=== PATIENT | male | born 1940 | race Caucasian/White ===

== ENCOUNTER 2019-07-25 04:36 | Inpatient (IN) | payer MEDICARE, OTHER ==
[~2019-07-25] VITALS: Ht 180.3 cm; Wt 91.1 kg
[2019-07-25 05:18] LABS: Basophils # (auto) 0 uL; Basophils % (auto) 0.3 % (0.0-2.0); Eosinophils # (auto) 0 uL; Eosinophils % (auto) 0.1 % (0.0-7.0); Hematocrit 43.4 % (41.0-53.0); Hemoglobin 14.8 g/dL (13.5-17.5); Lymphocytes # (auto) 0.5 uL; Mean Corpuscular Hemoglobin 31.9 pg (28.0-32.0); Mean Corpuscular Hgb Conc. 34.1 g/dL (32.0-36.0); Mean Corpuscular Volume 93.5 fL (80.0-100.0); Monocytes # (auto) 0.9 uL; Monocytes % (auto) 12.3 % (0.0-12.0); Neutrophils % (auto) 80.3 % (37.0-80.0); Platelet Count (auto) 136 10^3/uL (140-450); Red Blood Cells 4.64 10^6/uL (4.5-5.90); Red Cell Distribution Width 14.3 % (11.8-14.3); White Blood Cell 7.5 10^3/uL (4.4-10.8)
[2019-07-25 05:34] LABS: Albumin 3.6 g/dL (3.4-5.0); Calcium 8.8 mg/dL (8.5-10.1); Potassium 3.7 mmol/L (3.5-5.1)
[2019-07-25 05:39] LABS: BUN/Creatinine Ratio 8.6; Bilirubin, Total 0.8 mg/dL (0.2-1.0); Total Protein 7.2 g/dL (6.4-8.2)
[2019-07-25 05:45] LABS: INR 1.17 (0.9-1.15)
[2019-07-25] MEDS ORDERED: ENOXAPARIN SOD 100 MG/1 ML SYRINGE SC ONE (07:30)
[2019-07-25] MEDS ORDERED: FUROSEMIDE 40 MG/4 ML VIAL IV ONE (07:30)
[2019-07-25] MEDS ORDERED: CLOPIDOGREL BISULFATE 75 MG TAB PO ONE (07:30)
[2019-07-25] MEDS ORDERED: LACTULOSE 20Gm/30ML SOLN PO PRN (09:15)
[2019-07-25] MEDS ORDERED: TEMAZEPAM 15 MG CAP PO PRN (09:15)
[2019-07-25] MEDS ORDERED: MORPHINE SULF INJ 2 MG/ML SYRINGE 1ML IV PRN (09:15)
[2019-07-25] MEDS ORDERED: NITROGLYCERIN 0.4 MG SL TAB SL PRN (09:15)
[2019-07-25] MEDS ORDERED: ACETAMINOPHEN 500 MG TAB PO PRN (09:15)
[2019-07-25] MEDS ORDERED: PROMETHAZINE HCL 25 MG/ML 1ML IV PRN (09:15)
[2019-07-25] MEDS ORDERED: traMADol HCL 50 MG TAB PO PRN (09:15)
[2019-07-25] MEDS ORDERED: DEXTROSE (50%) 50ML SYRG IV PRN (09:15)
[2019-07-25] MEDS: ASPirin 81 mg TAB PO SCH (10:00)
[2019-07-25] MEDS ORDERED: CLOPIDOGREL BISULFATE 75 MG TAB PO SCH (10:00)
[2019-07-25] MEDS: CARVEDILOL 3.125 MG TAB PO SCH ×2 (10:00→11:38)
[2019-07-25] MEDS ORDERED: ASPirin 81 mg TAB PO SCH (10:00)
[2019-07-25] MEDS: NITROGLYCERIN 0.2MG/HR TOPICAL PATCH TD SCH (10:00)
[2019-07-25] MEDS: ENOXAPARIN SOD 80 MG/0.8ML SYRINGE SC SCH ×2 (10:00→22:00)
[2019-07-25] MEDS: ENALAPRIL MALEATE 2.5 MG TAB PO SCH (10:00)
[2019-07-25] MEDS: FUROSEMIDE 40 MG/4 ML VIAL IV SCH (10:00)
[2019-07-25] MEDS: POTASSIUM CHL 20 Meq TABLET PO SCH (10:00)
[2019-07-25] MEDS ORDERED: ALBUTEROL SULF 2.5 MG/0.5ML(0.5%) NEB SOLN NEB PRN (10:15)
[2019-07-25 10:55] VITALS: BP 104/41
[2019-07-25] MEDS: InsuLIN REG 1unit/0.01ml Soln (100units/ml) SC SCH ×2 (11:30→17:00)
[2019-07-25] MEDS: ACCU-CHEK COMFORT CURVE STRIP VI SCH ×3 (11:40→22:26)
[2019-07-25] MEDS ORDERED: ADENOSINE 76 MG in GIVE UN-DILUTED 0 ML IV STA (12:15)
[2019-07-25] MEDS: IPRATROPIUM BROM 0.5 MG/2.5ML INH SOL NEB SCH ×2 (12:46→18:00)
[2019-07-25] MEDS: ALBUTEROL SULF 2.5 MG/0.5ML(0.5%) NEB SOLN NEB SCH ×2 (12:46→18:00)
[2019-07-25] MEDS: SODIUM CHLOR 0.9% PF (SALINE LOCK) 10ML VIAL/SYR IV SCH ×2 (14:00→22:00)
[2019-07-25] MEDS: CLINDAMYCIN 600MG IV 50 ML IV SCH ×2 (14:00→23:40)
[2019-07-25 21:16] LABS: Urine Bacteria NONE SEEN /hpf (None Seen); Urine Blood Negative /uL (Negative); Urine Specific Gravity 1.016 (1.001-1.035); Urine WBC <1 /hpf (0 - 3)
[2019-07-25] MEDS: ATORVASTATIN 20 MG TAB PO SCH (23:40)
[2019-07-25] MEDS: TICAGRELOR 90 MG TAB PO SCH (23:41)
[2019-07-26] MEDS ORDERED: DEXTROSE (50%) 50ML SYRG IV PRN (02:30)
[2019-07-26 04:29] LABS: Basophils # (auto) 0 uL; Basophils % (auto) 0.5 % (0.0-2.0); Eosinophils # (auto) 0 uL; Eosinophils % (auto) 0.4 % (0.0-7.0); Hematocrit 44.1 % (41.0-53.0); Hemoglobin 14.8 g/dL (13.5-17.5); Lymphocytes # (auto) 1.1 uL; Mean Corpuscular Hemoglobin 31.5 pg (28.0-32.0); Mean Corpuscular Hgb Conc. 33.6 g/dL (32.0-36.0); Mean Corpuscular Volume 93.7 fL (80.0-100.0); Monocytes # (auto) 1.2 uL; Monocytes % (auto) 17.3 % (0.0-12.0); Neutrophils # (auto) 4.4 uL; Neutrophils % (auto) 65.8 % (37.0-80.0); Nucleated Red Blood Cells % 0.2 %; Platelet Count (auto) 134 10^3/uL (140-450); Red Blood Cells 4.71 10^6/uL (4.5-5.90); Red Cell Distribution Width 14.7 % (11.8-14.3); White Blood Cell 6.7 10^3/uL (4.4-10.8)
[2019-07-26 04:47] LABS: Albumin 3.5 g/dL (3.4-5.0); Calcium 8.8 mg/dL (8.5-10.1); Potassium 4.2 mmol/L (3.5-5.1)
[2019-07-26 04:51] LABS: BUN/Creatinine Ratio 20.6; Bilirubin, Total 0.6 mg/dL (0.2-1.0); Total Protein 7.1 g/dL (6.4-8.2)
[2019-07-26] MEDS: InsuLIN REG 1unit/0.01ml Soln (100units/ml) SC SCH ×3 (07:00→17:59)
[2019-07-26] MEDS: ACCU-CHEK COMFORT CURVE STRIP VI SCH ×3 (07:00→17:59)
[2019-07-26] MEDS: SODIUM CHLOR 0.9% PF (SALINE LOCK) 10ML VIAL/SYR IV SCH ×3 (07:28→22:00)
[2019-07-26] MEDS: CLINDAMYCIN 600MG IV 50 ML IV SCH ×3 (07:28→22:10)
[2019-07-26] MEDS: ALBUTEROL SULF 2.5 MG/0.5ML(0.5%) NEB SOLN NEB SCH ×4 (10:04→18:32)
[2019-07-26] MEDS: IPRATROPIUM BROM 0.5 MG/2.5ML INH SOL NEB SCH ×4 (10:04→18:32)
[2019-07-26] MEDS: FUROSEMIDE 40 MG/4 ML VIAL IV SCH (13:24)
[2019-07-26] MEDS: LEVOFLOXACIN 500MG 100 ML IV SCH (13:24)
[2019-07-26] MEDS: ENALAPRIL MALEATE 2.5 MG TAB PO SCH (13:25)
[2019-07-26] MEDS: ASPirin 81 mg TAB PO SCH (13:25)
[2019-07-26] MEDS: POTASSIUM CHL 20 Meq TABLET PO SCH (13:25)
[2019-07-26] MEDS: ENOXAPARIN SOD 80 MG/0.8ML SYRINGE SC SCH ×2 (13:25→21:58)
[2019-07-26] MEDS: CARVEDILOL 3.125 MG TAB PO SCH ×2 (13:25→22:09)
[2019-07-26] MEDS: TICAGRELOR 90 MG TAB PO SCH ×2 (13:25→22:43)
[2019-07-26] MEDS: NITROGLYCERIN 0.2MG/HR TOPICAL PATCH TD SCH (13:25)
--- NOTE | 2019-07-26 17:20 | NUR ---
ATTEMPTED TO CALL ALICIA SIM IN ER, PLACED ON HOLD FOR LONG PERIOD OF TIME NO ANSWER
--- NOTE | 2019-07-26 17:23 | NUR ---
PT ARRIVED ON UNIT Telemetry admit from MEREDITH KIDD admitted to Telemetry unit after SBAR received. Patient oriented to JACKSON RAMÍREZ, primary RN, unit, room, bed, and unit policies regarding patient care and visiting hours. Patient now on continuous telemetry monitoring, tele box # 70 and telemetry reading on arrival to unit is . Patient placed on bedside oxygen, weighed by bedscale and encouraged to call if they need something. All questions and concerns addressed, patient verbalized understanding. Note:
[2019-07-26 18:10] VITALS: BP 125/68
--- NOTE | 2019-07-26 20:00 | NUR ---
Opening Shift Note Assumed care of patient, awake and alert. No S/S of distress/SOB or pain. Patient's significant other at bedside. Patient instructed on POC and to call for assist PRN, will continue to monitor for changes Q1hr and PRN. Patient up using bedside commode. He denies any dizziness or lightheadedness. Bed in low position and call light in reach.
[2019-07-26 21:44] VITALS: BP 125/68
[2019-07-26] MEDS: ATORVASTATIN 20 MG TAB PO SCH (21:57)
[2019-07-27] MEDS: ACCU-CHEK COMFORT CURVE STRIP VI SCH ×4 (00:11→17:46)
[2019-07-27] MEDS: ALBUTEROL SULF 2.5 MG/0.5ML(0.5%) NEB SOLN NEB SCH ×4 (00:14→19:53)
[2019-07-27] MEDS: IPRATROPIUM BROM 0.5 MG/2.5ML INH SOL NEB SCH ×4 (00:14→19:53)
[2019-07-27 05:10] VITALS: BP 141/80
[2019-07-27] MEDS: CLINDAMYCIN 600MG IV 50 ML IV SCH ×3 (05:59→21:57)
[2019-07-27] MEDS: SODIUM CHLOR 0.9% PF (SALINE LOCK) 10ML VIAL/SYR IV SCH ×3 (06:10→22:12)
[2019-07-27] MEDS: InsuLIN REG 1unit/0.01ml Soln (100units/ml) SC SCH ×4 (06:11→17:47)
[2019-07-27 08:16] LABS: Potassium 3.8 mmol/L (3.5-5.1)
[2019-07-27 08:34] LABS: BUN/Creatinine Ratio 19.3; Magnesium 2.4 mg/dL (1.6-2.6)
[2019-07-27 09:00] VITALS: BP 137/76
[2019-07-27] MEDS: FUROSEMIDE 40 MG/4 ML VIAL IV SCH (10:10)
[2019-07-27] MEDS: LEVOFLOXACIN 500MG 100 ML IV SCH (10:10)
[2019-07-27] MEDS: TICAGRELOR 90 MG TAB PO SCH ×2 (10:11→21:54)
[2019-07-27] MEDS: ASPirin 81 mg TAB PO SCH (10:11)
[2019-07-27] MEDS: CARVEDILOL 3.125 MG TAB PO SCH ×2 (10:11→21:56)
[2019-07-27] MEDS: ENOXAPARIN SOD 80 MG/0.8ML SYRINGE SC SCH ×2 (10:11→22:12)
[2019-07-27] MEDS: ENALAPRIL MALEATE 2.5 MG TAB PO SCH (10:11)
[2019-07-27] MEDS: POTASSIUM CHL 20 Meq TABLET PO SCH (10:11)
[2019-07-27] MEDS: NITROGLYCERIN 0.2MG/HR TOPICAL PATCH TD SCH (10:12)
[2019-07-27 12:30] VITALS: BP 129/66
[2019-07-27] MEDS ORDERED: TAMS0.4C36 PO (12:59)
[2019-07-27] MEDS ORDERED: FINA5TAB4 PO (12:59)
[2019-07-27] MEDS ORDERED: TICA90TA PO (12:59)
[2019-07-27] MEDS ORDERED: LATA0.0015 EACHEYE (12:59)
[2019-07-27] MEDS ORDERED: ATOR20TA50 PO (12:59)
[2019-07-27] MEDS ORDERED: ALLO300T2 PO (12:59)
[2019-07-27] MEDS ORDERED: ASPI-404 PO (12:59)
[2019-07-27] MEDS ORDERED: METO-158 PO (12:59)
[2019-07-27] MEDS ORDERED: LOSA100T33 PO (12:59)
[2019-07-27 17:00] VITALS: BP 139/79
--- NOTE | 2019-07-27 20:00 | NUR ---
Opening Shift Note Assumed care of patient, awake and alert. No S/S of distress/SOB or pain. Instructed on POC and to call for assist PRN, will continue to monitor for changes Q1hr and PRN.
[2019-07-27] MEDS: ATORVASTATIN 20 MG TAB PO SCH (21:55)
[2019-07-27 22:28] VITALS: BP 118/48
[2019-07-28] MEDS: IPRATROPIUM BROM 0.5 MG/2.5ML INH SOL NEB SCH ×4 (01:25→19:18)
[2019-07-28] MEDS: ALBUTEROL SULF 2.5 MG/0.5ML(0.5%) NEB SOLN NEB SCH ×4 (01:25→19:18)
--- NOTE | 2019-07-28 01:25 | NUR ---
RT NOTE: PT CHECKED BY RT @ THIS TIME. PT SLEEPING. PT PREVIOUSLY REQUESTED NOT TO BE WOKEN UP FOR 0000 SCHEDULED MED NEB TX. NO SOB OR DISTRESS NOTED. WILL CONT SCHEDULED TX @ 0600.
[2019-07-28 05:58] VITALS: BP 146/76
[2019-07-28] MEDS: ACCU-CHEK COMFORT CURVE STRIP VI SCH ×4 (06:10→17:37)
[2019-07-28] MEDS: InsuLIN REG 1unit/0.01ml Soln (100units/ml) SC SCH ×4 (06:10→17:37)
[2019-07-28] MEDS: SODIUM CHLOR 0.9% PF (SALINE LOCK) 10ML VIAL/SYR IV SCH ×3 (06:10→22:18)
[2019-07-28] MEDS: CLINDAMYCIN 600MG IV 50 ML IV SCH ×3 (06:11→22:15)
[2019-07-28 07:06] LABS: BUN/Creatinine Ratio 24.1; Calcium 8.3 mg/dL (8.5-10.1); Potassium 3.8 mmol/L (3.5-5.1)
[2019-07-28 08:35] VITALS: BP 120/66
[2019-07-28 08:49] VITALS: BP 120/66
--- NOTE | 2019-07-28 09:37 | NUR ---
PT IS AMBULATING IN [facility] WITH . D/C FROM [facility]
[2019-07-28] MEDS: ASPirin 81 mg TAB PO SCH (10:42)
[2019-07-28] MEDS: FUROSEMIDE 40 MG/4 ML VIAL IV SCH (10:42)
[2019-07-28] MEDS: LEVOFLOXACIN 500MG 100 ML IV SCH (10:42)
[2019-07-28] MEDS: TICAGRELOR 90 MG TAB PO SCH ×2 (10:42→22:15)
[2019-07-28] MEDS: ENALAPRIL MALEATE 2.5 MG TAB PO SCH (10:43)
[2019-07-28] MEDS: ENOXAPARIN SOD 80 MG/0.8ML SYRINGE SC SCH ×2 (10:43→22:17)
[2019-07-28] MEDS: CARVEDILOL 3.125 MG TAB PO SCH ×2 (10:43→22:17)
[2019-07-28] MEDS: POTASSIUM CHL 10 Meq TABLET PO SCH (10:43)
[2019-07-28 12:37] VITALS: BP 114/67
[2019-07-28 17:34] VITALS: BP 126/78
--- NOTE | 2019-07-28 17:56 | NUR ---
Respiratory note: AT BEDSIDE FOR MED HAMLET YANEZ.
[2019-07-28] MEDS: ATORVASTATIN 20 MG TAB PO SCH (22:16)
[2019-07-28 23:54] VITALS: BP 142/73
[2019-07-29] VITALS (9 sets, daily range): BP systolic 128–168; BP diastolic 67–97
[2019-07-29] MEDS: ALBUTEROL SULF 2.5 MG/0.5ML(0.5%) NEB SOLN NEB SCH ×4 (00:04→18:18)
[2019-07-29] MEDS: IPRATROPIUM BROM 0.5 MG/2.5ML INH SOL NEB SCH ×4 (00:04→18:18)
[2019-07-29] MEDS: InsuLIN REG 1unit/0.01ml Soln (100units/ml) SC SCH ×4 (06:00→17:37)
[2019-07-29] MEDS: ACCU-CHEK COMFORT CURVE STRIP VI SCH ×4 (06:00→17:37)
[2019-07-29 06:06] LABS: Basophils # (auto) 0 uL; Basophils % (auto) 0.4 % (0.0-2.0); Eosinophils # (auto) 0.1 uL; Eosinophils % (auto) 3.2 % (0.0-7.0); Hematocrit 40.8 % (41.0-53.0); Hemoglobin 13.9 g/dL (13.5-17.5); Lymphocytes % (auto) 21.9 % (10.0-50.0); Mean Corpuscular Hemoglobin 31.7 pg (28.0-32.0); Mean Corpuscular Volume 93.2 fL (80.0-100.0); Monocytes # (auto) 0.5 uL; Neutrophils # (auto) 2.7 uL; Neutrophils % (auto) 62.5 % (37.0-80.0); Nucleated Red Blood Cells % 0.1 %; Platelet Count (auto) 131 10^3/uL (140-450); Red Blood Cells 4.38 10^6/uL (4.5-5.90); Red Cell Distribution Width 14.5 % (11.8-14.3); White Blood Cell 4.4 10^3/uL (4.4-10.8)
[2019-07-29] MEDS: CLINDAMYCIN 600MG IV 50 ML IV SCH ×3 (06:19→22:19)
[2019-07-29] MEDS: SODIUM CHLOR 0.9% PF (SALINE LOCK) 10ML VIAL/SYR IV SCH ×3 (06:19→22:21)
[2019-07-29 06:28] LABS: Calcium 8.6 mg/dL (8.5-10.1); Potassium 3.8 mmol/L (3.5-5.1)
[2019-07-29 06:31] LABS: INR 1.11 (0.9-1.15); Partial Thromboplastin Time 29.3 sec (23.64-32.05)
--- NOTE | 2019-07-29 07:30 | NUR ---
Opening Shift Note Assumed care of patient, awake and alert. No S/S of distress/SOB. Pt denies having any pain at this time. Bed in lowest and locked position with side rails up x2 and call light within reach. Instructed on POC and to call for assist PRN, will continue to monitor for changes Q1hr and PRN.
--- NOTE | 2019-07-29 08:25 | NUR ---
IV removal RIGHT FA IV DC'd with clean sterile technique, catheter fully intact. Pressure dressing applied to site. Patient tolerated well.
--- NOTE | 2019-07-29 08:30 | NUR ---
IV insertion IV access obtained, via clean sterile technique by inserting 20 gauge catheter at RIGHT FA after 1 attempt(s). IV secured properly. No trauma to site. Patient tolerated well.
--- NOTE | 2019-07-29 09:10 | NUR ---
PATIENT TAKEN TO GOVERNMENT OPERATIONS CONSULTANT.
[2019-07-29] MEDS: ENOXAPARIN SOD 80 MG/0.8ML SYRINGE SC SCH (10:00)
[2019-07-29] MEDS ORDERED: fentaNYL CITRATE 100 MCG/2 ML VL ONE (10:35)
[2019-07-29] MEDS ORDERED: ANGIOMAX 250 MG VIAL IV ONE ×2 (10:35→12:13)
[2019-07-29] MEDS ORDERED: SODIUM CHL 0.9% 50 ML ONE ×2 (10:36→12:13)
[2019-07-29] MEDS ORDERED: LIDOCAINE 2%HCL (LOCAL ANESTH.) INJ 20ML MDV ONE (10:36)
[2019-07-29] MEDS ORDERED: MIDAZOLAM HCL 1MG/1ML-2 ML VIAL ONE ×2 (10:36→11:32)
--- NOTE | 2019-07-29 11:18 | NUR ---
Respiratory note: SCHEDULED MED NEB TX NOT GIVEN. PT AT A PROCEDURE
[2019-07-29] MEDS ORDERED: IODIXANOL 320MG/ML 100ML BTL IV ONE (11:30)
--- NOTE | 2019-07-29 12:55 | NUR ---
NUTRITION ASSESSMENT NOTES Please refer to link notes of nutrition screen form filed under the intervention section of the plan of care for further details. Est. Needs: 2000 kcal to 2400 kcal (25-30 kcal/kgBW), 64 gms to 81 gms pro (0.8-1.0 gms/kgBW). Will continue to monitor pertinent labs and reassess nutrient need prn Thank you. Addendum: 07/29/19 at [address] Amended: Links added.
--- NOTE | 2019-07-29 13:15 | NUR ---
Per RN pt is on hold until tomorrow. Addendum: 07/29/19 at 1557 by Dmitry Suh PTA Amended: Links added.
[2019-07-29] MEDS ORDERED: PANTOPRAZOLE 40 MG/10 ML VIAL INJ IV ONE (14:00)
--- NOTE | 2019-07-29 14:20 | NUR ---
RECEIVED REPORT FROM SUPERVISOR CUSTOMER SERVICES RN, KRISTEN. AWAITING CALL BACK.
--- NOTE | 2019-07-29 14:45 | NUR ---
PATIENT ARRIVED TO FLOOR FROM DENITRATOR. PATIENT LAYING FLAT IN BED, TOLERATING WELL. NO S/S OF SOB OR DISTRESS. BED IN LOWEST AND LOCKED POSITION WITH SIDE RAILS UP X2 AND CALL LIGHT WITHIN REACH. WILL CONTINUE TO MONITOR.
[2019-07-29] MEDS: FUROSEMIDE 40 MG/4 ML VIAL IV SCH (15:05)
[2019-07-29] MEDS: ASPirin 81 mg TAB PO SCH (15:05)
[2019-07-29] MEDS: CARVEDILOL 3.125 MG TAB PO SCH (15:06)
[2019-07-29] MEDS: TICAGRELOR 90 MG TAB PO SCH ×2 (15:06→22:19)
[2019-07-29] MEDS: ENALAPRIL MALEATE 2.5 MG TAB PO SCH (15:06)
[2019-07-29] MEDS: POTASSIUM CHL 10 Meq TABLET PO SCH (15:07)
--- NOTE | 2019-07-29 16:03 | NUR ---
Assessment SW attempted to do SW assessment twice today, once during the morning and once in the afternoon. Pt's bed was missing during both visits. Pt will assess for pt's needs closer to d/c. Addendum: 07/29/19 at 1605 by CLIFFORD LORD SS Amended: Links added.
[2019-07-29] MEDS ORDERED: cloNIDine HCL 0.1 MG TAB PO PRN (17:15)
--- NOTE | 2019-07-29 17:16 | NUR ---
SPOKE TO MAO WOODWARD REGARDING PATIENTS BLOOD PRESSURE AND BLOOD ON PATIENTS SHEET. TRACE AWARE, NO NEW ORDERS RECEIVED AT THIS TIME.
--- NOTE | 2019-07-29 21:05 | NUR ---
Opening Shift Note Assumed care of patient, awake and alert. Family on bedside. Dressing in groin clean,dry and intact. No S/S of distress/SOB or pain. Instructed on POC and to call for assist PRN, will continue to monitor for changes Q1hr and PRN.
[2019-07-29] MEDS: ATORVASTATIN 20 MG TAB PO SCH (22:21)
[2019-07-29] MEDS: CARVEDILOL 12.5 MG TAB PO SCH (22:21)
--- NOTE | 2019-07-30 | NUR ---
Respiratory note: PT REFUSED SCHED MED NEB TX. PT IS RESTING IN BED WITH NO S/S OF SOB OR DISTRESS. RN AT BEDSIDE. WILL CONTINUE TO MONITOR.
[2019-07-30 05:00] VITALS: BP 123/71
[2019-07-30] MEDS: ALBUTEROL SULF 2.5 MG/0.5ML(0.5%) NEB SOLN NEB SCH ×4 (05:35→18:00)
[2019-07-30] MEDS: IPRATROPIUM BROM 0.5 MG/2.5ML INH SOL NEB SCH ×4 (05:35→18:00)
[2019-07-30 06:00] LABS: Basophils # (auto) 0 uL; Basophils % (auto) 0.3 % (0.0-2.0); Eosinophils # (auto) 0 uL; Eosinophils % (auto) 0.2 % (0.0-7.0); Hematocrit 40.9 % (41.0-53.0); Lymphocytes # (auto) 0.6 uL; Lymphocytes % (auto) 6.8 % (10.0-50.0); Mean Corpuscular Hemoglobin 32.1 pg (28.0-32.0); Mean Corpuscular Hgb Conc. 34.3 g/dL (32.0-36.0); Mean Corpuscular Volume 93.6 fL (80.0-100.0); Monocytes # (auto) 0.6 uL; Monocytes % (auto) 6.8 % (0.0-12.0); Neutrophils # (auto) 7.4 uL; Neutrophils % (auto) 85.9 % (37.0-80.0); Nucleated Red Blood Cells % 0.1 %; Platelet Count (auto) 141 10^3/uL (140-450); Red Blood Cells 4.37 10^6/uL (4.5-5.90); Red Cell Distribution Width 14.6 % (11.8-14.3); White Blood Cell 8.7 10^3/uL (4.4-10.8)
[2019-07-30] MEDS: InsuLIN REG 1unit/0.01ml Soln (100units/ml) SC SCH ×4 (06:00→18:00)
[2019-07-30] MEDS: ACCU-CHEK COMFORT CURVE STRIP VI SCH ×4 (06:00→18:00)
[2019-07-30 06:33] LABS: Potassium 5.2 mmol/L (3.5-5.1)
[2019-07-30 06:42] LABS: BUN/Creatinine Ratio 21.9; Calcium 8.8 mg/dL (8.5-10.1); Magnesium 2.4 mg/dL (1.6-2.6)
[2019-07-30] MEDS: SODIUM CHLOR 0.9% PF (SALINE LOCK) 10ML VIAL/SYR IV SCH ×2 (06:52→14:17)
[2019-07-30] MEDS: CLINDAMYCIN 600MG IV 50 ML IV SCH ×2 (06:53→14:17)
--- NOTE | 2019-07-30 08:00 | NUR ---
PATIENT STATED THAT HE IS HAVING DIFFICULTIES VOIDING. PATIENT STATED "I USE MEDICATION DUE TO MY PROSTATE PROBLEMS". PAGED DR. METCALF, AWAITING CALL BACK.
--- NOTE | 2019-07-30 08:44 | NUR ---
Faxed Life Vest order/clinical information to JOSE A.
[2019-07-30 09:00] VITALS: BP_SYST 128; BP_SYST 133; BP_DIAS 70; BP_DIAS 75
[2019-07-30] MEDS: POTASSIUM CHL 10 Meq TABLET PO SCH (10:00)
[2019-07-30] MEDS ORDERED: PANTOPRAZOLE 40 MG/10 ML VIAL INJ IV SCH (10:00)
--- NOTE | 2019-07-30 10:00 | NUR ---
PATIENTS RIGHT GROIN INCISION HAS BRUISING AND IS SOFT TO TOUCH. BRUISING WAS TRACED AND PAGED DR. METCALF.
--- NOTE | 2019-07-30 10:00 | NUR ---
PATIENT EDUCATION. RN EDUCATED PATIENT ON THE RISKS OF THE INCISION SITE AND THE RISKS AND BENEFITS OF RESTRAINING FROM ANY STRENUOUS ACTIVITY AND CONTINUING BED REST. THE RN ALSO EDUCATED THE PATIENT ON THE IMPORTANCE OF MONITORING THE INCISION SITE. PATIENT VERBALIZED UNDERSTANDING AND STATED "I JUST CANT LAY IN BED ALL DAY".
--- NOTE | 2019-07-30 10:02 | NUR ---
SPOKE TO DR. METCALF REGARDING PATIENT HOME MEDICATIONS. NEW ORDERS RECEIVED, READ BACK AND VERIFIED. SEE EMR FOR ORDERS.
[2019-07-30] MEDS ORDERED: FINASTERIDE 5 MG TAB PO SCH (10:15)
--- NOTE | 2019-07-30 10:30 | NUR ---
SPOKE TO DR. METCALF. RN NOTIFIED DR. METCALF THAT THE PATIENTS RIGHT GROIN INCISION SITE HAS BRUISING AND IS SOFT TO TOUCH. RN NOTIFIED MD THAT THE PATIENT HAS NOT VOIDED AT THIS TIME. MD AWARE. ORDERS RECEIVED TO VERIFY WITH CARDIOLOGY THAT THE PATIENT CAN BE DISCHARGED.
[2019-07-30] MEDS: ASPirin 81 mg TAB PO SCH (10:51)
[2019-07-30] MEDS: TICAGRELOR 90 MG TAB PO SCH (10:51)
[2019-07-30] MEDS: FUROSEMIDE 40 MG/4 ML VIAL IV SCH (10:52)
[2019-07-30] MEDS: CARVEDILOL 12.5 MG TAB PO SCH (10:53)
[2019-07-30] MEDS: ENALAPRIL MALEATE 2.5 MG TAB PO SCH (10:54)
--- NOTE | 2019-07-30 11:00 | NUR ---
IV insertion AND IV removal IV access obtained, via clean sterile technique by inserting 20 gauge catheter at LEFT FA after 1 attempt(s). IV secured properly. No trauma to site. Patient tolerated well. RIGHT FA IV INFILTRATED AND DC'd with clean sterile technique, catheter fully intact. Pressure dressing applied to site. Heat applied to right FA and Dr. Avila notified of infiltration. Patient tolerated well.
--- NOTE | 2019-07-30 11:15 | NUR ---
PAGED DR. MASSEY REGARDING RIGHT GROIN INCISION. AWAITING CALL BACK.
--- NOTE | 2019-07-30 12:30 | NUR ---
PATIENT VERBALIZED THAT HE VOIDED IN THE TOILET. PATIENT STATED THAT HE IS UNABLE TO USE THE URINAL.
--- NOTE | 2019-07-30 12:47 | NUR ---
RECEIVED CALL BACK FROM DR. MASSEY REGARDING PATIENT INCISION SITE. RN NOTIFIED MD OF BRUISING AROUND THE RIGHT GROIN INCISION. MD AWARE AND NO NEW ORDERS RECEIVED AT THIS TIME. PER DR. MASSEY, THE PATIENT IS CLEAR FOR DISCHARGE.
[2019-07-30 13:00] VITALS: BP 138/75
[2019-07-30] MEDS ORDERED: PANT40TA2 PO (13:04)
[2019-07-30 13:55] LABS: BUN/Creatinine Ratio 21.5; Calcium 9.1 mg/dL (8.5-10.1); Potassium 4.2 mmol/L (3.5-5.1)
[2019-07-30] MEDS ORDERED: ENAL2.5T PO (15:14)
[2019-07-30] MEDS ORDERED: CARV25TA PO (15:14)
[2019-07-30] MEDS ORDERED: FURO1TAB33 PO (15:14)
--- NOTE | 2019-07-30 15:47 | NUR ---
RECEIVED CALL FROM [employer] VEST VENDOR. PER VENDOR, THE LIFE VEST WILL BE DELIVERED BETWEEN [phone] [facility].
--- NOTE | 2019-07-30 16:00 | NUR ---
SPOKE TO HUSSEIN WITH SOCIAL SERVICE. PER HUSSEIN, THE HOME HEALTH WILL BE SET UP AND THE PATIENT IS ABLE TO BE DISCHARGED.
--- NOTE | 2019-07-30 16:26 | NUR ---
re-assessment Per consult [facility] for safety, PT, medication management, vitals. Romy SIM gave patient choice letter and he chose [facility] per Romy SIM. Per [facility] service will start on 07/31/19. Patient has been notified. Addendum: 07/30/19 at 1631 by Gwen Nagy Amended: Links added.
--- NOTE | 2019-07-30 16:28 | NUR ---
Assessment Pt is a 87 yr old alert and oriented male. Prior to admit, pt lives with Laurence Vargas, who is his emergency contact at [phone] and [phone]. No DME used and pt was ambulatory and independent prior to admit. Pt's primary is Dr. Lozoya, has no AD, and receives income, with no HH prior. Pt is getting a life vest ordered currently and then will d/c home upon medical clearance. Pt is agreeable to d/c plan. Pt's tamiko will transport home upon d/c. Addendum: 07/30/19 at 1631 by CLIFFORD LORD Amended: Links added.
[2019-07-30 17:00] VITALS: BP 102/53
[2019-07-30 17:48] VITALS: BP 138/75
[2019-07-30] MEDS ORDERED: TAMSULOSIN HYDROCHLORIDE 0.4 MG CAP PO SCH (18:00)
--- NOTE | 2019-07-30 18:20 | NUR ---
PATIENT VERBALIZED THAT HE VOIDED IN THE TOILET AND THAT HE IS VOIDING "NORMALLY".
--- NOTE | 2019-07-30 19:30 | NUR ---
RECEIVED PATIENT IN BED, AAOX4. IS IIN THE ROOM. INTRODUCED MYSELF TO THE PATIENT, . ORIENTATION GIVEN. AWAITING FOR THE [employer] LIFE VEST. AWARE THAT HE IS BEING DISCHARGE HOME TONIGHT. DENIES ANY PAIN NO SOB NOTED. NO DISTRESS NOTED. RIGHT GROIN HAS A DRESSING WHICH IS CLEAN, DRY AND INTACT. SMALL HEMATOMA NOTED WHICH IS NOT PROGRESSING. MD IS AWARE. KEPT COMFORTABLE. NOTED.
--- NOTE | 2019-07-30 19:45 | NUR ---
[employer] VES STAFF DELIVERED THE EQUIPMENT TO THE PATIENT. THOROUGH EDUCATION PROVIDED TO THE PATIENT AND FAMILY. NOTED.
[2019-07-30 21:00] VITALS: BP 130/70
--- NOTE | 2019-07-30 21:00 | NUR ---
DISCHARGED PATIENT IN A STABLE CONDITION. EDUCATION PROVIDED. REMOVED IV ACCESS AND APPLIED STERILE DRESSING. REMOVED ALL ID BANDS. REMOVED TELE BOX AND SENT TO ICU AFTER CLEANING. BELONGINGS LIST SIGNED AND NOTHING IS MISSING. ADVISED TO CALL 911 OR VISIT ANY ER IF ANY SYMPTOM WORSENS. PATIENT IS WHEELED DOWN TO THE LOBBY VIA WHEEL CHAIR. VITALS ARE STABLE FOLLOWS: BP= 130/70 HR= 65 O2= 97% RA T= 98.0 RR= 18
== END 2019-07-30 20:57 | disposition home health service (06) | DRG 246 ==
LOC: ER 04:36 → EDBD 04:36 → OVERFLOW 04:37 → TELE-WESTW 07-26 17:51
PROVIDERS: ADMIT Internal Medicine; ATTEND Internal Medicine
PROC: 027036Z Dilation of Coronary Artery, One Artery with Three Drug-eluting Intraluminal Devices, Percutaneous Approach (ICD-10-PCS; principal; 2019-07-29)
PROC: 4A023N7 Measurement of Cardiac Sampling and Pressure, Left Heart, Percutaneous Approach (ICD-10-PCS; 2019-07-29)
PROC: B213YZZ Fluoroscopy of Multiple Coronary Artery Bypass Grafts using Other Contrast (ICD-10-PCS; 2019-07-29)
PROC: B218YZZ Fluoroscopy of Left Internal Mammary Bypass Graft using Other Contrast (ICD-10-PCS; 2019-07-29)
PROC: B211YZZ Fluoroscopy of Multiple Coronary Arteries using Other Contrast (ICD-10-PCS; 2019-07-29)
PROC: B215YZZ Fluoroscopy of Left Heart using Other Contrast (ICD-10-PCS; 2019-07-29)
DX: I21.4 Non-ST elevation (NSTEMI) myocardial infarction (principal); I50.43 Acute on chronic combined systolic (congestive) and diastolic (congestive) heart failure; J96.00 Acute respiratory failure, unspecified whether with hypoxia or hypercapnia; J44.1 Chronic obstructive pulmonary disease with (acute) exacerbation; E11.65 Type 2 diabetes mellitus with hyperglycemia; I25.10 Atherosclerotic heart disease of native coronary artery without angina pectoris; N40.0 Benign prostatic hyperplasia without lower urinary tract symptoms; E11.51 Type 2 diabetes mellitus with diabetic peripheral angiopathy without gangrene; E11.21 Type 2 diabetes mellitus with diabetic nephropathy; M19.90 Unspecified osteoarthritis, unspecified site; I12.9 Hypertensive chronic kidney disease with stage 1 through stage 4 chronic kidney disease, or unspecified chronic kidney disease; N18.9 Chronic kidney disease, unspecified; I25.5 Ischemic cardiomyopathy; E11.22 Type 2 diabetes mellitus with diabetic chronic kidney disease; Z95.820 Peripheral vascular angioplasty status with implants and grafts; Z95.1 Presence of aortocoronary bypass graft; Z79.84 Long term (current) use of oral hypoglycemic drugs; Z87.891 Personal history of nicotine dependence; Z79.899 Other long term (current) drug therapy; Z86.73 Personal history of transient ischemic attack (TIA), and cerebral infarction without residual deficits; Z86.718 Personal history of other venous thrombosis and embolism; E78.5 Hyperlipidemia, unspecified
CPT/HCPCS: 36415; 70450; 71045; 72192; 73630; 78452; 80048; 80053; 80061; 81001; 82550; 82962; 83036; 83735; 83880; 84484; 85025; 85379; 85610; 85652; 85730; 86141; 92928; 93005; 93017; 93306; 93459; 93886; 93926; 94640; 97110; 97116; 97530; 99152; 99153; C1874; C1887; C9113; G0378; J0153; J1815; J1956; J2250; J3490; Q9967

== ENCOUNTER → 2019-09-04 | Outpatient (CLI) | payer MEDICARE, OTHER ==
[~2019-09-04] MED LIST: ALLO300T2 PO; ASPI-404 PO; ATOR20TA50 PO; CARV25TA PO; ENAL2.5T PO; FINA5TAB4 PO; FURO1TAB33 PO; LATA0.0019 EACHEYE; PANT40TA2 PO; TAMS0.4C36 PO; TICA90TA PO
== END | disposition home or self-care (01) ==
LOC: Rad HDHVI 10:51
PROVIDERS: ATTEND Internal Medicine
DX: I08.8 Other rheumatic multiple valve diseases (principal); I50.9 Heart failure, unspecified; I42.9 Cardiomyopathy, unspecified; J44.9 Chronic obstructive pulmonary disease, unspecified
CPT/HCPCS: 93306

== ENCOUNTER → 2019-11-25 | Outpatient (CLI) | payer MEDICARE, OTHER | END | disposition home or self-care (01) | LOC: Rad HDHVI 07:56 | PROVIDERS: ATTEND Internal Medicine Cardiovascular Disease | DX: I35.0 Nonrheumatic aortic (valve) stenosis (principal); I25.10 Atherosclerotic heart disease of native coronary artery without angina pectoris; I42.9 Cardiomyopathy, unspecified; Z95.1 Presence of aortocoronary bypass graft; I51.7 Cardiomegaly | CPT/HCPCS: 93306 ==

== ENCOUNTER → 2020-03-02 | Outpatient (CLI) | payer MEDICARE, OTHER ==
[~2020-03-02] MED LIST changes: -ASPI-404 PO; +ASPI-543 PO; -ENAL2.5T PO; +ENAL2.5T7 PO
== END | disposition home or self-care (01) ==
LOC: Rad HDHVI 09:05
PROVIDERS: ATTEND Internal Medicine
DX: I08.2 Rheumatic disorders of both aortic and tricuspid valves (principal); I25.10 Atherosclerotic heart disease of native coronary artery without angina pectoris; I42.9 Cardiomyopathy, unspecified; Z95.5 Presence of coronary angioplasty implant and graft
CPT/HCPCS: 93306

== ENCOUNTER → 2020-07-20 | Outpatient (CLI) | payer MEDICARE, OTHER | END | disposition home or self-care (01) | LOC: Rad HDHVI 09:06 | PROVIDERS: ATTEND Internal Medicine | DX: I07.1 Rheumatic tricuspid insufficiency (principal); I35.8 Other nonrheumatic aortic valve disorders; I10 Essential (primary) hypertension; I25.10 Atherosclerotic heart disease of native coronary artery without angina pectoris | CPT/HCPCS: 93306 ==

== ENCOUNTER → 2020-07-23 | Outpatient (CLI) | payer MEDICARE, OTHER ==
[~2020-07-23] VITALS: Ht 179.1 cm; Wt 98.4 kg
[~2020-07-23] MED LIST changes: +ADENOSINE 83 MG in GIVE UN-DILUTED 0 ML IV ONE; +ADENOSINE 90 MG/30 ML INJ IV ONE
== END | disposition home or self-care (01) ==
LOC: Rad HDHVI 09:12
PROVIDERS: ATTEND Internal Medicine Cardiovascular Disease
DX: I25.10 Atherosclerotic heart disease of native coronary artery without angina pectoris (principal); I10 Essential (primary) hypertension; E78.00 Pure hypercholesterolemia, unspecified; J44.9 Chronic obstructive pulmonary disease, unspecified; Z82.49 Family history of ischemic heart disease and other diseases of the circulatory system; Z95.1 Presence of aortocoronary bypass graft
CPT/HCPCS: 78452; 93005; 96374; 96375; A9500; J0153

== ENCOUNTER → 2020-07-30 | Outpatient (CLI) | payer MEDICARE, OTHER ==
[~2020-07-30] MED LIST changes: -ADENOSINE 83 MG in GIVE UN-DILUTED 0 ML IV ONE; -ADENOSINE 90 MG/30 ML INJ IV ONE
[2020-07-30 11:48] LABS: Urine Blood Negative /uL (Negative); Urine Specific Gravity 1.012 (1.001-1.035)
[2020-07-30 11:53] LABS: Basophils # (auto) 0 10 ^3/uL (0-0.2); Basophils % (auto) 0.6 % (0.0-2.0); Eosinophils # (auto) 0.2 10 ^3/uL (0-0.8); Eosinophils % (auto) 3.2 % (0.0-7.0); Hematocrit 44.7 % (41.0-53.0); Hemoglobin 15.2 g/dL (13.5-17.5); Lymphocytes # (auto) 1.2 10 ^3/uL (0.4-5.4); Lymphocytes % (auto) 15.7 % (10.0-50.0); Mean Corpuscular Hemoglobin 30.8 pg (28.0-32.0); Mean Corpuscular Volume 90.5 fL (80.0-100.0); Monocytes # (auto) 0.7 10 ^3/uL (0-1.3); Monocytes % (auto) 9.4 % (0.0-12.0); Neutrophils # (auto) 5.3 10 ^3/uL (1.6-8.6); Neutrophils % (auto) 71.1 % (37.0-80.0); Nucleated Red Blood Cells % 0.4 %; Platelet Count (auto) 200 10^3/uL (140-450); Red Blood Cells 4.94 10^6/uL (4.5-5.90); Red Cell Distribution Width 13.9 % (11.8-14.3); White Blood Cell 7.5 10^3/uL (4.4-10.8)
[2020-07-30 11:56] LABS: Potassium 3.8 mmol/L (3.5-5.1)
[2020-07-30 12:02] LABS: Free T4 (Free Thyroxine) 1.59 ng/dL (0.89-1.76)
[2020-07-30 12:04] LABS: Albumin 3.5 g/dL (3.4-5.0); BUN/Creatinine Ratio 11.5; Bilirubin, Total 0.8 mg/dL (0.2-1.0); Total Protein 7.6 g/dL (6.4-8.2)
== END | disposition home or self-care (01) ==
LOC: LAB 08:27
PROVIDERS: ATTEND Internal Medicine
DX: C61 Malignant neoplasm of prostate (principal); D51.3 Other dietary vitamin B12 deficiency anemia; I10 Essential (primary) hypertension; E11.9 Type 2 diabetes mellitus without complications; E55.9 Vitamin D deficiency, unspecified; D64.9 Anemia, unspecified; R00.2 Palpitations; R53.1 Weakness; R30.0 Dysuria
CPT/HCPCS: 36415; 80053; 80061; 81003; 82306; 82607; 83036; 84153; 84403; 84439; 84443; 85025

== ENCOUNTER 2022-10-16 02:57 | Inpatient (IN) | payer MEDICARE, OTHER ==
[~2022-10-16] VITALS: Ht 175.3 cm; Wt 97.0 kg
[2022-10-16 03:44] LABS: Basophils # (auto) 0.1 10 ^3/uL (0-0.2); Basophils % (auto) 0.5 % (0.0-2.0); Eosinophils # (auto) 0.1 10 ^3/uL (0-0.8); Eosinophils % (auto) 0.9 % (0.0-7.0); Hematocrit 46.6 % (41.0-53.0); Hemoglobin 15.5 g/dL (13.5-17.5); Lymphocytes # (auto) 0.4 10 ^3/uL (0.4-5.4); Lymphocytes % (auto) 3.6 % (10.0-50.0); Mean Corpuscular Hemoglobin 30.3 pg (28.0-32.0); Mean Corpuscular Hgb Conc. 33.3 g/dL (32.0-36.0); Mean Corpuscular Volume 90.9 fL (80.0-100.0); Monocytes # (auto) 0.4 10 ^3/uL (0-1.3); Monocytes % (auto) 3.4 % (0.0-12.0); Neutrophils # (auto) 9.6 10 ^3/uL (1.6-8.6); Neutrophils % (auto) 91.6 % (37.0-80.0); Nucleated Red Blood Cells % 0.1 %; Red Blood Cells 5.13 10^6/uL (4.5-5.90); Red Cell Distribution Width 16.1 % (11.8-14.3); White Blood Cell 10.5 10^3/uL (4.4-10.8)
[2022-10-16 03:58] LABS: INR 1.07 (0.9-1.15); Partial Thromboplastin Time 22.2 sec (24.6-33.4)
[2022-10-16 04:00] LABS: Albumin 3.8 g/dL (3.4-5.0); Calcium 9.1 mg/dL (8.5-10.1); Magnesium 1.9 mg/dL (1.6-2.6); Potassium 4.1 mmol/L (3.5-5.1)
[2022-10-16 04:04] LABS: BUN/Creatinine Ratio 14.3 (10.0-20.0); Total Protein 7.4 g/dL (6.4-8.2)
[2022-10-16] MEDS ORDERED: cefTRIAXone SOD 1,000 MG VL IV ONE (05:00)
[2022-10-16] MEDS ORDERED: AZITHROMYCIN 250 MG TAB PO ONE (05:00)
[2022-10-16] MEDS ORDERED: PANTOPRAZOLE 40 MG/10 ML VIAL INJ IV ONE (08:45)
[2022-10-16] MEDS ORDERED: MORPHINE SULFATE INJ 2 MG/ml SYRG IV PRN (08:45)
[2022-10-16] MEDS ORDERED: DEXTROSE (50%) 50ML SYRG IV PRN (08:45)
[2022-10-16] MEDS ORDERED: NITROGLYCERIN 0.4 MG SL TAB SL PRN (08:45)
[2022-10-16] MEDS ORDERED: SACU1TAB4 PO (09:09)
[2022-10-16] MEDS ORDERED: ALBUTEROL SULF 2.5 MG/0.5ML(0.5%) NEB SOLN NEB PRN (09:15)
[2022-10-16] MEDS ORDERED: FUROSEMIDE 40 MG/4 ML VIAL IV ONE (09:15)
[2022-10-16] MEDS ORDERED: IPRATROPIUM BROM 0.5 MG/2.5ML INH SOL NEB PRN (09:15)
[2022-10-16 09:26] LABS: Urine Bacteria FEW /hpf (None Seen); Urine Blood 3+ /uL (Negative); Urine Budding Yeast MODERATE /hpf (None Seen); Urine Specific Gravity 1.017 (1.001-1.035); Urine WBC 81 /hpf (0 - 3)
[2022-10-16 09:46] LABS: Cholesterol 130 mg/dL (< 200); Triglycerides 63 mg/dL (< 150)
[2022-10-16 09:51] LABS: HDL Cholesterol 47 mg/dL (40-59); LDL Cholesterol 80 mg/dL (< 100)
[2022-10-16] MEDS ORDERED: TICAGRELOR 90 MG TAB PO SCH (10:00)
[2022-10-16] MEDS ORDERED: PATIENTS OWN MEDICATION (Carvedilol (Coreg) 1 TAB) PO SCH (10:00)
[2022-10-16] MEDS: PANTOPRAZOLE 40 MG/10 ML VIAL INJ IV SCH (10:00)
[2022-10-16] MEDS ORDERED: ENOXAPARIN SOD 40 MG/0.4 ML SYRINGE SC SCH (10:00)
[2022-10-16] MEDS: ALLOPURINOL 300 MG TAB PO SCH (10:31)
[2022-10-16] MEDS: ASPirin-EC 81 mg tab PO SCH (10:31)
[2022-10-16] MEDS: FINASTERIDE 5 MG TAB PO SCH (10:31)
[2022-10-16] MEDS: ATORVASTATIN 20 MG TAB PO SCH (10:31)
[2022-10-16] MEDS: POTASSIUM CHL 10 Meq TABLET PO SCH (10:31)
[2022-10-16] MEDS: CARVEDILOL 12.5 MG TAB PO SCH ×2 (11:50→21:50)
[2022-10-16] MEDS: ACCU-CHEK COMFORT CURVE STRIP VI SCH ×3 (11:51→21:50)
[2022-10-16] MEDS: InsuLIN REG 1unit/0.01ml Soln (100units/ml) SC SCH ×3 (12:35→22:00)
[2022-10-16] MEDS: IPRATROPIUM BROM 0.5 MG/2.5ML INH SOL NEB SCH ×2 (14:03→18:34)
[2022-10-16] MEDS: ALBUTEROL SULF 2.5 MG/0.5ML(0.5%) NEB SOLN NEB SCH ×2 (14:04→18:34)
[2022-10-16 17:16] VITALS: BP 115/85
[2022-10-16] MEDS: TAMSULOSIN HYDROCHLORIDE 0.4 MG CAP PO SCH (18:32)
[2022-10-16] MEDS: LATANOPROST 0.005 % OPTH(EYE) SOL 2.5ML EACHEYE SCH (18:37)
[2022-10-16 22:00] VITALS: BP 136/68
[2022-10-17] MEDS: IPRATROPIUM BROM 0.5 MG/2.5ML INH SOL NEB SCH ×5 (00:15→23:51)
[2022-10-17] MEDS: ALBUTEROL SULF 2.5 MG/0.5ML(0.5%) NEB SOLN NEB SCH ×5 (00:15→23:51)
[2022-10-17 05:00] VITALS: BP 127/63
[2022-10-17 06:13] LABS: Basophils # (auto) 0 10 ^3/uL (0-0.2); Basophils % (auto) 0.5 % (0.0-2.0); Eosinophils # (auto) 0 10 ^3/uL (0-0.8); Eosinophils % (auto) 0.1 % (0.0-7.0); Hematocrit 42.2 % (41.0-53.0); Lymphocytes # (auto) 0.6 10 ^3/uL (0.4-5.4); Lymphocytes % (auto) 6.6 % (10.0-50.0); Mean Corpuscular Hemoglobin 29.9 pg (28.0-32.0); Mean Corpuscular Hgb Conc. 33.2 g/dL (32.0-36.0); Mean Corpuscular Volume 90.1 fL (80.0-100.0); Monocytes # (auto) 0.8 10 ^3/uL (0-1.3); Neutrophils % (auto) 84.8 % (37.0-80.0); Nucleated Red Blood Cells % 0.2 %; Red Blood Cells 4.68 10^6/uL (4.5-5.90); Red Cell Distribution Width 16.3 % (11.8-14.3); White Blood Cell 9.4 10^3/uL (4.4-10.8)
[2022-10-17] MEDS: InsuLIN REG 1unit/0.01ml Soln (100units/ml) SC SCH ×4 (06:32→21:28)
[2022-10-17] MEDS: ACCU-CHEK COMFORT CURVE STRIP VI SCH ×4 (06:32→21:04)
[2022-10-17 06:34] LABS: Potassium 4.1 mmol/L (3.5-5.1)
[2022-10-17 06:57] LABS: Albumin 3.2 g/dL (3.4-5.0); BUN/Creatinine Ratio 19.3 (10.0-20.0); Bilirubin, Total 0.9 mg/dL (0.2-1.0); Calcium 8.9 mg/dL (8.5-10.1); Total Protein 6.6 g/dL (6.4-8.2)
[2022-10-17 08:30] VITALS: BP 132/75
[2022-10-17] MEDS: cefTRIAXone 1GM/50ML D5W 50 ML IV SCH (09:33)
[2022-10-17] MEDS: FINASTERIDE 5 MG TAB PO SCH (09:34)
[2022-10-17] MEDS: POTASSIUM CHL 10 Meq TABLET PO SCH (09:34)
[2022-10-17] MEDS: ATORVASTATIN 20 MG TAB PO SCH (09:34)
[2022-10-17] MEDS: ASPirin-EC 81 mg tab PO SCH (09:34)
[2022-10-17] MEDS: ALLOPURINOL 300 MG TAB PO SCH (09:34)
[2022-10-17] MEDS: TICAGRELOR 90 MG TAB PO SCH ×2 (09:34→21:27)
[2022-10-17] MEDS: PANTOPRAZOLE 40 MG/10 ML VIAL INJ IV SCH (09:35)
[2022-10-17] MEDS: CARVEDILOL 12.5 MG TAB PO SCH ×2 (09:35→21:04)
[2022-10-17] MEDS ORDERED: FUROSEMIDE 20 MG/2 ML VIAL IV SCH (10:00)
[2022-10-17] MEDS ORDERED: AZITHROMYCIN 500MG/ 250ML 250 ML IV SCH (10:00)
[2022-10-17] MEDS ORDERED: FUROSEMIDE 20 MG/2 ML VIAL IV ONE (12:00)
[2022-10-17 12:30] VITALS: BP 151/80
[2022-10-17 16:30] VITALS: BP 163/70
[2022-10-17] MEDS: LATANOPROST 0.005 % OPTH(EYE) SOL 2.5ML EACHEYE SCH (17:24)
[2022-10-17] MEDS: TAMSULOSIN HYDROCHLORIDE 0.4 MG CAP PO SCH (17:24)
[2022-10-17 22:00] VITALS: BP 132/57
[2022-10-18] MEDS: IPRATROPIUM BROM 0.5 MG/2.5ML INH SOL NEB SCH ×4 (00:34→18:46)
[2022-10-18] MEDS: ALBUTEROL SULF 2.5 MG/0.5ML(0.5%) NEB SOLN NEB SCH ×4 (00:34→18:46)
[2022-10-18 05:00] VITALS: BP 138/77
[2022-10-18 06:42] LABS: Potassium 4.2 mmol/L (3.5-5.1)
[2022-10-18 06:53] LABS: BUN/Creatinine Ratio 22.2 (10.0-20.0); Calcium 8.9 mg/dL (8.5-10.1)
[2022-10-18] MEDS: ACCU-CHEK COMFORT CURVE STRIP VI SCH ×4 (06:57→21:26)
[2022-10-18] MEDS: InsuLIN REG 1unit/0.01ml Soln (100units/ml) SC SCH ×4 (06:59→21:26)
[2022-10-18] MEDS: cefTRIAXone 1GM/50ML D5W 50 ML IV SCH (09:00)
[2022-10-18 09:10] VITALS: BP 138/69
[2022-10-18] MEDS: PANTOPRAZOLE 40 MG/10 ML VIAL INJ IV SCH (10:15)
[2022-10-18] MEDS: FINASTERIDE 5 MG TAB PO SCH (10:17)
[2022-10-18] MEDS: CARVEDILOL 12.5 MG TAB PO SCH ×2 (10:19→21:25)
[2022-10-18] MEDS: FUROSEMIDE 20 MG/2 ML VIAL IV SCH (10:20)
[2022-10-18] MEDS: ASPirin-EC 81 mg tab PO SCH (10:20)
[2022-10-18] MEDS: ATORVASTATIN 20 MG TAB PO SCH (10:20)
[2022-10-18] MEDS: TICAGRELOR 90 MG TAB PO SCH ×2 (10:20→21:25)
[2022-10-18] MEDS: POTASSIUM CHL 10 Meq TABLET PO SCH (10:20)
[2022-10-18] MEDS: ALLOPURINOL 300 MG TAB PO SCH (10:20)
[2022-10-18 12:48] VITALS: BP 116/76
[2022-10-18] MEDS: TAMSULOSIN HYDROCHLORIDE 0.4 MG CAP PO SCH (18:00)
[2022-10-18] MEDS: LATANOPROST 0.005 % OPTH(EYE) SOL 2.5ML EACHEYE SCH (18:00)
[2022-10-18 22:00] VITALS: BP 133/65
[2022-10-19] MEDS: ALBUTEROL SULF 2.5 MG/0.5ML(0.5%) NEB SOLN NEB SCH ×3 (00:01→12:12)
[2022-10-19] MEDS: IPRATROPIUM BROM 0.5 MG/2.5ML INH SOL NEB SCH ×3 (00:01→12:12)
[2022-10-19 05:00] VITALS: BP 131/65
[2022-10-19] MEDS: InsuLIN REG 1unit/0.01ml Soln (100units/ml) SC SCH ×2 (06:08→11:30)
[2022-10-19] MEDS: ACCU-CHEK COMFORT CURVE STRIP VI SCH ×2 (06:08→12:58)
[2022-10-19 09:21] VITALS: BP 127/66
[2022-10-19] MEDS: cefTRIAXone 1GM/50ML D5W 50 ML IV SCH (09:26)
[2022-10-19] MEDS: ALLOPURINOL 300 MG TAB PO SCH (09:27)
[2022-10-19] MEDS: FINASTERIDE 5 MG TAB PO SCH (09:27)
[2022-10-19] MEDS: POTASSIUM CHL 10 Meq TABLET PO SCH (09:27)
[2022-10-19] MEDS: ASPirin-EC 81 mg tab PO SCH (09:27)
[2022-10-19] MEDS: ATORVASTATIN 20 MG TAB PO SCH (09:27)
[2022-10-19] MEDS: FUROSEMIDE 20 MG/2 ML VIAL IV SCH (09:28)
[2022-10-19] MEDS: CARVEDILOL 12.5 MG TAB PO SCH (09:28)
[2022-10-19] MEDS: TICAGRELOR 90 MG TAB PO SCH (09:28)
[2022-10-19] MEDS ORDERED: PANTOPRAZOLE 40 MG TAB PO SCH (10:00)
[2022-10-19] MEDS ORDERED: FURO1TAB31 PO (11:38)
[2022-10-19] MEDS ORDERED: LEVO500T31 PO ×3 (11:38→11:42)
[2022-10-19 11:56] VITALS: BP 127/66
[2022-10-19 12:28] VITALS: BP 119/62
== END 2022-10-19 13:00 | disposition home or self-care (01) | DRG 871 ==
LOC: EDBD 02:57 → ER 02:57 → TELE 09:09 → TELE-WESTW 17:45
PROVIDERS: ADMIT Registered Nurse; ATTEND Internal Medicine
DX: A41.9 Sepsis, unspecified organism (principal); I50.43 Acute on chronic combined systolic (congestive) and diastolic (congestive) heart failure; J96.20 Acute and chronic respiratory failure, unspecified whether with hypoxia or hypercapnia; J44.0 Chronic obstructive pulmonary disease with (acute) lower respiratory infection; N39.0 Urinary tract infection, site not specified; I13.0 Hypertensive heart and chronic kidney disease with heart failure and stage 1 through stage 4 chronic kidney disease, or unspecified chronic kidney disease; N17.9 Acute kidney failure, unspecified; Z20.822 Contact with and (suspected) exposure to COVID-19; E78.5 Hyperlipidemia, unspecified; N18.31 Chronic kidney disease, stage 3a; E11.22 Type 2 diabetes mellitus with diabetic chronic kidney disease; E66.9 Obesity, unspecified; N40.0 Benign prostatic hyperplasia without lower urinary tract symptoms; M10.9 Gout, unspecified; Z83.3 Family history of diabetes mellitus; Z79.899 Other long term (current) drug therapy; Z95.1 Presence of aortocoronary bypass graft; I25.2 Old myocardial infarction; Z68.31 Body mass index [BMI] 31.0-31.9, adult
CPT/HCPCS: 36415; 36600; 71045; 80048; 80053; 80061; 81001; 82805; 82962; 83036; 83605; 83735; 83880; 84443; 84484; 85025; 85379; 85610; 85730; 87040; 87076; 87086; 87426; 93005; 93306; 93925; 93970; 94640; 96365; 96372; 96375; 97110; 97116; 97163; 97530; C9113; G0378; J0696; J1815

== ENCOUNTER 2022-11-28 12:06 | Inpatient (IN) | payer MEDICARE, BC ==
[~2022-11-28] VITALS: Ht 175.3 cm; Wt 94.8 kg
[~2022-11-28 12:06] MED LIST changes: +ENAL1TAB42 PO; -ENAL2.5T7 PO; +FURO1TAB31 PO; -LATA0.0019 EACHEYE; +LATA0.008 EACHEYE; +LEVO500T31 PO; +SACU1TAB4 PO
[2022-11-28 12:49] LABS: Basophils # (auto) 0.1 10 ^3/uL (0-0.2); Basophils % (auto) 0.5 % (0.0-2.0); Eosinophils # (auto) 0 10 ^3/uL (0-0.8); Eosinophils % (auto) 0.1 % (0.0-7.0); Hematocrit 45.3 % (41.0-53.0); Hemoglobin 15.1 g/dL (13.5-17.5); Lymphocytes # (auto) 1.1 10 ^3/uL (0.4-5.4); Mean Corpuscular Hemoglobin 29.6 pg (28.0-32.0); Mean Corpuscular Hgb Conc. 33.2 g/dL (32.0-36.0); Neutrophils # (auto) 15.1 10 ^3/uL (1.6-8.6); Neutrophils % (auto) 82.4 % (37.0-80.0); Red Blood Cells 5.09 10^6/uL (4.5-5.90); Red Cell Distribution Width 16.3 % (11.8-14.3); White Blood Cell 18.3 10^3/uL (4.4-10.8)
[2022-11-28 13:05] LABS: INR 1.14 (0.9-1.15); Partial Thromboplastin Time 26.2 sec (24.6-33.4)
[2022-11-28 13:11] LABS: Albumin 3.6 g/dL (3.4-5.0); BUN/Creatinine Ratio 11.7 (10.0-20.0); Calcium 9.1 mg/dL (8.5-10.1); Potassium 4.1 mmol/L (3.5-5.1)
[2022-11-28 13:35] LABS: Bilirubin, Total 1.5 mg/dL (0.2-1.0); Total Protein 6.9 g/dL (6.4-8.2)
[2022-11-28] MEDS ORDERED: FUROSEMIDE 40 MG/4 ML VIAL IV ONE (14:30)
[2022-11-28] MEDS ORDERED: ACETAMINOPHEN 325 MG TAB PO PRN (15:00)
[2022-11-28] MEDS ORDERED: DEXTROSE (50%) 50ML SYRG IV PRN (15:15)
[2022-11-28 16:47] LABS: Urine Bacteria FEW /hpf (None Seen); Urine Blood TRACE /uL (Negative); Urine Specific Gravity 1.014 (1.001-1.035); Urine WBC 576 /hpf (0 - 3); Urine WBC Clumps PRESENT /hpf (None Seen)
[2022-11-28 17:12] LABS: Alcohol, Urine < 3.0 mg/dL (0-10); Amphetamine Screen, Urine NEGATIVE (NEGATIVE)
[2022-11-28 17:15] LABS: Barbiturate Scree,Urine NEGATIVE (NEGATIVE); Benzodiazephine Screen, Urine NEGATIVE (NEGATIVE); Cannabinoid Screen, Urine NEGATIVE (NEGATIVE); Cocaine Screen, Urine NEGATIVE (NEGATIVE); Opiate Scree,Urine NEGATIVE (NEGATIVE); Phencyclidine Screen, Urine NEGATIVE (NEGATIVE)
[2022-11-28] MEDS: TAMSULOSIN HYDROCHLORIDE 0.4 MG CAP PO SCH (18:11)
[2022-11-28] MEDS: ACCU-CHEK COMFORT CURVE STRIP VI SCH ×2 (18:11→22:30)
[2022-11-28] MEDS: InsuLIN REG 1unit/0.01ml Soln (100units/ml) SC SCH ×2 (18:12→22:34)
[2022-11-28] MEDS: cefTRIAXone 1GM/50ML D5W 50 ML IV SCH (18:31)
[2022-11-28] MEDS ORDERED: SACUBITRIL VALSARTAN PO SCH (22:00)
[2022-11-28] MEDS: CARVEDILOL 3.125 MG TAB PO SCH (22:36)
[2022-11-28] MEDS: TICAGRELOR 90 MG TAB PO SCH (22:36)
[2022-11-29 05:41] LABS: Basophils # (auto) 0.1 10 ^3/uL (0-0.2); Basophils % (auto) 0.5 % (0.0-2.0); Eosinophils # (auto) 0 10 ^3/uL (0-0.8); Hematocrit 46.3 % (41.0-53.0); Hemoglobin 15.4 g/dL (13.5-17.5); Lymphocytes # (auto) 0.9 10 ^3/uL (0.4-5.4); Lymphocytes % (auto) 4.4 % (10.0-50.0); Mean Corpuscular Hemoglobin 29.8 pg (28.0-32.0); Mean Corpuscular Hgb Conc. 33.3 g/dL (32.0-36.0); Mean Corpuscular Volume 89.5 fL (80.0-100.0); Monocytes % (auto) 9.7 % (0.0-12.0); Neutrophils # (auto) 17.4 10 ^3/uL (1.6-8.6); Neutrophils % (auto) 85.4 % (37.0-80.0); Red Blood Cells 5.18 10^6/uL (4.5-5.90); Red Cell Distribution Width 15.8 % (11.8-14.3); White Blood Cell 20.4 10^3/uL (4.4-10.8)
[2022-11-29 05:57] LABS: Calcium 8.7 mg/dL (8.5-10.1); Potassium 3.7 mmol/L (3.5-5.1)
[2022-11-29 06:03] LABS: Albumin 3.1 g/dL (3.4-5.0); BUN/Creatinine Ratio 14.4 (10.0-20.0); Bilirubin, Total 1.9 mg/dL (0.2-1.0); Total Protein 7.2 g/dL (6.4-8.2)
[2022-11-29] MEDS: ACCU-CHEK COMFORT CURVE STRIP VI SCH ×4 (06:48→22:00)
[2022-11-29] MEDS: InsuLIN REG 1unit/0.01ml Soln (100units/ml) SC SCH ×4 (06:53→22:31)
[2022-11-29] MEDS: cefTRIAXone 1GM/50ML D5W 50 ML IV SCH (09:15)
[2022-11-29] MEDS ORDERED: PANTOPRAZOLE 40 MG TAB PO SCH (10:00)
[2022-11-29] MEDS ORDERED: ENOXAPARIN SOD 40 MG/0.4 ML SYRINGE SC SCH (10:00)
[2022-11-29] MEDS: FINASTERIDE 5 MG TAB PO SCH (11:52)
[2022-11-29] MEDS: CARVEDILOL 3.125 MG TAB PO SCH ×2 (11:52→22:29)
[2022-11-29] MEDS: ASPirin-EC 81 mg tab PO SCH (11:53)
[2022-11-29] MEDS: ALLOPURINOL 300 MG TAB PO SCH (11:53)
[2022-11-29] MEDS: TICAGRELOR 90 MG TAB PO SCH ×2 (11:53→22:28)
[2022-11-29] MEDS: ATORVASTATIN 20 MG TAB PO SCH (11:53)
[2022-11-29] MEDS: ENALAPRIL MALEATE 2.5 MG TAB PO SCH (11:53)
[2022-11-29 12:42] VITALS: BP 122/74
[2022-11-29 16:54] VITALS: BP 126/62
[2022-11-29] MEDS ORDERED: CEFEPIME 2 GM in SODIUM CHL 0.9% 50 ML IV SCH (17:00)
[2022-11-29] MEDS: TAMSULOSIN HYDROCHLORIDE 0.4 MG CAP PO SCH (17:05)
[2022-11-29] MEDS: CEFEPIME 2GM/50ML NS 50 ML IV SCH (17:08)
[2022-11-29 22:00] VITALS: BP 122/61
[2022-11-29] MEDS: SACUBITRIL VALSARTAN PO SCH (22:29)
[2022-11-29] MEDS: LATANOPROST 0.005 % OPTH(EYE) SOL 2.5ML EACHEYE SCH (22:30)
[2022-11-30] MEDS: CEFEPIME 2GM/50ML NS 50 ML IV SCH ×2 (04:51→17:16)
[2022-11-30 05:00] VITALS: BP 124/55
[2022-11-30] MEDS: ACCU-CHEK COMFORT CURVE STRIP VI SCH ×4 (06:13→21:53)
[2022-11-30] MEDS: InsuLIN REG 1unit/0.01ml Soln (100units/ml) SC SCH ×4 (06:46→21:56)
[2022-11-30 07:13] LABS: Basophils # (auto) 0 10 ^3/uL (0-0.2); Basophils % (auto) 0.1 % (0.0-2.0); Eosinophils # (auto) 0 10 ^3/uL (0-0.8); Eosinophils % (auto) 0.2 % (0.0-7.0); Hematocrit 41.5 % (41.0-53.0); Hemoglobin 13.7 g/dL (13.5-17.5); Lymphocytes # (auto) 1.4 10 ^3/uL (0.4-5.4); Lymphocytes % (auto) 7.2 % (10.0-50.0); Mean Corpuscular Hemoglobin 30.3 pg (28.0-32.0); Mean Corpuscular Hgb Conc. 33.1 g/dL (32.0-36.0); Mean Corpuscular Volume 91.5 fL (80.0-100.0); Monocytes % (auto) 10.7 % (0.0-12.0); Neutrophils # (auto) 15.4 10 ^3/uL (1.6-8.6); Neutrophils % (auto) 81.8 % (37.0-80.0); Nucleated Red Blood Cells % 0.1 %; Red Blood Cells 4.54 10^6/uL (4.5-5.90); White Blood Cell 18.8 10^3/uL (4.4-10.8)
[2022-11-30 07:23] LABS: BUN/Creatinine Ratio 26.2 (10.0-20.0); Calcium 8.4 mg/dL (8.5-10.1); Magnesium 2.5 mg/dL (1.6-2.6)
[2022-11-30] MEDS ORDERED: FINA5TAB4 PO (08:24)
[2022-11-30] MEDS ORDERED: GLIP10TA21 PO (08:24)
[2022-11-30] MEDS ORDERED: CARV6.2551 PO (08:24)
[2022-11-30] MEDS ORDERED: TICA90TA PO (08:27)
[2022-11-30] MEDS ORDERED: AMLO1TAB22 PO (08:27)
[2022-11-30] MEDS ORDERED: FLUT1AER3 IN (08:27)
[2022-11-30] MEDS ORDERED: LEVO100T8 PO (08:27)
[2022-11-30 09:00] VITALS: BP 124/58
[2022-11-30] MEDS: ALLOPURINOL 300 MG TAB PO SCH (09:26)
[2022-11-30] MEDS: TICAGRELOR 90 MG TAB PO SCH ×2 (09:26→22:00)
[2022-11-30] MEDS: ASPirin-EC 81 mg tab PO SCH (09:26)
[2022-11-30] MEDS: ATORVASTATIN 20 MG TAB PO SCH (09:27)
[2022-11-30] MEDS: CARVEDILOL 3.125 MG TAB PO SCH ×2 (09:27→21:58)
[2022-11-30] MEDS: ENALAPRIL MALEATE 2.5 MG TAB PO SCH (09:28)
[2022-11-30] MEDS: SACUBITRIL VALSARTAN PO SCH (09:29)
[2022-11-30] MEDS: FINASTERIDE 5 MG TAB PO SCH (09:30)
[2022-11-30 13:00] VITALS: BP 116/53
[2022-11-30 17:00] VITALS: BP 97/48
[2022-11-30] MEDS: TAMSULOSIN HYDROCHLORIDE 0.4 MG CAP PO SCH (17:15)
[2022-11-30] MEDS ORDERED: D5W/SOD CHLO 0.9% 1,000 ML IV ONE (18:15)
[2022-11-30] MEDS: LATANOPROST 0.005 % OPTH(EYE) SOL 2.5ML EACHEYE SCH (21:58)
[2022-11-30 22:00] VITALS: BP 112/48
[2022-12-01 05:00] VITALS: BP 108/47
[2022-12-01 06:00] LABS: Basophils # (auto) 0 10 ^3/uL (0-0.2); Basophils % (auto) 0.2 % (0.0-2.0); Eosinophils # (auto) 0.3 10 ^3/uL (0-0.8); Eosinophils % (auto) 2.1 % (0.0-7.0); Hematocrit 38.1 % (41.0-53.0); Hemoglobin 12.8 g/dL (13.5-17.5); Lymphocytes # (auto) 0.9 10 ^3/uL (0.4-5.4); Lymphocytes % (auto) 5.9 % (10.0-50.0); Mean Corpuscular Hemoglobin 29.8 pg (28.0-32.0); Mean Corpuscular Hgb Conc. 33.5 g/dL (32.0-36.0); Mean Corpuscular Volume 89.1 fL (80.0-100.0); Monocytes # (auto) 1.3 10 ^3/uL (0-1.3); Neutrophils % (auto) 82.8 % (37.0-80.0); Red Blood Cells 4.28 10^6/uL (4.5-5.90); Red Cell Distribution Width 15.7 % (11.8-14.3); White Blood Cell 14.5 10^3/uL (4.4-10.8)
[2022-12-01 06:16] LABS: BUN/Creatinine Ratio 33.7 (10.0-20.0); Calcium 8.4 mg/dL (8.5-10.1); Potassium 3.4 mmol/L (3.5-5.1)
[2022-12-01] MEDS: ACCU-CHEK COMFORT CURVE STRIP VI SCH ×4 (06:45→22:00)
[2022-12-01] MEDS: InsuLIN REG 1unit/0.01ml Soln (100units/ml) SC SCH ×4 (07:12→22:35)
[2022-12-01] MEDS ORDERED: FUROSEMIDE 20 MG/2 ML VIAL IV ONE (09:15)
[2022-12-01] MEDS ORDERED: POTASSIUM CHL 20 Meq TABLET PO ONE (09:15)
[2022-12-01] MEDS: TICAGRELOR 90 MG TAB PO SCH ×2 (09:31→22:34)
[2022-12-01] MEDS: ASPirin-EC 81 mg tab PO SCH (09:31)
[2022-12-01] MEDS: FINASTERIDE 5 MG TAB PO SCH (09:31)
[2022-12-01] MEDS: CARVEDILOL 3.125 MG TAB PO SCH ×2 (09:32→22:34)
[2022-12-01] MEDS: ALLOPURINOL 300 MG TAB PO SCH (09:32)
[2022-12-01] MEDS: ATORVASTATIN 20 MG TAB PO SCH (09:32)
[2022-12-01 10:28] VITALS: BP 108/56
[2022-12-01 11:09] LABS: Urine Bacteria FEW /hpf (None Seen); Urine Blood TRACE /uL (Negative); Urine WBC 606 /hpf (0 - 3)
[2022-12-01] MEDS: ERTAPENEM SOD 1 GM INJ VIAL IM SCH (11:14)
[2022-12-01] MEDS: ERTAPENEM SOD INJ 1 GM in SODIUM CHL 0.9% 50 ML IV SCH (11:15)
[2022-12-01 11:58] LABS: Protein, Urine 47.6 mg/dL (0.0-11.9)
[2022-12-01 13:00] VITALS: BP 111/53
[2022-12-01 17:11] VITALS: BP 117/63
[2022-12-01] MEDS: TAMSULOSIN HYDROCHLORIDE 0.4 MG CAP PO SCH (17:29)
[2022-12-01] MEDS: FUROSEMIDE 20 MG/2 ML VIAL IV SCH (17:29)
[2022-12-01 22:00] VITALS: BP 116/54
[2022-12-01] MEDS: LATANOPROST 0.005 % OPTH(EYE) SOL 2.5ML EACHEYE SCH (22:34)
[2022-12-02 05:00] VITALS: BP 130/64
[2022-12-02] MEDS: FUROSEMIDE 20 MG/2 ML VIAL IV SCH ×2 (05:59→17:28)
[2022-12-02] MEDS: ACCU-CHEK COMFORT CURVE STRIP VI SCH ×4 (05:59→21:46)
[2022-12-02 06:25] LABS: Basophils # (auto) 0 10 ^3/uL (0-0.2); Basophils % (auto) 0.2 % (0.0-2.0); Eosinophils # (auto) 0.3 10 ^3/uL (0-0.8); Eosinophils % (auto) 2.2 % (0.0-7.0); Hematocrit 38.7 % (41.0-53.0); Hemoglobin 12.8 g/dL (13.5-17.5); Lymphocytes # (auto) 0.8 10 ^3/uL (0.4-5.4); Lymphocytes % (auto) 5.9 % (10.0-50.0); Mean Corpuscular Hemoglobin 29.8 pg (28.0-32.0); Mean Corpuscular Volume 90.3 fL (80.0-100.0); Monocytes # (auto) 1.5 10 ^3/uL (0-1.3); Neutrophils % (auto) 80.7 % (37.0-80.0); Red Blood Cells 4.28 10^6/uL (4.5-5.90); Red Cell Distribution Width 15.6 % (11.8-14.3); White Blood Cell 13.6 10^3/uL (4.4-10.8)
[2022-12-02 06:34] LABS: BUN/Creatinine Ratio 34.3 (10.0-20.0); Calcium 7.6 mg/dL (8.5-10.1); Phosphorus 2.4 mg/dL (2.5-4.90)
[2022-12-02] MEDS: InsuLIN REG 1unit/0.01ml Soln (100units/ml) SC SCH ×4 (06:44→21:47)
[2022-12-02] MEDS: ERTAPENEM SOD 1 GM INJ VIAL IM SCH (09:02)
[2022-12-02] MEDS: TICAGRELOR 90 MG TAB PO SCH ×2 (09:05→21:46)
[2022-12-02] MEDS: ALLOPURINOL 300 MG TAB PO SCH (09:05)
[2022-12-02] MEDS: ASPirin-EC 81 mg tab PO SCH (09:05)
[2022-12-02] MEDS: ATORVASTATIN 20 MG TAB PO SCH (09:05)
[2022-12-02] MEDS: FINASTERIDE 5 MG TAB PO SCH (09:05)
[2022-12-02] MEDS: CARVEDILOL 3.125 MG TAB PO SCH ×2 (09:06→21:46)
[2022-12-02] MEDS: ERTAPENEM SOD INJ 1 GM in SODIUM CHL 0.9% 50 ML IV SCH (09:06)
[2022-12-02 09:10] VITALS: BP 119/55
[2022-12-02] MEDS ORDERED: POTASSIUM PHOSPHATE 22 MEQ in SODIUM CHL 0.9% 100 ML IV ONE (10:30)
[2022-12-02 13:00] VITALS: BP 131/53
[2022-12-02 17:00] VITALS: BP 153/67
[2022-12-02] MEDS: TAMSULOSIN HYDROCHLORIDE 0.4 MG CAP PO SCH (17:28)
[2022-12-02] MEDS: LATANOPROST 0.005 % OPTH(EYE) SOL 2.5ML EACHEYE SCH (21:46)
[2022-12-02 22:00] VITALS: BP 143/67
[2022-12-03 05:00] VITALS: BP 132/54
[2022-12-03] MEDS: FUROSEMIDE 20 MG/2 ML VIAL IV SCH (06:13)
[2022-12-03] MEDS: InsuLIN REG 1unit/0.01ml Soln (100units/ml) SC SCH ×2 (06:21→12:18)
[2022-12-03] MEDS: ACCU-CHEK COMFORT CURVE STRIP VI SCH ×2 (06:22→12:10)
[2022-12-03 08:00] VITALS: BP 127/60
[2022-12-03 09:00] VITALS: BP 127/60
[2022-12-03] MEDS: ATORVASTATIN 20 MG TAB PO SCH (09:32)
[2022-12-03] MEDS: ERTAPENEM SOD INJ 1 GM in SODIUM CHL 0.9% 50 ML IV SCH (09:33)
[2022-12-03] MEDS: ASPirin-EC 81 mg tab PO SCH (09:33)
[2022-12-03] MEDS: ALLOPURINOL 300 MG TAB PO SCH (09:33)
[2022-12-03] MEDS: FINASTERIDE 5 MG TAB PO SCH (09:33)
[2022-12-03] MEDS: TICAGRELOR 90 MG TAB PO SCH (09:33)
[2022-12-03] MEDS: CARVEDILOL 3.125 MG TAB PO SCH (09:35)
[2022-12-03 12:34] VITALS: BP 125/55
[2022-12-03 16:16] VITALS: BP 125/55
== END 2022-12-03 17:10 | disposition home health service (06) | DRG 871 ==
LOC: ER 12:06 → EDBD 12:06 → OVERFLOW 14:55 → WEST WING 11-29 10:16
PROVIDERS: ADMIT Nurse Practitioner Family; ATTEND Internal Medicine
PROC: 05HF33Z Insertion of Infusion Device into Left Cephalic Vein, Percutaneous Approach (ICD-10-PCS; principal; 2022-12-01)
PROC: B54NZZA Ultrasonography of Left Upper Extremity Veins, Guidance (ICD-10-PCS; 2022-12-01)
DX: A41.51 Sepsis due to Escherichia coli [E. coli] (principal); G93.41 Metabolic encephalopathy; N17.0 Acute kidney failure with tubular necrosis; E44.0 Moderate protein-calorie malnutrition; N39.0 Urinary tract infection, site not specified; J96.10 Chronic respiratory failure, unspecified whether with hypoxia or hypercapnia; I13.0 Hypertensive heart and chronic kidney disease with heart failure and stage 1 through stage 4 chronic kidney disease, or unspecified chronic kidney disease; Z16.12 Extended spectrum beta lactamase (ESBL) resistance; I50.22 Chronic systolic (congestive) heart failure; E11.65 Type 2 diabetes mellitus with hyperglycemia; E11.22 Type 2 diabetes mellitus with diabetic chronic kidney disease; B96.20 Unspecified Escherichia coli [E. coli] as the cause of diseases classified elsewhere; I25.10 Atherosclerotic heart disease of native coronary artery without angina pectoris; J44.9 Chronic obstructive pulmonary disease, unspecified; N18.32 Chronic kidney disease, stage 3b; Z95.1 Presence of aortocoronary bypass graft; Z98.61 Coronary angioplasty status; I25.2 Old myocardial infarction; Z68.30 Body mass index [BMI] 30.0-30.9, adult
CPT/HCPCS: 36415; 70450; 71045; 80048; 80053; 80307; 81001; 82140; 82570; 82607; 82962; 83036; 83605; 83735; 83880; 83935; 84100; 84156; 84300; 84443; 84484; 85025; 85610; 85730; 87086; 87088; 87186; 93005; 97110; 97116; 97163; 99291; G0378; J0692; J0696; J1335; J1815; J7042

== ENCOUNTER 2023-10-23 01:21 | Inpatient (IN) | payer MEDICARE, BC ==
[~2023-10-23] VITALS: Ht 177.8 cm; Wt 107.5 kg
[2023-10-23] VITALS (12 sets, daily range): BP systolic 107–143; BP diastolic 51–85; PULSE 71–89; RESP 17–24; TEMP 97.4–97.8; O2SAT 92–98
[~2023-10-23 01:21] MED LIST changes: +AMLO1TAB22 PO; -CARV25TA PO; +CARV6.2551 PO; +FLUT1AER3 IN; -FURO1TAB33 PO; +GLIP10TA21 PO; +LEVO100T8 PO; -LEVO500T31 PO
[2023-10-23 02:20] LABS: Basophils # (auto) 0 10 ^3/uL (0-0.2); Basophils % (auto) 0.3 % (0.0-2.0); Eosinophils # (auto) 0.2 10 ^3/uL (0-0.8); Eosinophils % (auto) 1.5 % (0.0-7.0); Hematocrit 44.7 % (41.0-53.0); Hemoglobin 14.7 g/dL (13.5-17.5); Lymphocytes # (auto) 0.6 10 ^3/uL (0.4-5.4); Lymphocytes % (auto) 5.7 % (10.0-50.0); Mean Corpuscular Hemoglobin 30.4 pg (28.0-32.0); Mean Corpuscular Hgb Conc. 32.8 g/dL (32.0-36.0); Mean Corpuscular Volume 92.9 fL (80.0-100.0); Monocytes # (auto) 0.6 10 ^3/uL (0-1.3); Monocytes % (auto) 5.8 % (0.0-12.0); Neutrophils # (auto) 8.8 10 ^3/uL (1.6-8.6); Neutrophils % (auto) 86.7 % (37.0-80.0); Red Blood Cells 4.81 10^6/uL (4.5-5.90); Red Cell Distribution Width 17.3 % (11.8-14.3); White Blood Cell 10.1 10^3/uL (4.4-10.8)
[2023-10-23 02:27] LABS: Chloride 104 mmol/L (98-107); Potassium 4.5 mmol/L (3.5-5.1); Sodium 139 mmol/L (136-145)
[2023-10-23 02:28] LABS: Anion Gap 10 (5-15); Calcium 9.8 mg/dL (8.5-10.1); Carbon Dioxide 25 mmol/L (20-30)
[2023-10-23 02:33] LABS: BUN/Creatinine Ratio 16.1 (10.0-20.0); Blood Urea Nitrogen 28 mg/dL (9-23); Glucose 136 mg/dL (74-106)
[2023-10-23] MEDS ORDERED: DEXTROSE (50%) 50ML SYRG IV PRN (05:15)
[2023-10-23] MEDS ORDERED: ONDANSETRON HCL 4 MG/2 ML VIAL IV PRN (05:15)
[2023-10-23] MEDS ORDERED: ACETAMINOPHEN 325 MG TAB PO PRN (05:15)
[2023-10-23] MEDS: LEVOTHYROXINE SODIUM 100 MCG TAB PO SCH (07:07)
[2023-10-23] MEDS: InsuLIN REG 1unit/0.01ml Soln (100units/ml) SC SCH (08:00)
[2023-10-23] MEDS: ACCU-CHEK COMFORT CURVE STRIP VI SCH (08:11)
[2023-10-23] MEDS: IPRATROPIUM BROM 0.5 MG/2.5ML INH SOL NEB ONE (10:00)
[2023-10-23] MEDS: BUDESONIDE (INHALATION) 0.5 MG/2 ML NEB NEB ONE (10:00)
[2023-10-23] MEDS ORDERED: FUROSEMIDE 40 MG TAB PO SCH (10:00)
[2023-10-23] MEDS: TICAGRELOR 90 MG TAB PO SCH (10:18)
[2023-10-23] MEDS: amLODIPine BESYLATE 5 MG TAB PO SCH (10:18)
[2023-10-23] MEDS: CARVEDILOL 3.125 MG TAB PO SCH (10:18)
[2023-10-23] MEDS: methylPREDNISolone SOD SUCC 40 MG/ML VL IV SCH (10:28)
[2023-10-23] MEDS: ASPirin 81 mg TAB PO SCH (10:28)
[2023-10-23] MEDS: cefTRIAXone 1GM/50ML D5W 50 ML IV ONE (10:29)
[2023-10-23] MEDS: FUROSEMIDE 20 MG/2 ML VIAL IV ONE (10:29)
[2023-10-23 10:30] LABS: Base Excess -2.1 mmol/L (-2.0-2.0)
[2023-10-23 10:42] LABS: Urine Bacteria FEW /hpf (None Seen); Urine Blood Negative /uL (Negative); Urine Budding Yeast FEW /hpf (None Seen); Urine Color Yellow (Yellow); Urine Protein, UAD 1+ (Negative); Urine Specific Gravity 1.023 (1.001-1.035); Urine Urobilinogen Normal (Negative); Urine WBC 103 /hpf (0 - 3); Urine pH 5.5 (5.0-9.0)
[2023-10-23 10:45] LABS: Urine Clarity CLOUDY (Clear)
[2023-10-23 10:47] LABS: Amphetamine Screen, Urine Neg (NEGATIVE); Barbiturate Scree,Urine Neg (NEGATIVE); Benzodiazephine Screen, Urine Neg (NEGATIVE); Cocaine Screen, Urine Neg (NEGATIVE); Opiate Scree,Urine Neg (NEGATIVE); Phencyclidine Screen, Urine Neg (NEGATIVE)
[2023-10-23 10:48] LABS: Cannabinoid Screen, Urine Neg (NEGATIVE)
[2023-10-23 10:52] LABS: Phosphorus 4.3 mg/dL (2.4-5.1)
[2023-10-23 11:02] LABS: INR 1.05 (0.9-1.15); Prothrombin Time 11.1 sec (9.3-11.8)
[2023-10-23] MEDS: LEVALBUTEROL HCL 1.25 MG/3 ML NEB ONE (11:15)
[2023-10-23] MEDS: BUDESONIDE (INHALATION) 0.5 MG/2 ML NEB ONE (11:15)
[2023-10-23] MEDS: IPRATROPIUM BROM 0.5 MG/2.5ML INH SOL ONE (11:16)
[2023-10-23] MEDS: AZITHROMYCIN 500MG/ 250ML 250 ML IV SCH (11:24)
[2023-10-23] MEDS: LACTULOSE 20Gm/30ML SOLN PO ONE (11:31)
[2023-10-23] MEDS: IPRATROPIUM BROM 0.5 MG/2.5ML INH SOL NEB SCH (11:54)
[2023-10-23] MEDS: LEVALBUTEROL HCL 1.25 MG/3 ML NEB NEB SCH (11:54)
[2023-10-23] MEDS: BUDESONIDE (INHALATION) 0.5 MG/2 ML NEB NEB SCH (11:54)
[2023-10-23 12:53] LABS: Magnesium 2.3 mg/dL (1.6-2.6)
[2023-10-23] MEDS: PANTOPRAZOLE 40 MG/10 ML VIAL INJ IV ONE (16:20)
[2023-10-23] MEDS: ENOXAPARIN SOD 40 MG/0.4 ML SYRINGE SC ONE (16:20)
[2023-10-23] MEDS: ERGOCALCIFEROL 50,000 UNIT(1.25MG) CAP PO SCH (16:20)
[2023-10-23 16:50] LABS: COVID19 ANTIGEN SOFIA FIA NEGATIVE (NEGATIVE)
[2023-10-23 16:51] LABS: Rapid Influenza A Negative (Negative); Rapid Influenza B Negative (Negative)
[2023-10-23] MEDS: FUROSEMIDE 20 MG/2 ML VIAL IV SCH (20:36)
[2023-10-23] MEDS: ATORVASTATIN 20 MG TAB PO SCH (21:07)
[2023-10-23] MEDS: LACTULOSE 20Gm/30ML SOLN PO SCH (21:08)
[2023-10-24] VITALS (15 sets, daily range): BP systolic 129–158; BP diastolic 63–87; PULSE 65–91; RESP 17–22; TEMP 97.5–98.7; O2SAT 93–100
[2023-10-24 06:53] LABS: Alanine Aminotransferase 34 U/L (7-40); Albumin 4.4 g/dL (3.2-4.8); Alkaline Phosphatase 100 U/L (46-116); Anion Gap 7 (5-15); Aspartate Aminotransferase 32 U/L (13-40); BUN/Creatinine Ratio 20.2 (10.0-20.0); Bilirubin, Total 0.6 mg/dL (0.2-1.0); Blood Urea Nitrogen 26 mg/dL (9-23); Calcium 10.3 mg/dL (8.5-10.1); Carbon Dioxide 27 mmol/L (20-30); Chloride 104 mmol/L (98-107); Glucose 169 mg/dL (74-106); Potassium 4.8 mmol/L (3.5-5.1); Sodium 138 mmol/L (136-145); Total Protein 7.2 g/dL (5.7-8.2)
[2023-10-24 06:59] LABS: Hematocrit 44.6 % (41.0-53.0); Hemoglobin 14.3 g/dL (13.5-17.5); Mean Corpuscular Hemoglobin 29.8 pg (28.0-32.0); Mean Corpuscular Hgb Conc. 32.1 g/dL (32.0-36.0); Mean Corpuscular Volume 92.8 fL (80.0-100.0); Red Cell Distribution Width 17.4 % (11.8-14.3); White Blood Cell 7.9 10^3/uL (4.4-10.8)
[2023-10-24 07:12] LABS: Basophils % (manual) 0 (0.0-2.0); Blast Cells 0; Eosinophils % (manual) 0 (0-7); Metamyelocytes % 0; Myelocytes % 0; Promyelocytes % 0; Reactive Lymphocytes 0
[2023-10-24] MEDS: cefTRIAXone 1GM/50ML D5W 50 ML IV SCH (09:10)
[2023-10-24] MEDS ORDERED: VANCOMYCIN PER PHARMACY 0 MG IV SCH (09:30)
[2023-10-24 09:38] LABS: Band Neutrophils % (manual) 6; Lymphocytes % (manual) 4 (10.0-50.0); Monocytes % (manual) 2 (0-12); Platelet Estimate Adequate
[2023-10-24] MEDS: PANTOPRAZOLE 40 MG/10 ML VIAL INJ IV SCH (11:06)
[2023-10-24] MEDS: ENOXAPARIN SOD 40 MG/0.4 ML SYRINGE SC SCH (11:07)
[2023-10-24] MEDS: VANCOMYCIN 1GM/200ML 200 ML IV ONE (13:58)
[2023-10-24] MEDS ORDERED: FLUT1AER17 INH (15:15)
[2023-10-24] MEDS ORDERED: PIO30T PO (15:18)
[2023-10-24] MEDS: FLUCONAZOLE 200MG/100ML 100 ML IV ONE (17:07)
[2023-10-24] MEDS: CYANOCOBALAMIN (B-12) 1000 MCG/1 ML VIAL IM ONE (17:09)
[2023-10-25] VITALS (10 sets, daily range): BP systolic 134–160; BP diastolic 69–80; PULSE 67–84; RESP 18–21; TEMP 36.3; O2SAT 91–100
[2023-10-25 05:32] LABS: Chloride 104 mmol/L (98-107); Potassium 4.6 mmol/L (3.5-5.1); Sodium 138 mmol/L (136-145)
[2023-10-25 05:33] LABS: Anion Gap 4 (5-15); Calcium 10.4 mg/dL (8.5-10.1); Carbon Dioxide 30 mmol/L (20-30)
[2023-10-25 05:38] LABS: Blood Urea Nitrogen 25 mg/dL (9-23); Glucose 143 mg/dL (74-106)
[2023-10-25 05:39] LABS: Basophils # (auto) 0.1 10 ^3/uL (0-0.2); Basophils % (auto) 0.6 % (0.0-2.0); Eosinophils # (auto) 0 10 ^3/uL (0-0.8); Eosinophils % (auto) 0.1 % (0.0-7.0); Hematocrit 43.7 % (41.0-53.0); Hemoglobin 14.3 g/dL (13.5-17.5); Lymphocytes # (auto) 0.6 10 ^3/uL (0.4-5.4); Lymphocytes % (auto) 6.6 % (10.0-50.0); Mean Corpuscular Hemoglobin 30.3 pg (28.0-32.0); Mean Corpuscular Hgb Conc. 32.6 g/dL (32.0-36.0); Mean Corpuscular Volume 92.9 fL (80.0-100.0); Monocytes # (auto) 0.8 10 ^3/uL (0-1.3); Neutrophils # (auto) 8.4 10 ^3/uL (1.6-8.6); Neutrophils % (auto) 84.7 % (37.0-80.0); Nucleated Red Blood Cells % 0.1 %; White Blood Cell 9.9 10^3/uL (4.4-10.8)
[2023-10-25] MEDS ORDERED: FLUCONAZOLE 200MG/100ML 100 ML IV SCH (10:00)
[2023-10-25] MEDS: CYANOCOBALAMIN 500 MCG TAB PO SCH (12:32)
[2023-10-25] MEDS: FLUCONAZOLE 100 MG TAB PO SCH (12:32)
[2023-10-26 09:06] LABS: Hepatitis B Surface Antigen Negative (Negative)
[2023-10-26 09:28] LABS: Hepatitis C Antibody Negative (Negative)
== END 2023-10-25 14:54 | disposition home or self-care (01) | DRG 637 ==
LOC: EDBD 01:21 → ER 01:21 → OVERFLOW 05:21 → CENTRAL 16:20
PROVIDERS: ADMIT Internal Medicine; ATTEND Internal Medicine
DX: E11.649 Type 2 diabetes mellitus with hypoglycemia without coma (principal); G93.41 Metabolic encephalopathy; I50.23 Acute on chronic systolic (congestive) heart failure; J96.20 Acute and chronic respiratory failure, unspecified whether with hypoxia or hypercapnia; B37.49 Other urogenital candidiasis; I13.0 Hypertensive heart and chronic kidney disease with heart failure and stage 1 through stage 4 chronic kidney disease, or unspecified chronic kidney disease; J44.1 Chronic obstructive pulmonary disease with (acute) exacerbation; Z20.822 Contact with and (suspected) exposure to COVID-19; N17.0 Acute kidney failure with tubular necrosis; E11.22 Type 2 diabetes mellitus with diabetic chronic kidney disease; E03.9 Hypothyroidism, unspecified; E53.8 Deficiency of other specified B group vitamins; E55.9 Vitamin D deficiency, unspecified; K21.9 Gastro-esophageal reflux disease without esophagitis; N40.0 Benign prostatic hyperplasia without lower urinary tract symptoms; N18.9 Chronic kidney disease, unspecified; I25.10 Atherosclerotic heart disease of native coronary artery without angina pectoris; I25.2 Old myocardial infarction; Z95.1 Presence of aortocoronary bypass graft
CPT/HCPCS: 36415; 36600; 70450; 71045; 71250; 80048; 80053; 80061; 80307; 81001; 82140; 82306; 82607; 82805; 82962; 83036; 83605; 83690; 83735; 83880; 84100; 84443; 84484; 85007; 85025; 85027; 85379; 85610; 85730; 86803; 87040; 87077; 87086; 87088; 87186; 87340; 87426; 87804; 93005; 93306; 94640; C9113; G0378; J1450; J1815

== ENCOUNTER 2023-12-04 09:56 | Inpatient (IN) | payer MEDICARE, BC ==
[~2023-12-04] VITALS: Ht 180.3 cm; Wt 95.3 kg
[~2023-12-04 09:56] MED LIST changes: +FLUT1AER17 INH; -FLUT1AER3 IN; -GLIP10TA21 PO; +PIO30T PO
[2023-12-04 10:00] VITALS: PULSE 67; RESP 24; O2SAT 96
[2023-12-04] MEDS: IPRATROPIUM BROM 0.5 MG/2.5ML INH SOL NEB ONE (10:15)
[2023-12-04] MEDS: ALBUTEROL SULF 2.5 MG/0.5ML(0.5%) NEB SOLN NEB ONE (10:15)
[2023-12-04 10:56] LABS: Basophils # (auto) 0 10 ^3/uL (0-0.2); Basophils % (auto) 0.2 % (0.0-2.0); Eosinophils # (auto) 0.1 10 ^3/uL (0-0.8); Eosinophils % (auto) 0.7 % (0.0-7.0); Hemoglobin 14.5 g/dL (13.5-17.5); Lymphocytes # (auto) 0.6 10 ^3/uL (0.4-5.4); Lymphocytes % (auto) 7.1 % (10.0-50.0); Mean Corpuscular Hemoglobin 31.3 pg (28.0-32.0); Mean Corpuscular Hgb Conc. 33.1 g/dL (32.0-36.0); Mean Corpuscular Volume 94.6 fL (80.0-100.0); Monocytes # (auto) 0.7 10 ^3/uL (0-1.3); Monocytes % (auto) 7.6 % (0.0-12.0); Neutrophils # (auto) 7.3 10 ^3/uL (1.6-8.6); Neutrophils % (auto) 84.4 % (37.0-80.0); Red Blood Cells 4.65 10^6/uL (4.5-5.90); Red Cell Distribution Width 17.5 % (11.8-14.3); White Blood Cell 8.6 10^3/uL (4.4-10.8)
[2023-12-04 11:30] LABS: Chloride 101 mmol/L (98-107); Potassium 3.4 mmol/L (3.5-5.1); Sodium 138 mmol/L (136-145)
[2023-12-04] MEDS: methylPREDNISolone SOD SUCC 125 MG/2 ML VL IV ONE (11:30)
[2023-12-04 11:31] LABS: Anion Gap 2 (5-15); Calcium 9.5 mg/dL (8.5-10.1); Carbon Dioxide 35 mmol/L (20-30)
[2023-12-04] MEDS: FUROSEMIDE 40 MG/4 ML VIAL IV ONE (11:31)
[2023-12-04 11:36] LABS: BUN/Creatinine Ratio 17.5 (10.0-20.0); Blood Urea Nitrogen 21 mg/dL (9-23); Glucose 191 mg/dL (74-106)
[2023-12-04] MEDS ORDERED: DEXTROSE (50%) 50ML SYRG IV PRN (14:15)
[2023-12-04] MEDS ORDERED: ONDANSETRON HCL 4 MG/2 ML VIAL IV PRN (14:15)
[2023-12-04] MEDS ORDERED: MORPHINE SULFATE INJ 2 MG/ml SYRG IV PRN ×2 (14:15)
[2023-12-04] MEDS ORDERED: HYDROcodone-ACET 5/325MG TAB PO PRN (14:15)
[2023-12-04] MEDS ORDERED: NITROGLYCERIN 0.4 MG SL TAB SL PRN (14:15)
[2023-12-04] MEDS: POTASSIUM EFFERVESENT TAB 25 MEQ PO ONE ×2 (14:15→16:09)
[2023-12-04] MEDS ORDERED: DOCUSATE SOD 100 MG CAP PO PRN (14:15)
[2023-12-04 15:35] VITALS: BP 117/59; PULSE 69; RESP 26; TEMP 96; O2SAT 96
[2023-12-04] MEDS: ACCU-CHEK COMFORT CURVE STRIP VI SCH (18:20)
[2023-12-04] MEDS: FUROSEMIDE 40 MG/4 ML VIAL IV SCH (18:21)
[2023-12-04] MEDS: InsuLIN REG 1unit/0.01ml Soln (100units/ml) SC SCH (18:25)
[2023-12-04 19:09] VITALS: O2SAT 93
[2023-12-04 20:15] VITALS: PULSE 74; RESP 20; O2SAT 90
[2023-12-04 21:19] LABS: Urine Bacteria FEW /hpf (None Seen); Urine Blood TRACE /uL (Negative); Urine Budding Yeast MODERATE /hpf (None Seen); Urine Clarity Turbid (Clear); Urine Color Light-Yellow (Yellow); Urine Hyaline Cast FEW /lpf (0 - 2); Urine Protein, UAD TRACE (Negative); Urine Specific Gravity 1.011 (1.001-1.035); Urine Urobilinogen Normal (Negative); Urine WBC 88 /hpf (0 - 3); Urine pH 5.5 (5.0-9.0)
[2023-12-04] MEDS: ATORVASTATIN 20 MG TAB PO SCH (23:38)
[2023-12-04] MEDS: SACUBITRIL-VALSARTAN 24mg/26mg TAB PO SCH (23:38)
[2023-12-04] MEDS: CARVEDILOL 3.125 MG TAB PO SCH (23:38)
[2023-12-04] MEDS: TICAGRELOR 90 MG TAB PO SCH (23:38)
[2023-12-05] VITALS (12 sets, daily range): BP systolic 133–149; BP diastolic 65–79; PULSE 68–75; RESP 17–22; TEMP 97.4–98.4; O2SAT 90–96
[2023-12-05 05:31] LABS: Basophils # (auto) 0 10 ^3/uL (0-0.2); Basophils % (auto) 0.2 % (0.0-2.0); Eosinophils # (auto) 0 10 ^3/uL (0-0.8); Hematocrit 45.8 % (41.0-53.0); Hemoglobin 15.1 g/dL (13.5-17.5); Lymphocytes # (auto) 0.3 10 ^3/uL (0.4-5.4); Lymphocytes % (auto) 3.7 % (10.0-50.0); Mean Corpuscular Hemoglobin 31.1 pg (28.0-32.0); Mean Corpuscular Hgb Conc. 32.9 g/dL (32.0-36.0); Mean Corpuscular Volume 94.6 fL (80.0-100.0); Monocytes # (auto) 0.2 10 ^3/uL (0-1.3); Neutrophils # (auto) 7.5 10 ^3/uL (1.6-8.6); Neutrophils % (auto) 93.1 % (37.0-80.0); Nucleated Red Blood Cells % 0.1 %; Red Blood Cells 4.85 10^6/uL (4.5-5.90); Red Cell Distribution Width 17.5 % (11.8-14.3)
[2023-12-05 05:42] LABS: Alanine Aminotransferase 40 U/L (7-40); Albumin 4.2 g/dL (3.2-4.8); Alkaline Phosphatase 101 U/L (46-116); Anion Gap 4 (5-15); Aspartate Aminotransferase 15 U/L (13-40); BUN/Creatinine Ratio 20.2 (10.0-20.0); Bilirubin, Total 0.8 mg/dL (0.2-1.0); Blood Urea Nitrogen 25 mg/dL (9-23); Carbon Dioxide 34 mmol/L (20-30); Chloride 101 mmol/L (98-107); Glucose 262 mg/dL (74-106); Potassium 3.8 mmol/L (3.5-5.1); Sodium 139 mmol/L (136-145); Total Protein 6.9 g/dL (5.7-8.2)
[2023-12-05 06:11] LABS: Triglycerides 59 mg/dL (< 150)
[2023-12-05 06:12] LABS: LDL Cholesterol 95 mg/dL (< 100)
[2023-12-05 06:13] LABS: Cholesterol 151 mg/dL (< 200); HDL Cholesterol 42 mg/dL (40-59)
[2023-12-05] MEDS: LEVOTHYROXINE SODIUM 100 MCG TAB PO SCH (06:33)
[2023-12-05] MEDS: PANTOPRAZOLE 40 MG TAB PO SCH (11:28)
[2023-12-05] MEDS: ASPirin 81 mg TAB PO SCH (11:28)
[2023-12-05] MEDS: POTASSIUM CHL 20 Meq TABLET PO ONE (11:29)
[2023-12-05] MEDS: SPIRONOLACTONE 25 MG TAB PO SCH (11:32)
[2023-12-05] MEDS ORDERED: LIDOCAINE 2% TOPICAL JELLY 5 ML URJT TOP ONE (17:15)
[2023-12-05 18:50] LABS: Urine Bacteria MOD /hpf (None Seen); Urine Blood TRACE /uL (Negative); Urine Budding Yeast MANY /hpf (None Seen); Urine Clarity Turbid (Clear); Urine Color Light-Yellow (Yellow); Urine Hyaline Cast MOD /lpf (0 - 2); Urine Protein, UAD Negative (Negative); Urine Specific Gravity 1.012 (1.001-1.035); Urine Urobilinogen Normal (Negative); Urine WBC 51 /hpf (0 - 3); Urine pH 5.5 (5.0-9.0)
[2023-12-05] MEDS: PANTOPRAZOLE 40 MG/10 ML VIAL INJ IV ONE (22:08)
[2023-12-05] MEDS: ENOXAPARIN SOD 40 MG/0.4 ML SYRINGE SC ONE (22:08)
[2023-12-06] VITALS (11 sets, daily range): BP systolic 139–168; BP diastolic 67–82; PULSE 63–79; RESP 18–22; TEMP 97–98.6; O2SAT 87–97
[2023-12-06] MEDS: cloNIDine HCL 0.1 MG TAB PO ONE (06:15)
[2023-12-06] MEDS: PANTOPRAZOLE 40 MG/10 ML VIAL INJ IV SCH (10:19)
[2023-12-06] MEDS ORDERED: PROPOFOL 10 MG/ML 20 ML IV ONE (15:31)
[2023-12-06] MEDS ORDERED: LIDOCAINE 2% (LOCAL ANESTH.) PF 5ml SDV ONE (15:32)
[2023-12-06] MEDS ORDERED: fentaNYL CITRATE 100 MCG/2 ML VL ONE (15:32)
[2023-12-06] MEDS ORDERED: ONDANSETRON HCL 4 MG/2 ML VIAL ONE (15:32)
[2023-12-06] MEDS ORDERED: MIDAZOLAM HCL 2MG/2ML 2ml VIAL (1mg/ml) ONE (15:32)
[2023-12-06] MEDS ORDERED: ENOXAPARIN SOD 40 MG/0.4 ML SYRINGE SC SCH (18:00)
[2023-12-07] VITALS (99 sets, daily range): BP systolic 113–155; BP diastolic 35–87; PULSE 60–90; RESP 14–26; TEMP 97.6–100.4; O2SAT 89–100
[2023-12-07 00:23] LABS: Base Excess 10.3 mmol/L (-2.0-2.0)
[2023-12-07 00:25] LABS: Base Excess 9.6 mmol/L (-2.0-2.0)
[2023-12-07 02:04] LABS: Base Excess 10.7 mmol/L (-2.0-2.0)
[2023-12-07] MEDS: ETOMIDATE (2MG/ML) 20ML VIAL IV ONE (03:07)
[2023-12-07] MEDS: SUCCINYLCHOLINE CHLORIDE 20 MG/ML 10ML VIAL IV ONE (03:08)
[2023-12-07] MEDS: MIDAZOLAM DRIP 50 mg/50mL 50 ML IV SCH (04:00)
[2023-12-07] MEDS: MIDAZOLAM DRIP 50 mg/50mL 50 ML IV ONE (04:12)
[2023-12-07 04:19] LABS: Basophils # (auto) 0 10 ^3/uL (0-0.2); Basophils % (auto) 0.1 % (0.0-2.0); Eosinophils # (auto) 0 10 ^3/uL (0-0.8); Eosinophils % (auto) 0.1 % (0.0-7.0); Lymphocytes # (auto) 0.4 10 ^3/uL (0.4-5.4); Lymphocytes % (auto) 3.4 % (10.0-50.0); Mean Corpuscular Hgb Conc. 32.7 g/dL (32.0-36.0); Mean Corpuscular Volume 94.7 fL (80.0-100.0); Monocytes % (auto) 9.6 % (0.0-12.0); Neutrophils # (auto) 9.1 10 ^3/uL (1.6-8.6); Neutrophils % (auto) 86.8 % (37.0-80.0); Nucleated Red Blood Cells % 0.1 %; Red Blood Cells 5.17 10^6/uL (4.5-5.90); Red Cell Distribution Width 17.6 % (11.8-14.3); White Blood Cell 10.5 10^3/uL (4.4-10.8)
[2023-12-07 04:30] LABS: Chloride 98 mmol/L (98-107); Potassium 5.2 mmol/L (3.5-5.1); Sodium 140 mmol/L (136-145)
[2023-12-07 04:32] LABS: Calcium 9.9 mg/dL (8.5-10.1)
[2023-12-07 04:36] LABS: BUN/Creatinine Ratio 18.6 (10.0-20.0); Blood Urea Nitrogen 21 mg/dL (9-23); Glucose 191 mg/dL (74-106)
[2023-12-07 04:44] LABS: Anion Gap 1.99999 (5-15); Carbon Dioxide > 40 mmol/L (20-30)
[2023-12-07] MEDS: IPRATROPIUM BROM 0.5 MG/2.5ML INH SOL NEB PRN (06:25)
[2023-12-07] MEDS: ALBUTEROL SULF 2.5 MG/0.5ML(0.5%) NEB SOLN NEB PRN (06:25)
[2023-12-07 08:35] LABS: Base Excess 14.9 mmol/L (-2.0-2.0)
[2023-12-07 10:10] LABS: Potassium 3.9 mmol/L (3.5-5.1)
[2023-12-07] MEDS: fentaNYL Drip 2500mCg/250mlNS 250 ML IV SCH (10:17)
[2023-12-07 10:33] LABS: INR 1.09 (0.9-1.15); Prothrombin Time 11.5 sec (9.3-11.8)
[2023-12-07] MEDS: LIDOCAINE 1% (LOCAL ANESTH.) PF 5ml SDV ID ONE (14:38)
[2023-12-07] MEDS ORDERED: DEXTROSE (50%) 50ML SYRG IV PRN (15:15)
[2023-12-07] MEDS: FLUCONAZOLE 200MG/100ML 100 ML IV ONE (15:44)
[2023-12-07] MEDS: levoFLOXacin 500MG 100 ML IV ONE (15:44)
[2023-12-07] MEDS: InsuLIN REG 1unit/0.01ml Soln (100units/ml) SC SCH (17:56)
[2023-12-07] MEDS: ACCU-CHEK COMFORT CURVE STRIP VI SCH (17:58)
[2023-12-07] MEDS: ALBUTEROL SULF 2.5 MG/0.5ML(0.5%) NEB SOLN NEB SCH (18:39)
[2023-12-07] MEDS: IPRATROPIUM BROM 0.5 MG/2.5ML INH SOL NEB SCH (18:39)
[2023-12-07] MEDS: CARVEDILOL 3.125 MG TAB PO SCH (21:55)
[2023-12-07] MEDS: SODIUM CHLOR 0.9% PF (SALINE LOCK) 10ML VIAL/SYR IV SCH (21:56)
[2023-12-07] MEDS: ACETAMINOPHEN 325 MG TAB PO PRN (22:12)
[2023-12-08] VITALS (113 sets, daily range): BP systolic 112–152; BP diastolic 35–103; PULSE 58–78; RESP 16–19; TEMP 97.5–99.3; O2SAT 94–100
[2023-12-08 04:48] LABS: Anion Gap 3 (5-15); Carbon Dioxide 39 mmol/L (20-30); Chloride 99 mmol/L (98-107); Potassium 3.2 mmol/L (3.5-5.1); Sodium 141 mmol/L (136-145)
[2023-12-08 04:49] LABS: Calcium 9.6 mg/dL (8.7-10.4)
[2023-12-08 04:54] LABS: BUN/Creatinine Ratio 20.9 (10.0-20.0); Blood Urea Nitrogen 19 mg/dL (9-23); Glucose 172 mg/dL (74-106)
[2023-12-08 04:55] LABS: Magnesium 1.9 mg/dL (1.6-2.6)
[2023-12-08 05:07] LABS: Basophils # (auto) 0 10 ^3/uL (0-0.2); Basophils % (auto) 0.2 % (0.0-2.0); Eosinophils # (auto) 0 10 ^3/uL (0-0.8); Eosinophils % (auto) 0.7 % (0.0-7.0); Hematocrit 42.3 % (41.0-53.0); Lymphocytes # (auto) 0.5 10 ^3/uL (0.4-5.4); Lymphocytes % (auto) 8.1 % (10.0-50.0); Mean Corpuscular Hemoglobin 30.9 pg (28.0-32.0); Mean Corpuscular Volume 93.6 fL (80.0-100.0); Monocytes # (auto) 0.8 10 ^3/uL (0-1.3); Monocytes % (auto) 12.3 % (0.0-12.0); Neutrophils # (auto) 5.1 10 ^3/uL (1.6-8.6); Neutrophils % (auto) 78.7 % (37.0-80.0); Nucleated Red Blood Cells % 0.1 %; Red Blood Cells 4.52 10^6/uL (4.5-5.90); Red Cell Distribution Width 17.1 % (11.8-14.3); White Blood Cell 6.5 10^3/uL (4.4-10.8)
[2023-12-08] MEDS: MAGNESIUM SULFATE 1GM/100ML 100 ML IV ONE (06:31)
[2023-12-08] MEDS: POTASSIUM CHL 20MEQ/100ML 100 ML IV ONE (06:35)
[2023-12-08] MEDS: CIPROFLOXACIN 400MG/200ML 200 ML IV ONE (09:23)
[2023-12-08] MEDS: ONDANSETRON HCL 4 MG/2 ML VIAL IV ONE (09:23)
[2023-12-08] MEDS: levoFLOXacin 500MG 100 ML IV SCH (09:50)
[2023-12-08] MEDS: FLUCONAZOLE 200MG/100ML 100 ML IV SCH (09:50)
[2023-12-08] MEDS: POTASSIUM CHL 20MEQ/100ML 100 ML IV SCH (11:18)
[2023-12-08] MEDS: acetaZOLAMIDE SODIUM 500 MG VL IV ONE (14:04)
[2023-12-08 19:56] LABS: Basophils # (auto) 0 10 ^3/uL (0-0.2); Basophils % (auto) 0.1 % (0.0-2.0); Eosinophils # (auto) 0.1 10 ^3/uL (0-0.8); Eosinophils % (auto) 1.5 % (0.0-7.0); Hematocrit 47.2 % (41.0-53.0); Hemoglobin 15.3 g/dL (13.5-17.5); Lymphocytes # (auto) 0.7 10 ^3/uL (0.4-5.4); Lymphocytes % (auto) 7.4 % (10.0-50.0); Mean Corpuscular Hemoglobin 30.7 pg (28.0-32.0); Mean Corpuscular Hgb Conc. 32.5 g/dL (32.0-36.0); Mean Corpuscular Volume 94.5 fL (80.0-100.0); Monocytes # (auto) 1.8 10 ^3/uL (0-1.3); Monocytes % (auto) 17.9 % (0.0-12.0); Neutrophils # (auto) 7.2 10 ^3/uL (1.6-8.6); Neutrophils % (auto) 73.1 % (37.0-80.0); Nucleated Red Blood Cells % 0.4 %; Red Blood Cells 4.99 10^6/uL (4.5-5.90); Red Cell Distribution Width 17.3 % (11.8-14.3); White Blood Cell 9.9 10^3/uL (4.4-10.8)
[2023-12-08 20:06] LABS: Chloride 102 mmol/L (98-107); Potassium 3.7 mmol/L (3.5-5.1); Sodium 139 mmol/L (136-145)
[2023-12-08 20:07] LABS: Anion Gap 4 (5-15); Carbon Dioxide 33 mmol/L (20-30)
[2023-12-08 20:08] LABS: Calcium 9.7 mg/dL (8.7-10.4)
[2023-12-08 20:12] LABS: BUN/Creatinine Ratio 17.4 (10.0-20.0); Blood Urea Nitrogen 16 mg/dL (9-23); Glucose 126 mg/dL (74-106)
[2023-12-08 20:13] LABS: Magnesium 2.2 mg/dL (1.6-2.6)
[2023-12-08] MEDS: Glucerna 1.2 Cal 1Liter BOTTLE GT SCH (21:08)
[2023-12-09] VITALS (111 sets, daily range): BP systolic 115–159; BP diastolic 41–70; PULSE 60–79; RESP 16–25; TEMP 97.9–99.5; O2SAT 95–100
[2023-12-09 06:08] LABS: Basophils # (auto) 0 10 ^3/uL (0-0.2); Basophils % (auto) 0.3 % (0.0-2.0); Eosinophils # (auto) 0.2 10 ^3/uL (0-0.8); Eosinophils % (auto) 2.1 % (0.0-7.0); Hematocrit 43.4 % (41.0-53.0); Hemoglobin 14.3 g/dL (13.5-17.5); Lymphocytes # (auto) 0.6 10 ^3/uL (0.4-5.4); Lymphocytes % (auto) 6.9 % (10.0-50.0); Mean Corpuscular Hemoglobin 30.7 pg (28.0-32.0); Mean Corpuscular Hgb Conc. 32.8 g/dL (32.0-36.0); Mean Corpuscular Volume 93.6 fL (80.0-100.0); Monocytes # (auto) 1.2 10 ^3/uL (0-1.3); Monocytes % (auto) 13.6 % (0.0-12.0); Neutrophils # (auto) 6.7 10 ^3/uL (1.6-8.6); Neutrophils % (auto) 77.1 % (37.0-80.0); Nucleated Red Blood Cells % 0.2 %; Red Blood Cells 4.64 10^6/uL (4.5-5.90); Red Cell Distribution Width 16.8 % (11.8-14.3); White Blood Cell 8.7 10^3/uL (4.4-10.8)
[2023-12-09 06:27] LABS: Alanine Aminotransferase 24 U/L (7-40); Albumin 3.4 g/dL (3.2-4.8); Alkaline Phosphatase 82 U/L (46-116); Anion Gap 6 (5-15); Aspartate Aminotransferase 16 U/L (13-40); BUN/Creatinine Ratio 18.6 (10.0-20.0); Blood Urea Nitrogen 16 mg/dL (9-23); Calcium 9.5 mg/dL (8.5-10.1); Carbon Dioxide 31 mmol/L (20-30); Chloride 102 mmol/L (98-107); Glucose 125 mg/dL (74-106); Magnesium 2.3 mg/dL (1.6-2.6); Potassium 3.6 mmol/L (3.5-5.1); Sodium 139 mmol/L (136-145)
[2023-12-09 06:28] LABS: Total Protein 5.8 g/dL (5.7-8.2)
[2023-12-09 09:21] LABS: Base Excess 3.3 mmol/L (-2.0-2.0)
[2023-12-09] MEDS: FUROSEMIDE 40 MG/4 ML VIAL IV SCH (10:25)
[2023-12-09] MEDS: SPIRONOLACTONE 25 MG TAB PO SCH (10:26)
[2023-12-09] MEDS: LINEZOLID 600MG/300ML 300 ML IV SCH (13:56)
[2023-12-09] MEDS ORDERED: LINEZOLID 600MG/300ML 300 ML IV SCH (14:00)
[2023-12-10] VITALS (100 sets, daily range): BP systolic 116–155; BP diastolic 45–81; PULSE 66–84; RESP 14–34; TEMP 97.9–99.3; O2SAT 25–100
[2023-12-10 04:27] LABS: Chloride 111 mmol/L (98-107); Potassium 2.9 mmol/L (3.5-5.1); Sodium 142 mmol/L (136-145)
[2023-12-10 04:28] LABS: Calcium 7.4 mg/dL (8.7-10.4)
[2023-12-10 04:33] LABS: BUN/Creatinine Ratio 24.2 (10.0-20.0); Blood Urea Nitrogen 16 mg/dL (9-23); Glucose 119 mg/dL (74-106); Magnesium 1.7 mg/dL (1.6-2.6)
[2023-12-10 05:10] LABS: Anion Gap 7 (5-15); Carbon Dioxide 24 mmol/L (20-30)
[2023-12-10] MEDS: POTASSIUM CHL 20MEQ/100ML 100 ML IV SCH (08:03)
[2023-12-10 08:16] LABS: Basophils # (auto) 0 10 ^3/uL (0-0.2); Basophils % (auto) 0.5 % (0.0-2.0); Eosinophils # (auto) 0.2 10 ^3/uL (0-0.8); Eosinophils % (auto) 2.4 % (0.0-7.0); Hematocrit 47.6 % (41.0-53.0); Hemoglobin 15.4 g/dL (13.5-17.5); Lymphocytes # (auto) 0.7 10 ^3/uL (0.4-5.4); Lymphocytes % (auto) 7.3 % (10.0-50.0); Mean Corpuscular Hemoglobin 30.4 pg (28.0-32.0); Mean Corpuscular Hgb Conc. 32.4 g/dL (32.0-36.0); Mean Corpuscular Volume 93.9 fL (80.0-100.0); Monocytes # (auto) 1.5 10 ^3/uL (0-1.3); Monocytes % (auto) 15.2 % (0.0-12.0); Neutrophils # (auto) 7.5 10 ^3/uL (1.6-8.6); Neutrophils % (auto) 74.6 % (37.0-80.0); Nucleated Red Blood Cells % 0.2 %; Red Blood Cells 5.07 10^6/uL (4.5-5.90); Red Cell Distribution Width 17.2 % (11.8-14.3); White Blood Cell 10.1 10^3/uL (4.4-10.8)
[2023-12-10 08:37] LABS: Base Excess 3.4 mmol/L (-2.0-2.0)
[2023-12-10] MEDS: MAGNESIUM SULFATE 1GM/100ML 100 ML IV SCH (09:37)
[2023-12-10] MEDS: FUROSEMIDE 40 MG/4 ML VIAL IV ONE (14:00)
[2023-12-10] MEDS ORDERED: hydrALAZINE HCL 20 MG/ML VL IV PRN (14:15)
[2023-12-10] MEDS: hydrALAZINE HCL 20 MG/ML VL IV PRN (14:25)
[2023-12-10 17:40] LABS: Base Excess 2.1 mmol/L (-2.0-2.0)
[2023-12-10] MEDS: hydrALAZINE HCL 20 MG/ML VL IV ONE (23:34)
[2023-12-11] VITALS (38 sets, daily range): BP systolic 118–150; BP diastolic 51–69; PULSE 70–93; RESP 12–33; TEMP 97.5–99.9; O2SAT 94–100
[2023-12-11 03:43] LABS: Basophils # (auto) 0 10 ^3/uL (0-0.2); Basophils % (auto) 0.2 % (0.0-2.0); Eosinophils # (auto) 0.2 10 ^3/uL (0-0.8); Eosinophils % (auto) 1.8 % (0.0-7.0); Hematocrit 47.4 % (41.0-53.0); Hemoglobin 15.8 g/dL (13.5-17.5); Lymphocytes # (auto) 0.6 10 ^3/uL (0.4-5.4); Mean Corpuscular Hemoglobin 30.9 pg (28.0-32.0); Mean Corpuscular Hgb Conc. 33.2 g/dL (32.0-36.0); Mean Corpuscular Volume 92.9 fL (80.0-100.0); Monocytes # (auto) 1.1 10 ^3/uL (0-1.3); Monocytes % (auto) 11.8 % (0.0-12.0); Neutrophils # (auto) 7.8 10 ^3/uL (1.6-8.6); Neutrophils % (auto) 80.2 % (37.0-80.0); Nucleated Red Blood Cells % 0.1 %; Red Cell Distribution Width 16.9 % (11.8-14.3); White Blood Cell 9.7 10^3/uL (4.4-10.8)
[2023-12-11 03:53] LABS: Anion Gap 4 (5-15); Carbon Dioxide 28 mmol/L (20-30); Chloride 103 mmol/L (98-107); Potassium 3.9 mmol/L (3.5-5.1)
[2023-12-11 03:55] LABS: Calcium 9.8 mg/dL (8.5-10.1)
[2023-12-11 03:59] LABS: Glucose 161 mg/dL (74-106)
[2023-12-11 04:00] LABS: BUN/Creatinine Ratio 20.4 (10.0-20.0); Blood Urea Nitrogen 20 mg/dL (9-23); Magnesium 2.3 mg/dL (1.6-2.6)
[2023-12-11 04:09] LABS: Sodium 135 mmol/L (136-145)
[2023-12-11 10:33] LABS: Urine Bacteria FEW /hpf (None Seen); Urine Blood 2+ /uL (Negative); Urine Budding Yeast FEW /hpf (None Seen); Urine Clarity Turbid (Clear); Urine Color Colorless (Yellow); Urine Mucus FEW (None Seen); Urine Protein, UAD Negative (Negative); Urine Specific Gravity 1.008 (1.001-1.035); Urine Urobilinogen Normal (Negative); Urine WBC 168 /hpf (0 - 3)
[2023-12-11] MEDS: ENOXAPARIN SOD 40 MG/0.4 ML SYRINGE SC ONE (13:09)
[2023-12-11] MEDS: FUROSEMIDE 40 MG/4 ML VIAL IV SCH (17:40)
[2023-12-11] MEDS: InsuLIN REG 1unit/0.01ml Soln (100units/ml) ONE (18:19)
[2023-12-11] MEDS: SACUBITRIL-VALSARTAN 24mg/26mg TAB PO SCH (21:32)
[2023-12-12] VITALS (26 sets, daily range): BP systolic 124–160; BP diastolic 50–69; PULSE 71–88; RESP 13–29; TEMP 97.6–98.8; O2SAT 93–100
[2023-12-12 03:59] LABS: Basophils # (auto) 0.1 10 ^3/uL (0-0.2); Basophils % (auto) 0.7 % (0.0-2.0); Eosinophils # (auto) 0.1 10 ^3/uL (0-0.8); Eosinophils % (auto) 1.5 % (0.0-7.0); Hemoglobin 14.5 g/dL (13.5-17.5); Lymphocytes # (auto) 0.8 10 ^3/uL (0.4-5.4); Lymphocytes % (auto) 8.9 % (10.0-50.0); Mean Corpuscular Hemoglobin 30.3 pg (28.0-32.0); Mean Corpuscular Volume 91.9 fL (80.0-100.0); Monocytes # (auto) 1.1 10 ^3/uL (0-1.3); Monocytes % (auto) 12.3 % (0.0-12.0); Neutrophils # (auto) 6.7 10 ^3/uL (1.6-8.6); Neutrophils % (auto) 76.6 % (37.0-80.0); Nucleated Red Blood Cells % 0.1 %; Red Blood Cells 4.79 10^6/uL (4.5-5.90); White Blood Cell 8.8 10^3/uL (4.4-10.8)
[2023-12-12 04:23] LABS: Alanine Aminotransferase 15 U/L (7-40); Albumin 3.2 g/dL (3.2-4.8); Alkaline Phosphatase 80 U/L (46-116); Anion Gap 6 (5-15); Aspartate Aminotransferase 17 U/L (13-40); BUN/Creatinine Ratio 19.3 (10.0-20.0); Blood Urea Nitrogen 17 mg/dL (9-23); Calcium 9.3 mg/dL (8.7-10.4); Carbon Dioxide 29 mmol/L (20-30); Chloride 103 mmol/L (98-107); Glucose 150 mg/dL (74-106); Magnesium 2.1 mg/dL (1.6-2.6); Potassium 3.7 mmol/L (3.5-5.1); Sodium 138 mmol/L (136-145)
[2023-12-12 04:24] LABS: Bilirubin, Total 0.8 mg/dL (0.2-1.0)
[2023-12-12] MEDS ORDERED: POTASSIUM EFFERVESENT TAB 25 MEQ PO ONE (09:30)
[2023-12-12] MEDS: ENOXAPARIN SOD 40 MG/0.4 ML SYRINGE SC SCH (10:28)
[2023-12-12] MEDS: POTASSIUM CHL 20MEQ/100ML 100 ML IV ONE (11:19)
[2023-12-12] MEDS: FUROSEMIDE 40 MG/4 ML VIAL IV SCH (17:55)
[2023-12-12 19:38] LABS: INR 1.15 (0.9-1.15); Prothrombin Time 12.1 sec (9.3-11.8)
[2023-12-13] VITALS (13 sets, daily range): BP systolic 121–142; BP diastolic 52–65; PULSE 75–87; RESP 18–19; TEMP 97.9–98.6; O2SAT 92–97
[2023-12-13 06:10] LABS: Basophils # (auto) 0 10 ^3/uL (0-0.2); Basophils % (auto) 0.6 % (0.0-2.0); Eosinophils # (auto) 0.1 10 ^3/uL (0-0.8); Eosinophils % (auto) 1.7 % (0.0-7.0); Hematocrit 39.1 % (41.0-53.0); Hemoglobin 13.1 g/dL (13.5-17.5); Lymphocytes % (auto) 14.9 % (10.0-50.0); Mean Corpuscular Hemoglobin 30.7 pg (28.0-32.0); Mean Corpuscular Hgb Conc. 33.5 g/dL (32.0-36.0); Mean Corpuscular Volume 91.6 fL (80.0-100.0); Monocytes # (auto) 0.8 10 ^3/uL (0-1.3); Monocytes % (auto) 11.2 % (0.0-12.0); Neutrophils % (auto) 71.6 % (37.0-80.0); Red Blood Cells 4.27 10^6/uL (4.5-5.90); Red Cell Distribution Width 16.5 % (11.8-14.3)
[2023-12-13 06:24] LABS: INR 1.18 (0.9-1.15); Prothrombin Time 12.4 sec (9.3-11.8)
[2023-12-13 06:35] LABS: Anion Gap 6 (5-15); Carbon Dioxide 28 mmol/L (20-30); Chloride 103 mmol/L (98-107); Potassium 3.2 mmol/L (3.5-5.1); Sodium 137 mmol/L (136-145)
[2023-12-13 06:41] LABS: BUN/Creatinine Ratio 15.7 (10.0-20.0); Blood Urea Nitrogen 14 mg/dL (9-23); Calcium 8.8 mg/dL (8.5-10.1); Glucose 219 mg/dL (74-106)
[2023-12-13 06:42] LABS: Magnesium 1.9 mg/dL (1.6-2.6)
[2023-12-13] MEDS: MAGNESIUM OXIDE 400 MG TAB PO ONE (10:25)
[2023-12-13] MEDS: POTASSIUM EFFERVESENT TAB 25 MEQ PO ONE (10:25)
[2023-12-13] MEDS: LINEZOLID 600MG TABLET PO SCH (10:25)
[2023-12-13] MEDS: FUROSEMIDE 20 MG/2 ML VIAL IV SCH (17:54)
[2023-12-14] VITALS (10 sets, daily range): BP systolic 134–156; BP diastolic 51–89; PULSE 72–80; RESP 16–20; TEMP 97.6–98.1; O2SAT 95–99
[2023-12-14 06:22] LABS: Basophils # (auto) 0.1 10 ^3/uL (0-0.2); Basophils % (auto) 0.7 % (0.0-2.0); Eosinophils # (auto) 0.2 10 ^3/uL (0-0.8); Eosinophils % (auto) 2.9 % (0.0-7.0); Hematocrit 42.1 % (41.0-53.0); Hemoglobin 13.6 g/dL (13.5-17.5); Lymphocytes % (auto) 14.4 % (10.0-50.0); Mean Corpuscular Hemoglobin 29.8 pg (28.0-32.0); Mean Corpuscular Hgb Conc. 32.4 g/dL (32.0-36.0); Mean Corpuscular Volume 92.1 fL (80.0-100.0); Monocytes # (auto) 0.6 10 ^3/uL (0-1.3); Monocytes % (auto) 8.9 % (0.0-12.0); Neutrophils # (auto) 5.1 10 ^3/uL (1.6-8.6); Neutrophils % (auto) 73.1 % (37.0-80.0); Nucleated Red Blood Cells % 0.1 %; Red Blood Cells 4.57 10^6/uL (4.5-5.90); Red Cell Distribution Width 16.9 % (11.8-14.3)
[2023-12-14 06:33] LABS: Chloride 104 mmol/L (98-107); Potassium 3.7 mmol/L (3.5-5.1); Sodium 140 mmol/L (136-145)
[2023-12-14 06:34] LABS: Anion Gap 4 (5-15); Calcium 9.4 mg/dL (8.7-10.4); Carbon Dioxide 32 mmol/L (20-30)
[2023-12-14 06:39] LABS: BUN/Creatinine Ratio 13.8 (10.0-20.0); Blood Urea Nitrogen 12 mg/dL (9-23); Glucose 122 mg/dL (74-106); Magnesium 1.9 mg/dL (1.6-2.6)
[2023-12-14] MEDS: MAGNESIUM OXIDE 400 MG TAB PO ONE (12:27)
[2023-12-14] MEDS: POTASSIUM EFFERVESENT TAB 25 MEQ PO ONE (12:27)
[2023-12-14] MEDS: TICAGRELOR 90 MG TAB PO ONE (12:28)
[2023-12-14] MEDS: ASPirin 81 mg TAB PO ONE (12:28)
[2023-12-14] MEDS ORDERED: SPIR25TA PO (14:07)
[2023-12-14] MEDS ORDERED: POTA-36 PO (14:09)
[2023-12-14] MEDS ORDERED: CLOP75TA28 PO (14:58)
[2023-12-14] MEDS: CLOPIDOGREL BISULFATE 75 MG TAB PO ONE (18:16)
== END 2023-12-14 17:44 | disposition home health service (06) | DRG 671 ==
LOC: EDBD 09:56 → ER 09:56 → TELE 14:10 → TELE-CENTR 21:39 → ICU WEST 12-07 03:19 → TELE-WESTW 12-12 13:59
PROVIDERS: ADMIT Internal Medicine; ATTEND Internal Medicine
PROC: 5A09357 Assistance with Respiratory Ventilation, Less than 24 Consecutive Hours, Continuous Positive Airway Pressure (ICD-10-PCS; 2023-12-06)
PROC: 0T9D80Z Drainage of Urethra with Drainage Device, Via Natural or Artificial Opening Endoscopic (ICD-10-PCS; principal; 2023-12-06 15:27)
PROC: 0BH17EZ Insertion of Endotracheal Airway into Trachea, Via Natural or Artificial Opening (ICD-10-PCS; 2023-12-07)
PROC: 5A1945Z Respiratory Ventilation, 24-96 Consecutive Hours (ICD-10-PCS; 2023-12-07)
PROC: 02HV33Z Insertion of Infusion Device into Superior Vena Cava, Percutaneous Approach (ICD-10-PCS; 2023-12-07)
PROC: B548ZZA Ultrasonography of Superior Vena Cava, Guidance (ICD-10-PCS; 2023-12-07)
PROC: 5A09357 Assistance with Respiratory Ventilation, Less than 24 Consecutive Hours, Continuous Positive Airway Pressure (ICD-10-PCS; 2023-12-10)
DX: N35.819 Other urethral stricture, male, unspecified site (principal); G93.41 Metabolic encephalopathy; J96.22 Acute and chronic respiratory failure with hypercapnia; I50.43 Acute on chronic combined systolic (congestive) and diastolic (congestive) heart failure; J96.21 Acute and chronic respiratory failure with hypoxia; J44.1 Chronic obstructive pulmonary disease with (acute) exacerbation; E87.4 Mixed disorder of acid-base balance; I82.613 Acute embolism and thrombosis of superficial veins of upper extremity, bilateral; N40.1 Benign prostatic hyperplasia with lower urinary tract symptoms; I11.0 Hypertensive heart disease with heart failure; I25.5 Ischemic cardiomyopathy; I25.10 Atherosclerotic heart disease of native coronary artery without angina pectoris; E11.51 Type 2 diabetes mellitus with diabetic peripheral angiopathy without gangrene; E66.01 Morbid (severe) obesity due to excess calories; E78.00 Pure hypercholesterolemia, unspecified; E87.5 Hyperkalemia; E87.6 Hypokalemia; J43.9 Emphysema, unspecified; R31.0 Gross hematuria; E03.9 Hypothyroidism, unspecified; K21.9 Gastro-esophageal reflux disease without esophagitis; R33.8 Other retention of urine; E53.8 Deficiency of other specified B group vitamins; E55.9 Vitamin D deficiency, unspecified; Z79.02 Long term (current) use of antithrombotics/antiplatelets; Z68.30 Body mass index [BMI] 30.0-30.9, adult; Z79.899 Other long term (current) drug therapy; Z99.81 Dependence on supplemental oxygen; Z95.1 Presence of aortocoronary bypass graft; Z95.820 Peripheral vascular angioplasty status with implants and grafts; I25.2 Old myocardial infarction; Z87.891 Personal history of nicotine dependence; Z83.3 Family history of diabetes mellitus; Z88.0 Allergy status to penicillin; Z87.440 Personal history of urinary (tract) infections
CPT/HCPCS: 36415; 36569; 36600; 71045; 74176; 80048; 80053; 80061; 81001; 82805; 82962; 83036; 83735; 83880; 84132; 84443; 84484; 85025; 85610; 85730; 87070; 87081; 87086; 87088; 87186; 87205; 92610; 93005; 93970; 94002; 94003; 94640; 94644; 94660; 96374; 96375; 97110; 97116; 97163; 97530; 99291; C9113; G0378; J0330; J1450; J1815; J1956; J2001; J2250; J2405; J2704; J3480

== ENCOUNTER 2024-06-17 16:53 | Inpatient (IN) | payer BC, MEDICARE, OTHER ==
[~2024-06-17] VITALS: Ht 182.9 cm; Wt 96.0 kg
[~2024-06-17 16:53] MED LIST changes: +ALBU108A5 IN; +CLOP75TA28 PO; -ENAL1TAB42 PO; -PIO30T PO; +PIOG1TAB37 PO; +SACU1TAB7 PO; +SPIR25TA PO; -TAMS0.4C36 PO; +TAMS0.4C39 PO; -TICA90TA PO
--- NOTE | 2024-06-17 18:21 | DVH ---
CHEST RADIOGRAPH Indication: CP Technique: Single frontal view of the chest was obtained Comparison: XY CHEST PORTABLE on DOS: 12/12/23, XY CHEST PORTABLE on DOS: 12/11/23, XY CHEST PORTABLE o n DOS: 12/10/23 Findings/ IMPRESSION: Mild cardiomegaly. Postsurgical changes of the heart. No focal consolidation or pneumothorax. No ple ural effusions.
--- NOTE | 2024-06-17 18:21 | ECG ---
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
--- NOTE | 2024-06-17 18:21 | ECG ---
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
[2024-06-17 18:51] LABS: Basophils # (auto) 0.1 10 ^3/uL (0-0.2); Basophils % (auto) 0.7 % (0.0-2.0); Eosinophils # (auto) 0.3 10 ^3/uL (0-0.8); Eosinophils % (auto) 2.7 % (0.0-7.0); Hematocrit 48.5 % (41.0-53.0); Hemoglobin 16.1 g/dL (13.5-17.5); Lymphocytes # (auto) 1.4 10 ^3/uL (0.4-5.4); Lymphocytes % (auto) 13.8 % (10.0-50.0); Mean Corpuscular Hemoglobin 31.4 pg (28.0-32.0); Mean Corpuscular Hgb Conc. 33.2 g/dL (32.0-36.0); Mean Corpuscular Volume 94.4 fL (80.0-100.0); Monocytes # (auto) 0.9 10 ^3/uL (0-1.3); Monocytes % (auto) 9.1 % (0.0-12.0); Neutrophils # (auto) 7.4 10 ^3/uL (1.6-8.6); Neutrophils % (auto) 73.7 % (37.0-80.0); Platelet Count (auto) 245 10^3/uL (140-450); Red Blood Cells 5.14 10^6/uL (4.5-5.90); White Blood Cell 10.1 10^3/uL (4.4-10.8)
[2024-06-17 19:08] LABS: Alanine Aminotransferase 14 U/L (7-40); Albumin 4.4 g/dL (3.2-4.8); Alkaline Phosphatase 111 U/L (46-116); Anion Gap 11 (5-15); Aspartate Aminotransferase 15 U/L (13-40); BUN/Creatinine Ratio 36.8 (10.0-20.0); Carbon Dioxide 27 mmol/L (20-31); Chloride 99 mmol/L (98-107); Magnesium 2.2 mg/dL (1.6-2.6); Potassium 4.8 mmol/L (3.5-5.1); Sodium 137 mmol/L (136-145)
[2024-06-17 19:09] LABS: Bilirubin, Total 0.7 mg/dL (0.2-1.0); Calcium 11.7 mg/dL (8.7-10.4); Glucose 155 mg/dL (74-106); Total Protein 7.6 g/dL (5.7-8.2)
[2024-06-17 19:11] LABS: Blood Urea Nitrogen 98 mg/dL (9-23)
[2024-06-17 20:00] VITALS: PULSE 83; RESP 12
--- NOTE | 2024-06-17 20:44 | ED.PDOC ---
HPI Comments 83y M who presents to the ED via EMS for chief complaint of chest pain. Per EMS, pt called after pt states he told , he started to have chest pain and pointing to his chest. Pt told , he has been having sternal chest pain, non-radiating, with no noted exacerbating or relieving factors. Pt now in the ED, is unable to describe his chest pain or location and is noted to be pointing to the center of his chest. Pt otherwise in no noted distress. Pt has noted stable vitals in the ED. Pt denies any other symptoms at this time. Chief Complaint: Chest Pain Time Seen by MD: 19:30 Primary Care Provider: UNKNOWN Reviewed Notes: Peer Counselor Notes Allergies: Coded Allergies: Penicillins (Verified Allergy, Unknown, 10/23/23) Home Meds Active Scripts Clopidogrel Bisulfate (Plavix) 75 Mg Tab, 1 TAB PO DAILY, #30 TAB 2 Refills Prov:DEANNE CARMONA MD 12/14/23 Spironolactone (Aldactone) 25 Mg Tab, 25 MG PO DAILY for 30 Days, #30 TAB Prov:LUIS EDUARDO LESLIE 12/14/23 Furosemide (Lasix) 40 Mg Tab, 40 MG PO QAM for 30 Days, #30 TAB 3 Refills Prov:DEANNE CARMONA MD 10/19/22 Pantoprazole Sodium Sesquihydr (Protonix) 40 Mg Tab, 40 MG PO DAILY, #30 TAB Prov:JACKIE VARGAS MD 07/30/19 Reported Medications Kwcwqcqwlni-Buxpfrkmjmwu-Iklrq (Trelegy Ellipta 200-62.5-25 Mcg/INH) 1 Aer Aer, 1 PUFF INH DAILY 10/24/23 Amlodipine Besylate (Amlodipine Besylate) 5 Mg Tab, 10 MG PO DAILY, MG 11/30/22 Levothyroxine Sodium (Levothyroxine Sodium) 100 Mcg Tab, 100 MCG PO DAILY, MCG 11/30/22 Finasteride (Finasteride) 5 Mg Tab, 5 MG PO DAILY, MG 11/30/22 Carvedilol (Carvedilol) 6.25 Mg Tab, 6.25 MG PO BID, MG 11/30/22 Sacubitril-Valsartan (Entresto 97-103 mg) 1 Tab Tab, 1 TAB PO BID 10/16/22 Aspirin (Aspir-Low) 81 Mg Tab, 81 MG PO DAILY for 30 Days, MG 07/27/19 Latanoprost (LATANOPROST) 0.005 % Radha, 1 DROP EACHEYE QPM, #7.5 ML 3 Refills 07/27/19 Tamsulosin Hcl (Tamsulosin Hcl) 0.4 Mg Cap, 0.4 MG PO QPM for 30 Days, MG 07/27/19 Allopurinol (Allopurinol) 300 Mg Tab, 300 MG PO DAILY for 30 Days, MG 07/27/19 Atorvastatin Calcium (ATORVASTATIN CALCIUM) 20 Mg Tab, 20 MG PO DAILY, TAB 07/27/19 Information Source: Emergency Med Personnel Mode of Arrival: EMS Past Medical History PAST MEDICAL HISTORY: CAD, CHF, CKF, COPD, DM, High Lipids, HTN, OK, Thyroid, U TI'S Surgical History: CABG, PTCA Family History Family History: Reviewed,noncontributory to illness, Unknown Social History Smoker: Non-Smoker Alcohol: Denies ETOH Use Drugs: Denies Drug Use Lives In: Home Constitutional: denies: chills, diaphoresis, fatigue, fever, malaise, sweats, weakness, others EENTM: denies: blurred vision, double vision, ear bleeding, ear discharge, ear drainage, ear pain, ear ringing, eye pain, eye redness, hearing loss, mouth pain, mouth swelling, nasal discharge, nose bleeding, nose congestion, nose pain, photophobia, tearing, throat pain, throat swelling, voice changes, others Respiratory: denies: cough, hemoptysis, orthopnea, SOB at rest, shortness of breath, SOB with excertion, stridor, wheezing, others Cardiovascular: reports: chest pain; denies: dizzy spells, diaphoresis, Dyspnea on exertion, edema, irregular heart beat, left arm pain, lightheadedness, palpitations, PND, syncope, others Gastrointestinal: denies: abdomen distended, abdominal pain, blood streaked bowels, constipated, diarrhea, dysphagia, difficulty swallowing, hematemesis, melena, nausea, poor appetite, poor fluid intake, rectal bleeding, rectal pain, vomiting, others Genitourinary: denies: burning, dysuria, flank pain, frequency, hematuria, incontinence, penile discharge, penile sore, pain, testicle pain, testicle swelling, urgency, others Neurological: denies: dizziness, fainting, headache, left sided numbness, left sided weakness, numbness, paresthesia, pre-existing deficit, right sided numbness, right sided weakness, seizure, speech problems, tingling, tremors, weakness, others Musculoskeletal: denies: back pain, gout, joint pain, joint swelling, muscle pain, muscle stiffness, neck pain, others Integumetry: denies: bruises, change in color, change in hair/nails, dryness, laceration, lesions, lumps, rash, wounds, others Allergic/Immunocompromised: denies: Difficulty Healing, Frequent Infections, Hives, Itching, others Hematologic/Lymphatic: denies: anemia, blood clots, easy bleeding, easy bruising, swollen glands, others Endocrine: denies: excessive hunger, excessive sweating, excessive thirst, excessive urination, flushing, intolerance to cold, intolerance to heat, unexplained weight gain, unexplained weight loss, others Psychiatric: denies: anxiety, bipolar disorder, depression, hopeless, panic disorder, schizophrenia, sleepless, suicidal, others All Other Systems: Reviewed and Negative Physical Exam General Appearance: Other (pleasantly confused, noted chest wall scar) HEENT: Normal ENT Inspection, Pharynx Normal, TMs Normal Neck: Full Range of Motion, Non-Tender, Normal, Normal Inspection Respiratory: Chest Non-Tender, Lungs Clear, No Accessory Muscle Use, No Respiratory Distress, Normal Breath Sounds Cardiovascular: No Edema, No JVD, No Murmur, No Gallop, Normal Peripheral Pulses, Regular Rate/Rhythm Breast Exam: Deferred Gastrointestinal: No Organomegaly, Non Tender, No Pulsatile Mass, Normal Bowel Sounds, Soft Genitalia: Deferred Pelvic: Deferred Rectal: Deferred Extremities: No calf tenderness, Normal capillary refill, Normal inspection, Normal range of motion, Non-tender, No pedal edema Musculoskeletal : Apperance: Normal Neurologic: Alert, agriculture science teacher II-XII nml as Tested, No Motor Deficits, Normal Affect, Normal Mood, No Sensory Deficits Cerebellar Function: Normal Reflexes: Normal Skin: Dry, Normal Color, Warm Lymphatic: No Adenopathy Was a procedure done? Was a procedure done?: No CP Differential Dx Differential Diagnosis: A-fib, A-Flutter, Angina, Anxiety / Panic Attack, Electrolyte Disorder, Heart Failure, OK, PAC's, PVC's Other Differential Diagnosis metabolic encephalopathy Differential Diagnosis: HTN Essential, HTN Accelerated Differential Diagnosis: Chest Wall Pain X-Ray, Labs, Meds, VS Vital Signs Date Time Temp Pulse Resp B/P (MAP) Pulse Ox O2 Delivery O2 Flow Rate FiO2 06/17/24 20:03 80 06/17/24 20:00 80 06/17/24 18:05 77 06/17/24 17:02 98.0 75 20 124/60 (81) 94 06/17/24 16:57 73 Lab Test 06/17/24 19:48 06/17/24 18:36 Range/Units Troponin I High Sensitivity 11 12 </=54 ng/L White Blood Count 10.1 4.4-10.8 10^3/uL Red Blood Count 5.14 4.5-5.90 10^6/uL Hemoglobin 16.1 13.5-17.5 g/dL Hematocrit 48.5 41.0-53.0 % Mean Corpuscular Volume 94.4 80.0-100.0 fL Mean Corpuscular Hemoglobin 31.4 28.0-32.0 pg Mean Corpuscular Hemoglobin Concent 33.2 32.0-36.0 g/dL Red Cell Distribution Width 19.0 H 11.8-14.3 % Platelet Count 245 140-450 10^3/uL Mean Platelet Volume 9.0 6.9-10.8 fL Neutrophils (%) (Auto) 73.7 37.0-80.0 % Lymphocytes (%) (Auto) 13.8 10.0-50.0 % Monocytes (%) (Auto) 9.1 0.0-12.0 % Eosinophils (%) (Auto) 2.7 0.0-7.0 % Basophils (%) (Auto) 0.7 0.0-2.0 % Neutrophils # (Auto) 7.4 1.6-8.6 10 ^3/uL Lymphocytes # (Auto) 1.4 0.4-5.4 10 ^3/uL Monocytes # (Auto) 0.9 0-1.3 10 ^3/uL Eosinophils # (Auto) 0.3 0-0.8 10 ^3/uL Basophils # (Auto) 0.1 0-0.2 10 ^3/uL Nucleated Red Blood Cells 0.0 % Sodium Level 137 136-145 mmol/L Potassium Level 4.8 3.5-5.1 mmol/L Chloride Level 99 98-107 mmol/L Carbon Dioxide Level 27 20-31 mmol/L Anion Gap 11 5-15 Blood Urea Nitrogen 98 *H 9-23 mg/dL Creatinine 2.66 H 0.700-1.30 mg/dL Glomerular Filtration Rate Calc 23 >90 mL/min BUN/Creatinine Ratio 36.8 H 10.0-20.0 Serum Glucose 155 H 74-106 mg/dL Calcium Level 11.7 H 8.7-10.4 mg/dL Magnesium Level 2.2 1.6-2.6 mg/dL Total Bilirubin 0.7 0.2-1.0 mg/dL Aspartate Amino Transferase (AST) 15 13-40 U/L Alanine Aminotransferase (ALT) 14 7-40 U/L Alkaline Phosphatase 111 46-116 U/L B-Type Natriuretic Peptide 60.50 0-100 pg/mL Total Protein 7.6 5.7-8.2 g/dL Albumin 4.4 3.2-4.8 g/dL [place] [id number] Ph: [phone] DIAGNOSTIC IMAGING Diagnostic Imaging Report : [id number] Signed PATIENT: MEREDITH GOYAL ACCT: [id number] UNIT: [id number] : 1940 LOC: ER ROOM / BED: / AGE / SEX: 83 / M ADM STATUS: REG ER SERVICE 1703 ORDERING PHYSICIAN: FRENCH MANCERA MD PROCEDURE(s): CXRP - CHEST PORTABLE REASON: CP ORDER NUMBER(s): [id number], ACCESSION NUMBER(s): [id number] CHEST RADIOGRAPH Indication: CP Technique: Single frontal view of the chest was obtained Comparison: XY CHEST PORTABLE on DOS: 12/12/23, XY CHEST PORTABLE on DOS: 12/11/23, XY CHEST PORTABLE on DOS: 12/10/23 Findings/ IMPRESSION: Mild cardiomegaly. Postsurgical changes of the heart. No focal consolidation or pneumothorax. No pleural effusions. ATED BY: MICHELLE RENTERIA DO DICTATED DATE/TIME: 06/17/241817 SIGNED BY: MICHELLE RENTERIA DO SIGNED DATE/TIME: 06/17/241817 CC: Time of 1ST Reevaluation: 20:00 Reevaluation 1ST: Unchanged Patient Education/Counseling: Diagnosis, Treatment Family Education/Counseling: No Family Present Additional Information - I reviewed the following notes from patient's past medical encounters: - The following tests were ordered, and results were reviewed by me: (Labs, X- Ray, EKG): EKG x3 , CMP, BNP, CBC, troponin x3, chest x-ray, magnesium level, - Additional information was gathered from interviewing the following independent Historian: (Family, Other Providers, EMT): EMS - I reviewed and agreed with the following test results read by other provider: (X-ray, CT, US): radiologist - I discussed treatments and results with medical personnel and: (consultants, family): none Departure 1 Departure Time of Disposition: 22:09 (Patient presented with chest pain that was concerning for possible STEMI, ACS, PE, Pneumonia, Muscle Strain, COPD, Dissection. Data: 1. I ordered and reviewed the result of at least 3 labs including a CBC, BMP, and Troponin. 2. I independently interpreted the following tests: EKG which shows sinus arrhythmia _ and Chest X-ray which shows vascular congestion.Risk:This patient has a high risk of morbidity due to further diagnostic testing or treatment and may suffer from an acute cardiac or respiratory disorder. Workup reveals concern for ACS and an DEBBIE and patient should be admitted for further workup and possible expert consultation. ) Impression: Primary Impression: Acute chest pain Additional Impression: DEBBIE (acute kidney injury) Disposition: 09 ADMITTED INPATIENT Admit to: Med Surg Condition: Serious Critical Care Note Critical Care Time?: Yes Critical care comment: Acute chest pain Authorized and Performed by: French Mancera MD Total critical care time: Approximately 38 minutes Due to a high probability of clinically significant, life threatening deteri oration, the patient required my highest level of preparedness to intervene emergently and I personally spent this critical care time directly and personally managing the patient. This critical care time included obtaining a history; examining the patient; pulse oximetry; ordering and review of studies; arranging urgent treatment with development of a management plan; evaluation of patient's response to treatment; frequent reassessment; and, discussions with other providers. This critical care time was performed to assess and manage the high probability of imminent, life-threatening deterioration that could result in multi-organ cammie lure. It was exclusive of separately billable procedures and treating other patients and teaching time. Please see my other sections and the rest of the note for further information on patient assessment and treatment. Stability Stability form required: No Heart Score Heart Score: Heart Score Response (Comments) Value History Moderate Suspicious 1 EKG Repolarization Disturb 1 Age >65 2 Risk Factors >3 or Hx ASHD 2 Troponin 1-2 x's Normal limit 1 Total 7 I personally scribed for FRENCH MANCERA MD ([email or web address]) on 06/17/24 at 20:44. Electronically submitted by Gt Dahl ([email or web address]). FRENCH MANCERA MD Jun 17, 2024 20:44
--- NOTE | 2024-06-17 23:57 | DVHHPRES ---
History of Present Illness Resident Creating Document: BILLY ZARAGOZA RESIDENT History of Present Illness This is a 83-year-old male with past medical history of hypertension, hyperlipidemia, COPD , CHF, CAD with s/p CABG, CKD, gout presented to the ED with a chief complaint of chest pain and shortness of bed for 1 day prior to this admission. The patient stated that the chest pain which was sharp stabbing pain, 8/10, continuous nonradiating and associated with shortness of breath. The patient was in hospice previously before coming to the hospital. The patient denies fever, flu-like symptoms, sick contact, blurring of vision, dizziness diaphoresis, abdominal pain, nausea, vomiting or any change in bowel and bladder habit. Past Medical History Hypertension, hyperlipidemia, COPD , CHF, CAD , CKD, gout Past Surgical History PTCA, CABG Family History None Past Social History Lives with Family Nonsmoker, nonalcoholic and never tried any drugs Review of Systems Constitutional: No: Fever, Chills, Sweats, Weakness, Malaise, Other Eyes: No: Pain, Vision change, Conjunctivae inflammation, Eyelid inflammation, Other, Redness ENT: No: Ear pain, Ear discharge, Nose pain, Nose discharge, Nose congestion, Mouth pain, Mouth swelling, Throat pain, Throat swelling, Other Respiratory: Shortness of breath; No: Cough, Dry, SOB with excertion, Wheezing, Hemoptysis, Pleuritic Pain, Sputum, Wheezing, Other Cardiovascular: Chest Pain; No: Palpitations, Orthopnea, Paroxysmal Noc. Dyspnea, Edema, Lt Headedness, Other Gastrointestinal: No: Nausea, Vomiting, Abdominal Pain, Diarrhea, Constipation, Melena, Hematochezia, Other Genitourinary: No Dysuria, No Frequency, No Incontinence, No Hematuria, No Retention, No Other Musculoskeletal: No: other, neck pain, shoulder pain, arm pain, back pain, hand pain, leg pain, foot pain Skin: No: Rash, Lesions, Jaundice, Bruising, Other Neurological: No: Weakness, Numbness, Incoordination, Change in speech, Confusion, Seizures, Other Allergies: Coded Allergies: Penicillins (Verified Allergy, Unknown, 10/23/23) Exam Vital Signs Vital Signs Date Time Temp Pulse Resp B/P (MAP) Pulse Ox O2 Delivery O2 Flow Rate FiO2 06/17/24 23:00 77 18 128/58 (81) 97 06/17/24 20:00 Room Air* 0 21 06/17/24 20:00 97.9 97.9 Exam Physical examination: General Appearance: Alert, Oriented X3, Cooperative, mild distress HEENT: Atraumatic, PERRLA, EOMI, Mucous membrane moist/pink Respiratory: Clear to auscultation, Normal air movement Cardiovascular: Regular rate, Normal S1, Normal S2, No murmurs, no chest wall tenderness Abdominal: Normal bowel sounds, Soft, No tenderness, No hepatospenomegaly, No masses Extremities: No clubbing, No cyanosis, No edema, Normal pulses, No tenderness/swelling Skin: No rashes, No breakdown, No significant lesion Neuro: Normal gait, Normal speech, Strength at 5/5 X4 ext, Normal tone, Sensation intact, grossly intact cranial nerves. Psych/Mental Status: Mental status NL, Mood NL Labs/Xrays Labs Test 06/17/24 22:33 06/17/24 18:36 Range/Units Troponin I High Sensitivity 12 </=54 ng/L White Blood Count 10.1 4.4-10.8 10^3/uL Red Blood Count 5.14 4.5-5.90 10^6/uL Hemoglobin 16.1 13.5-17.5 g/dL Hematocrit 48.5 41.0-53.0 % Mean Corpuscular Volume 94.4 80.0-100.0 fL Mean Corpuscular Hemoglobin 31.4 28.0-32.0 pg Mean Corpuscular Hemoglobin Concent 33.2 32.0-36.0 g/dL Red Cell Distribution Width 19.0 H 11.8-14.3 % Platelet Count 245 140-450 10^3/uL Mean Platelet Volume 9.0 6.9-10.8 fL Neutrophils (%) (Auto) 73.7 37.0-80.0 % Lymphocytes (%) (Auto) 13.8 10.0-50.0 % Monocytes (%) (Auto) 9.1 0.0-12.0 % Eosinophils (%) (Auto) 2.7 0.0-7.0 % Basophils (%) (Auto) 0.7 0.0-2.0 % Neutrophils # (Auto) 7.4 1.6-8.6 10 ^3/uL Lymphocytes # (Auto) 1.4 0.4-5.4 10 ^3/uL Monocytes # (Auto) 0.9 0-1.3 10 ^3/uL Eosinophils # (Auto) 0.3 0-0.8 10 ^3/uL Basophils # (Auto) 0.1 0-0.2 10 ^3/uL Nucleated Red Blood Cells 0.0 % Sodium Level 137 136-145 mmol/L Potassium Level 4.8 3.5-5.1 mmol/L Chloride Level 99 98-107 mmol/L Carbon Dioxide Level 27 20-31 mmol/L Anion Gap 11 5-15 Blood Urea Nitrogen 98 *H 9-23 mg/dL Creatinine 2.66 H 0.700-1.30 mg/dL Glomerular Filtration Rate Calc 23 >90 mL/min BUN/Creatinine Ratio 36.8 H 10.0-20.0 Serum Glucose 155 H 74-106 mg/dL Calcium Level 11.7 H 8.7-10.4 mg/dL Magnesium Level 2.2 1.6-2.6 mg/dL Total Bilirubin 0.7 0.2-1.0 mg/dL Aspartate Amino Transferase (AST) 15 13-40 U/L Alanine Aminotransferase (ALT) 14 7-40 U/L Alkaline Phosphatase 111 46-116 U/L B-Type Natriuretic Peptide 60.50 0-100 pg/mL Total Protein 7.6 5.7-8.2 g/dL Albumin 4.4 3.2-4.8 g/dL Assessment/Plan Assessment/Plan Assessment and plan: # Chest pain rule out ACS, s/p CABG - EKG revealed T inversion in the lateral leads and troponins are unremarkable - Echo on 11/09 revealed EF 55% with grade 1 diastolic dysfunction. - Continue aspirin 81 mg p.o. daily, clopidogrel 75 mg p.o. daily and atorvastatin 40 mg at HS - Consulted Cardiology. 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 - Monitor BMP # Hypertensive heart disease - Amlodipine 10 mg p.o. daily # Type 2 Diabetes mellitus, HbA1C 6.9 - Mild sliding scale of insulin. # Acute cystitis - U/A is consistent with UTI - Ordered urine bacterial culture - IV ceftriaxone1 g daily # Chronic hypothyroidism - Levothyroxine 100 mg p.o. at q.a.m. # Chronic gout - Hold allopurinol because of elevated BUN and creatinine # PUD prophylaxis - Protonix 40 mg p.o. daily # DVT prophylaxis - Lovenox 40 mg SC daily. Goal of care discussed with the patient for more than 20 minutes but patient did not respond. Plan discussed with Dr. Sanchez Plan discussed with: Patient, Other Date of Service: Jun 17, 2024 Billing Provider: DONTAE SANCHEZ MD Common Visit Codes: [id number] INP/OBS CARE (HIGH) Secondary Visit Codes: [id number] CARE PLAN 30 MINUTES BILLY ZARAGOZA RESIDENT Jun 17, 2024 23:57 DONTAE SANCHEZ MD Jun 18, 2024 11:20
[2024-06-18] MEDS: SODIUM CHLORIDE 0.9% 500 ML IV ONE (01:00)
[2024-06-18] MEDS: ASPirin-EC 81 mg tab PO ONE (01:01)
[2024-06-18 02:59] LABS: Sodium Urine 47 mmol/L (40-220)
[2024-06-18 03:04] LABS: Protein, Urine 36.4 mg/dL (1-14)
[2024-06-18 03:09] LABS: Urine Bacteria FEW /hpf (None Seen); Urine Blood TRACE /uL (Negative); Urine Clarity Turbid (Clear); Urine Color Light-Yellow (Yellow); Urine Protein, UAD TRACE (Negative); Urine Specific Gravity 1.012 (1.001-1.035); Urine Squamous Epithelial Cell FEW /hpf (<5); Urine Urobilinogen Normal (Negative); Urine WBC 534 /hpf (0 - 3); Urine pH 6.5 (5.0-9.0)
[2024-06-18 03:12] LABS: Amphetamine Screen, Urine Neg (NEGATIVE); Barbiturate Scree,Urine Neg (NEGATIVE); Benzodiazephine Screen, Urine Neg (NEGATIVE); Cannabinoid Screen, Urine Neg (NEGATIVE); Cocaine Screen, Urine Neg (NEGATIVE); Opiate Scree,Urine Pos (NEGATIVE); Phencyclidine Screen, Urine Neg (NEGATIVE)
[2024-06-18 05:21] LABS: Chloride 100 mmol/L (98-107); Potassium 4.6 mmol/L (3.5-5.1); Sodium 140 mmol/L (136-145)
[2024-06-18 05:22] LABS: Anion Gap 11 (5-15); Carbon Dioxide 29 mmol/L (20-31)
[2024-06-18 05:27] LABS: BUN/Creatinine Ratio 39.8 (10.0-20.0)
[2024-06-18 05:48] LABS: Calcium 11.4 mg/dL (8.7-10.4); Glucose 152 mg/dL (74-106)
[2024-06-18 05:50] LABS: Blood Urea Nitrogen 100 mg/dL (9-23)
[2024-06-18] MEDS ORDERED: DEXTROSE (50%) 50ML SYRG IV PRN (06:15)
[2024-06-18] MEDS: InsuLIN REG 1unit/0.01ml Soln (100units/ml) SC SCH (07:14)
[2024-06-18] MEDS: ACCU-CHEK COMFORT CURVE STRIP VI SCH (07:15)
[2024-06-18 07:22] LABS: Albumin 4.3 g/dL (3.2-4.8); Bilirubin, Total 0.7 mg/dL (0.2-1.0); Total Protein 7.3 g/dL (5.7-8.2)
[2024-06-18 08:30] VITALS: PULSE 88; RESP 16; O2SAT 99
[2024-06-18] MEDS: cefTRIAXone 1GM/50ML D5W 50 ML IV SCH (09:37)
[2024-06-18] MEDS: HEPARIN SODIUM (PORCINE) 5000 UNITS/ML 1ML VIAL SC SCH (09:39)
[2024-06-18] MEDS: amLODIPine BESYLATE 5 MG TAB PO SCH (09:40)
[2024-06-18] MEDS: PANTOPRAZOLE 40 MG TAB PO SCH (09:40)
[2024-06-18] MEDS: ASPirin-EC 81 mg tab PO SCH (09:41)
[2024-06-18] MEDS: ERGOCALCIFEROL 50,000 UNIT(1.25MG) CAP PO SCH (09:41)
[2024-06-18] MEDS: FINASTERIDE 5 MG TAB PO SCH (09:41)
[2024-06-18] MEDS: CLOPIDOGREL BISULFATE 75 MG TAB PO SCH (09:41)
[2024-06-18] MEDS: LEVOTHYROXINE SODIUM 100 MCG TAB PO SCH (09:41)
--- NOTE | 2024-06-18 10:25 | DVH ---
CLINICAL INDICATION: left elbow pain Sp FX TECHNIQUE: 2 radiographic views of the left elbow were obtained. Comparison: None FINDINGS/IMPRESSION: Anterior elbow dislocation.
--- NOTE | 2024-06-18 11:06 | DVHINCON2 ---
Date of service: Jun 18, [address] Horne Reason for Consultation Acute kidney injury History of Present Illness Patient is a 83-year-old male with past medical history significant for CAD, CHF, CKD, COPD, DM, High Lipids, HTN, SD, Thyroid, and UTI'S is admitted for evaluation of chest pain. On admission patient found to have elevated BUN creatinine nephrology is consulted for acute kidney injury Past Medical History PAST MEDICAL HISTORY: CAD, CHF, CKF, COPD, DM, High Lipids, HTN, SD, Thyroid, UTI'S Past Surgical History Surgical History: CABG, PTCA Allergies: Coded Allergies: Penicillins (Verified Allergy, Unknown, 10/23/23) Home Meds Active Scripts Clopidogrel Bisulfate (Plavix) 75 Mg Tab, 1 TAB PO DAILY, #30 TAB 2 Refills Prov:DEANNE CARMONA MD 12/14/23 Spironolactone (Aldactone) 25 Mg Tab, 25 MG PO DAILY for 30 Days, #30 TAB Prov:LUIS EDUARDO LESLIE 12/14/23 Furosemide (Lasix) 40 Mg Tab, 40 MG PO QAM for 30 Days, #30 TAB 3 Refills Prov:DEANNE CARMONA MD 10/19/22 Pantoprazole Sodium Sesquihydr (Protonix) 40 Mg Tab, 40 MG PO DAILY, #30 TAB Prov:JACKIE VARGAS MD 07/30/19 Reported Medications Ovaffdrdvvz-Qdfaepvmymrd-Skuuv (Trelegy Ellipta 200-62.5-25 Mcg/INH) 1 Aer Aer, 1 PUFF INH DAILY 10/24/23 Amlodipine Besylate (Amlodipine Besylate) 5 Mg Tab, 10 MG PO DAILY, MG 11/30/22 Levothyroxine Sodium (Levothyroxine Sodium) 100 Mcg Tab, 100 MCG PO DAILY, MCG 11/30/22 Finasteride (Finasteride) 5 Mg Tab, 5 MG PO DAILY, MG 11/30/22 Carvedilol (Carvedilol) 6.25 Mg Tab, 6.25 MG PO BID, MG 11/30/22 Sacubitril-Valsartan (Entresto 97-103 mg) 1 Tab Tab, 1 TAB PO BID 10/16/22 Aspirin (Aspir-Low) 81 Mg Tab, 81 MG PO DAILY for 30 Days, MG 07/27/19 Latanoprost (LATANOPROST) 0.005 % Radha, 1 DROP EACHEYE QPM, #7.5 ML 3 Refills 07/27/19 Tamsulosin Hcl (Tamsulosin Hcl) 0.4 Mg Cap, 0.4 MG PO QPM for 30 Days, MG 07/27/19 Allopurinol (Allopurinol) 300 Mg Tab, 300 MG PO DAILY for 30 Days, MG 07/27/19 Atorvastatin Calcium (ATORVASTATIN CALCIUM) 20 Mg Tab, 20 MG PO DAILY, TAB 07/27/19 Current Medications Current Medications Medications (Trade) Dose Ordered Sig/Benjamín Route PRN Reason Start Time Stop Time Status Last Admin Atorvastatin Calcium (Lipitor) 40 mg HS PO 06/18/24 22:00 Ceftriaxone Sodium 50 ml @ 100 mls/hr DAILY@09 IV 06/18/24 09:00 06/18/24 09:37 Amlodipine Besylate (Norvasc Tablet) 10 mg DAILY PO 06/18/24 10:00 06/18/24 09:40 Aspirin (Ecotrin Enteric Coated Tablet) 81 mg DAILY PO 06/18/24 10:00 06/18/24 09:41 Clopidogrel Bisulfate (Plavix) 75 mg DAILY PO 06/18/24 10:00 06/18/24 09:41 Finasteride (Proscar Tablet) 5 mg DAILY PO 06/18/24 10:00 06/18/24 09:41 Levothyroxine Sodium (Synthroid Tablet) 100 mcg DAILY PO 06/18/24 10:00 06/18/24 09:41 Pantoprazole Sodium (Protonix Tablet) 40 mg DAILY PO 06/18/24 10:00 06/18/24 09:40 Tamsulosin HCl (Flomax) 0.4 mg QPM PO 06/18/24 18:00 Diagnostic Test (Pha) (Accu-Chek Comfort Curve T) 1 strip ACHS 06/18/24 07:00 06/18/24 11:21 Insulin Human Regular (InsuLIN R) ACHS SC 06/18/24 07:00 06/18/24 11:38 Dextrose 50 ml UD PRN IV Blood Sugar LESS THAN 60 06/18/24 06:15 Heparin Sodium (Porcine) 5,000 units Q12HR SC 06/18/24 10:00 Ergocalciferol (Vitamin D 50,000 Unit) 50,000 unit Q7D PO 06/18/24 08:00 06/18/24 09:41 Acetaminophen/ Hydrocodone Bitart ([place] 5/325MG Tab) 1 tab Q6HPRN PRN PO MODERATE PAIN (4-6 PAIN SCALE) 06/18/24 10:00 06/18/24 11:12 Morphine Sulfate 1 mg Q4HP PRN IV SEVERE PAIN (7-10 PAIN SCALE) 06/18/24 10:00 06/18/24 11:44 Sodium Chloride 1,000 ml @ 75 mls/hr [id number] IV 06/18/24 11:00 UNV Sodium Chloride 250 ml @ 60 mls/hr Q4H10M IV 06/18/24 11:15 UNV Sodium Chloride 1,000 ml @ 200 mls/hr Q5H IV 06/18/24 12:15 UNV Family History: Diabetes mellitus G8 FATHER Review of Systems All 12 item review of systems reviewed with the patient nonsignificant except what is mentioned in the history of present illness H&P Exam Vital Signs/I&O Vital Sign Date Time Temp Pulse Resp B/P (MAP) Pulse Ox O2 Delivery O2 Flow Rate FiO2 06/18/24 12:19 68 16 105/48 06/18/24 12:00 97 06/18/24 08:30 Room Air* 0 21 06/17/24 20:00 97.9 97.9 Intake and Output 06/17/24 06/18/24 18:59 06:59 Intake Total 500 ml Output Total 880 ml Balance -380 ml Intake IV Total 500 ml Output Urine Total 880 ml Physical Exam Awake and alert Lungs clear to auscultation bilaterally Cardiac exam regular rate and rhythm GI soft nontender normal Extremities no clubbing cyanosis or edema Neuro nonfocal Labs/Diagnostic Data Labs/Diagnostic Data Laboratory Tests Test 06/18/24 11:36 06/18/24 07:09 06/18/24 04:34 06/18/24 01:42 Range/Units POC Glucose 244 H 161 H 70-106 mg/dl Sodium Level 140 136-145 mmol/L Potassium Level 4.6 3.5-5.1 mmol/L Chloride Level 100 98-107 mmol/L Carbon Dioxide Level 29 20-31 mmol/L Anion Gap 11 5-15 Blood Urea Nitrogen 100 *H 9-23 mg/dL Creatinine 2.51 H 0.700-1.30 mg/dL Glomerular Filtration Rate Calc 25 >90 mL/min BUN/Creatinine Ratio 39.8 H 10.0-20.0 Serum Glucose 152 H 74-106 mg/dL Calcium Level 11.4 H 8.7-10.4 mg/dL Phosphorus Level 4.1 2.4-5.1 mg/dL Total Bilirubin 0.7 0.2-1.0 mg/dL Aspartate Amino Transferase (AST) 18 13-40 U/L Alanine Aminotransferase (ALT) 13 7-40 U/L Alkaline Phosphatase 106 46-116 U/L Total Protein 7.3 5.7-8.2 g/dL Albumin 4.3 3.2-4.8 g/dL Parathyroid Hormone (Intact) 35.7 18.4-80.1 pg/mL Urine Color Light-yellow Yellow Urine Clarity Turbid H Clear Urine pH 6.5 5.0-9.0 Urine Specific [place] 1.012 1.001-1.035 Urine Protein Trace H Negative Urine Ketones Negative Negative Urine Blood Trace H Negative /uL Urine Nitrite Negative Negative Urine Bilirubin Negative Negative Urine Urobilinogen Normal Negative mg/dL Urine Leukocyte Esterase 3+ Negative /uL Urine RBC 2 0 - 3 /hpf Urine WBC 534 0 - 3 /hpf Urine Squamous Epithelial Cells Few <5 /hpf Urine Bacteria Few H None Seen /hpf Urine Creatinine 78.90 30.0-125.0 mg/dL Urine Sodium 47 40-220 mmol/L Urine Glucose Normal Normal mg/dL Urine Total Protein 36.4 H 1-14 mg/dL Urine Opiates Screen Pos NEGATIVE Urine Fentanyl Screen Neg NEGATIVE Urine Barbiturates Screen Neg NEGATIVE Urine Phencyclidine Screen Neg NEGATIVE Urine Amphetamines Screen Neg NEGATIVE Urine Benzodiazepines Screen Neg NEGATIVE Urine Cocaine Screen Neg NEGATIVE Urine Cannabinoids Screen Neg NEGATIVE Test 06/17/24 22:33 06/17/24 19:48 06/17/24 18:36 Range/Units Troponin I High Sensitivity 12 11 12 </=54 ng/L Thyroid Stimulating Hormone (TSH) 2.99 0.55-4.78 uIU/mL White Blood Count 10.1 4.4-10.8 10^3/uL Red Blood Count 5.14 4.5-5.90 10^6/uL Hemoglobin 16.1 13.5-17.5 g/dL Hematocrit 48.5 41.0-53.0 % Mean Corpuscular Volume 94.4 80.0-100.0 fL Mean Corpuscular Hemoglobin 31.4 28.0-32.0 pg Mean Corpuscular Hemoglobin Concent 33.2 32.0-36.0 g/dL Red Cell Distribution Width 19.0 H 11.8-14.3 % Platelet Count 245 140-450 10^3/uL Mean Platelet Volume 9.0 6.9-10.8 fL Neutrophils (%) (Auto) 73.7 37.0-80.0 % Lymphocytes (%) (Auto) 13.8 10.0-50.0 % Monocytes (%) (Auto) 9.1 0.0-12.0 % Eosinophils (%) (Auto) 2.7 0.0-7.0 % Basophils (%) (Auto) 0.7 0.0-2.0 % Neutrophils # (Auto) 7.4 1.6-8.6 10 ^3/uL Lymphocytes # (Auto) 1.4 0.4-5.4 10 ^3/uL Monocytes # (Auto) 0.9 0-1.3 10 ^3/uL Eosinophils # (Auto) 0.3 0-0.8 10 ^3/uL Basophils # (Auto) 0.1 0-0.2 10 ^3/uL Nucleated Red Blood Cells 0.0 % Sodium Level 137 136-145 mmol/L Potassium Level 4.8 3.5-5.1 mmol/L Chloride Level 99 98-107 mmol/L Carbon Dioxide Level 27 20-31 mmol/L Anion Gap 11 5-15 Blood Urea Nitrogen 98 *H 9-23 mg/dL Creatinine 2.66 H 0.700-1.30 mg/dL Glomerular Filtration Rate Calc 23 >90 mL/min BUN/Creatinine Ratio 36.8 H 10.0-20.0 Serum Glucose 155 H 74-106 mg/dL Hemoglobin A1c 6.9 H <5.7 % A1C Calcium Level 11.7 H 8.7-10.4 mg/dL Magnesium Level 2.2 1.6-2.6 mg/dL Total Bilirubin 0.7 0.2-1.0 mg/dL Aspartate Amino Transferase (AST) 15 13-40 U/L Alanine Aminotransferase (ALT) 14 7-40 U/L Alkaline Phosphatase 111 46-116 U/L B-Type Natriuretic Peptide 60.50 0-100 pg/mL Total Protein 7.6 5.7-8.2 g/dL Albumin 4.4 3.2-4.8 g/dL Vitamin B12 Level 664 211-911 pg/mL Vitamin D 25-Hydroxy 32.4 30.0-100 ng/mL Assessment Acute kidney injury superimposed Chronic Kidney Disease secondary to hemodynamic mediated Hypercalcemia due to dehydration COPD Diabetes mellitus type 2 Hypertension Chest pain Recommendations Closely monitor fluid and electrolytes Avoid nephrotoxic medications Strict I&Os Gentle IV fluid hydration Check 25 hydroxyvitamin D, phosphorus and PTH Check kidney ultrasound Blood pressure control Insulin sliding scale Cardiology consult We will continue to follow Patient seen and examined by myself. I discussed my plan of care with the patient, his and the primary nurse at the bedside I would like to thank Dr. Horne for the consult, will follow up Plan discussed with: Patient, Spouse ELSI WALDROP MD Jun 18, 2024 11:06
[2024-06-18] MEDS: HYDROcodone-ACET 5/325MG TAB PO PRN (11:12)
[2024-06-18] MEDS: MORPHINE SULFATE INJ 2 MG/ml SYRG IV PRN (11:44)
--- NOTE | 2024-06-18 12:15 | DVHINCON2 ---
Date Seen: Jun 18, 2024 Referring Physician MD Ozzie resident Reason for Consultation Unstable angina, status post CABG History of Present Illness This is an 83-year-old male patient who presents to the emergency room with chief complaint of chest pain and left arm pain. At the time of assessment, the patient is having periods of confusion. Patient's is at bedside and able to answer all questions appropriately. Per patient's , at approximately 3:30 p.m. yesterday the patient started complaining of chest pain. She states he described it as unprovoked, sharp in nature, and midsternal without radiation. The patient's then proceeded to call emergency medical services and the patient was brought to the emergency room for further evaluation. When asked if he is still experiencing the chest pain, patient replies yes but keeps pointing to left arm. According to the patient's , the patient suffered a fall and broke his left elbow last month, and did not have any kind of orthopedic intervention. She reports that for the past six weeks, the patient has been experiencing excruciating pain to his left arm. She also reports that the patient was on hospice care prior to emergency room arrival. Cardiology is now being consulted for chest pain. Initial twelve lead electrocardiogram reveals sinus rhythm with right bundle branch block, PVCs, and ST segment changes to lateral leads (of note, poor quality EKG). Initial serial troponin levels have been negative. Significant past medical history includes congestive heart failure, coronary artery disease status post triple-vessel CABG (2013), multiple PTCAs with 4 VIVI, PAD status post angioplasty with 3 peripheral stents, myocardial infarction in 2019, hypertension, hyperlipidemia, bilateral endarterectomy, COPD on home O2, thyroid disease, type 2 diabetes mellitus, GERD, BPH, urinary tract infections, history of tobacco use, and morbid obesity. The patient reports his primary heel nail rasper is . Past Medical History Past medical history reviewed. No other significant than mentioned above. Past Surgical History Triple-vessel bypass CABG in 2013 Bilateral endarterectomy in 2013 Family History: Diabetes mellitus G8 FATHER Family History Family history reviewed. Social History Patient has a 40 pack-year history, states he no longer smokes Patient denies any illicit drug use Patient denies any use Allergies: Coded Allergies: Penicillins (Verified Allergy, Unknown, 10/23/23) Home Meds Active Scripts Clopidogrel Bisulfate (Plavix) 75 Mg Tab, 1 TAB PO DAILY, #30 TAB 2 Refills Prov:DEANNE CARMONA MD 12/14/23 Spironolactone (Aldactone) 25 Mg Tab, 25 MG PO DAILY for 30 Days, #30 TAB Prov:LUIS EDUARDO LESLIE 12/14/23 Furosemide (Lasix) 40 Mg Tab, 40 MG PO QAM for 30 Days, #30 TAB 3 Refills Prov:DEANNE CARMONA MD 10/19/22 Pantoprazole Sodium Sesquihydr (Protonix) 40 Mg Tab, 40 MG PO DAILY, #30 TAB Prov:JACKIE VARGAS MD 07/30/19 Reported Medications Tiaxbparnjb-Ujzrugjdauzs-Qqkmb (Trelegy Ellipta 200-62.5-25 Mcg/INH) 1 Aer Aer, 1 PUFF INH DAILY 10/24/23 Amlodipine Besylate (Amlodipine Besylate) 5 Mg Tab, 10 MG PO DAILY, MG 11/30/22 Levothyroxine Sodium (Levothyroxine Sodium) 100 Mcg Tab, 100 MCG PO DAILY, MCG 11/30/22 Finasteride (Finasteride) 5 Mg Tab, 5 MG PO DAILY, MG 11/30/22 Carvedilol (Carvedilol) 6.25 Mg Tab, 6.25 MG PO BID, MG 11/30/22 Sacubitril-Valsartan (Entresto 97-103 mg) 1 Tab Tab, 1 TAB PO BID 10/16/22 Aspirin (Aspir-Low) 81 Mg Tab, 81 MG PO DAILY for 30 Days, MG 07/27/19 Latanoprost (LATANOPROST) 0.005 % Radha, 1 DROP EACHEYE QPM, #7.5 ML 3 Refills 07/27/19 Tamsulosin Hcl (Tamsulosin Hcl) 0.4 Mg Cap, 0.4 MG PO QPM for 30 Days, MG 07/27/19 Allopurinol (Allopurinol) 300 Mg Tab, 300 MG PO DAILY for 30 Days, MG 07/27/19 Atorvastatin Calcium (ATORVASTATIN CALCIUM) 20 Mg Tab, 20 MG PO DAILY, TAB 07/27/19 Home Meds Home medications reviewed. Current Medications Current Medications Medications (Trade) Dose Ordered Sig/Benjamín Route PRN Reason Start Time Stop Time Status Last Admin Atorvastatin Calcium (Lipitor) 40 mg HS PO 06/18/24 22:00 Ceftriaxone Sodium 50 ml @ 100 mls/hr DAILY@09 IV 06/18/24 09:00 06/18/24 09:37 Amlodipine Besylate (Norvasc Tablet) 10 mg DAILY PO 06/18/24 10:00 06/18/24 09:40 Aspirin (Ecotrin Enteric Coated Tablet) 81 mg DAILY PO 06/18/24 10:00 06/18/24 09:41 Clopidogrel Bisulfate (Plavix) 75 mg DAILY PO 06/18/24 10:00 06/18/24 09:41 Finasteride (Proscar Tablet) 5 mg DAILY PO 06/18/24 10:00 06/18/24 09:41 Levothyroxine Sodium (Synthroid Tablet) 100 mcg DAILY PO 06/18/24 10:00 06/18/24 09:41 Pantoprazole Sodium (Protonix Tablet) 40 mg DAILY PO 06/18/24 10:00 06/18/24 09:40 Tamsulosin HCl (Flomax) 0.4 mg QPM PO 06/18/24 18:00 Diagnostic Test (Pha) (Accu-Chek Comfort Curve T) 1 strip ACHS 06/18/24 07:00 06/18/24 11:21 Insulin Human Regular (InsuLIN R) ACHS SC 06/18/24 07:00 06/18/24 11:38 Dextrose 50 ml UD PRN IV Blood Sugar LESS THAN 60 06/18/24 06:15 Heparin Sodium (Porcine) 5,000 units Q12HR SC 06/18/24 10:00 Ergocalciferol (Vitamin D 50,000 Unit) 50,000 unit Q7D PO 06/18/24 08:00 06/18/24 09:41 Acetaminophen/ Hydrocodone Bitart ([place] 5/325MG Tab) 1 tab Q6HPRN PRN PO MODERATE PAIN (4-6 PAIN SCALE) 06/18/24 10:00 06/18/24 11:12 Morphine Sulfate 1 mg Q4HP PRN IV SEVERE PAIN (7-10 PAIN SCALE) 06/18/24 10:00 06/18/24 11:44 Sodium Chloride 1,000 ml @ 75 mls/hr [id number] IV 06/18/24 11:00 UNV Sodium Chloride 250 ml @ 60 mls/hr Q4H10M IV 06/18/24 11:15 UNV Sodium Chloride 1,000 ml @ 200 mls/hr Q5H IV 06/18/24 12:15 UNV Review of Systems Constitutional: No symptom reported Ears, Nose, & Throat: No symptom reported Eyes: No symptom reported Neurological: No symptoms reported Pulmonary/Respiratory: No symptoms reported Cardiovascular: Chest pain Gastrointestinal: No symptom reported Genitourinary: No symptom reported Musculoskeletal: Left arm pain Skin: No symptom reported Psychiatric: No symptom reported Endocrine: No symptom reported Hematologic/Lymphatic: No symptom reported Vital Signs Vital Signs Date Time Temp Pulse Resp B/P (MAP) Pulse Ox O2 Delivery O2 Flow Rate FiO2 06/18/24 11:44 89 18 116/67 06/18/24 08:30 99 Room Air* 0 21 06/17/24 20:00 97.9 97.9 Physical Exam General Appearance: Cooperative. Morbidly obese Pulmonary/Respiratory: Clear, bilateral breaths sounds. Cardiovascular/Chest: Regular rate and rhythm. Peripheral Pulses: 2+ Radial (R). 2+ Radial (L). 2+ Pedal (R). 2+ Pedal (L) Abdominal Exam: Normal bowel sounds. Ankle Exam: 2+ pitting edema Lower extremities: 2+ pitting edema Neuro/Mental Status: A/OX3, coherent. Periods of confusion Thoughts/Psych: Normal thought pattern. Appropriate mood and affect. Good judgment and insight. Appearance: No acute distress. Skin Exam: Normal inspection. Normal color. Warm and dry. Labs/Diagnostic Data Labs Test 06/18/24 11:36 06/18/24 04:34 06/18/24 01:42 06/17/24 22:33 Range/Units POC Glucose 244 H 70-106 mg/dl Sodium Level 140 136-145 mmol/L Potassium Level 4.6 3.5-5.1 mmol/L Chloride Level 100 98-107 mmol/L Carbon Dioxide Level 29 20-31 mmol/L Anion Gap 11 5-15 Blood Urea Nitrogen 100 *H 9-23 mg/dL Creatinine 2.51 H 0.700-1.30 mg/dL Glomerular Filtration Rate Calc 25 >90 mL/min BUN/Creatinine Ratio 39.8 H 10.0-20.0 Serum Glucose 152 H 74-106 mg/dL Calcium Level 11.4 H 8.7-10.4 mg/dL Phosphorus Level 4.1 2.4-5.1 mg/dL Total Bilirubin 0.7 0.2-1.0 mg/dL Aspartate Amino Transferase (AST) 18 13-40 U/L Alanine Aminotransferase (ALT) 13 7-40 U/L Alkaline Phosphatase 106 46-116 U/L Total Protein 7.3 5.7-8.2 g/dL Albumin 4.3 3.2-4.8 g/dL Parathyroid Hormone (Intact) 35.7 18.4-80.1 pg/mL Urine Color Light-yellow Yellow Urine Clarity Turbid H Clear Urine pH 6.5 5.0-9.0 Urine Specific [place] 1.012 1.001-1.035 Urine Protein Trace H Negative Urine Ketones Negative Negative Urine Blood Trace H Negative /uL Urine Nitrite Negative Negative Urine Bilirubin Negative Negative Urine Urobilinogen Normal Negative mg/dL Urine Leukocyte Esterase 3+ Negative /uL Urine RBC 2 0 - 3 /hpf Urine WBC 534 0 - 3 /hpf Urine Squamous Epithelial Cells Few <5 /hpf Urine Bacteria Few H None Seen /hpf Urine Creatinine 78.90 30.0-125.0 mg/dL Urine Sodium 47 40-220 mmol/L Urine Glucose Normal Normal mg/dL Urine Total Protein 36.4 H 1-14 mg/dL Urine Opiates Screen Pos NEGATIVE Urine Fentanyl Screen Neg NEGATIVE Urine Barbiturates Screen Neg NEGATIVE Urine Phencyclidine Screen Neg NEGATIVE Urine Amphetamines Screen Neg NEGATIVE Urine Benzodiazepines Screen Neg NEGATIVE Urine Cocaine Screen Neg NEGATIVE Urine Cannabinoids Screen Neg NEGATIVE Troponin I High Sensitivity 12 </=54 ng/L Thyroid Stimulating Hormone (TSH) 2.99 0.55-4.78 uIU/mL Test 06/17/24 18:36 Range/Units White Blood Count 10.1 4.4-10.8 10^3/uL Red Blood Count 5.14 4.5-5.90 10^6/uL Hemoglobin 16.1 13.5-17.5 g/dL Hematocrit 48.5 41.0-53.0 % Mean Corpuscular Volume 94.4 80.0-100.0 fL Mean Corpuscular Hemoglobin 31.4 28.0-32.0 pg Mean Corpuscular Hemoglobin Concent 33.2 32.0-36.0 g/dL Red Cell Distribution Width 19.0 H 11.8-14.3 % Platelet Count 245 140-450 10^3/uL Mean Platelet Volume 9.0 6.9-10.8 fL Neutrophils (%) (Auto) 73.7 37.0-80.0 % Lymphocytes (%) (Auto) 13.8 10.0-50.0 % Monocytes (%) (Auto) 9.1 0.0-12.0 % Eosinophils (%) (Auto) 2.7 0.0-7.0 % Basophils (%) (Auto) 0.7 0.0-2.0 % Neutrophils # (Auto) 7.4 1.6-8.6 10 ^3/uL Lymphocytes # (Auto) 1.4 0.4-5.4 10 ^3/uL Monocytes # (Auto) 0.9 0-1.3 10 ^3/uL Eosinophils # (Auto) 0.3 0-0.8 10 ^3/uL Basophils # (Auto) 0.1 0-0.2 10 ^3/uL Nucleated Red Blood Cells 0.0 % Hemoglobin A1c 6.9 H <5.7 % A1C Magnesium Level 2.2 1.6-2.6 mg/dL B-Type Natriuretic Peptide 60.50 0-100 pg/mL Vitamin B12 Level 664 211-911 pg/mL Vitamin D 25-Hydroxy 32.4 30.0-100 ng/mL Assessment Chest pain, likely noncardiac Acute on chronic decompensated HFimEF, NYHA class III Ischemic cardiomyopathy Coronary artery disease status post triple-vessel CABG and multiple PTCAs x4 VIVI (on Brilinta and Aspirin) PAD status post angioplasty with peripheral stents (on Plavix and Aspirin) Myocardial infarction in 2019 Hypertension Hyperlipidemia Acute kidney injury Anterior elbow dislocation Thyroid disease History of tobacco use Morbid obesity Plan/Recommendation We will continue with the following plan/recommendations (Dr. Huynh): * Echocardiogram reveals EF 55% (previous echo from 10/16/22 showed EF 40%) * GDMT for CHF as tolerated by patient * Strict intake and output, daily weights, maintain fluid restriction * Avoid SGLT2i's given frequent urinary tract infections * Preload and afterload reduction * Continue dual antiplatelet therapy, Plavix and aspirin * BP control * Lipid-lowering agent; statin therapy Patient seen and examined at bedside with . Given negative troponin level, clinical presentation, and twelve lead electrocardiogram, doubt ACS. There is no further inpatient cardiac workup indicated at this time. Patient to follow up with his heel nail rasper in the outpatient setting in 1-2 weeks post discharge. Thank you for allowing us to care for this patient. Please call with any questions or concerns. Critical care time spent: 44 minutes This medical document was created using an electronic medical record system with voice recognition software and computerized dictation system. Although this document has been carefully reviewed, there might still be some phonetic and typographical errors. Occasional wrong-word or ``sound-alike substitutions may have occurred due to the inherent limitations of voice recognition software. These areas are purely typographical due to imperfections of the software programs and do not reflect any compromise in the patient's medical care. Please read the chart carefully and recognize, using context, where these substitutions have occurred. Plan discussed with: Patient, Spouse NYHA Physical activity limitations: Class3(Marked) ordinary (activity causes symtoms) Date of Service: Jun 18, 2024 Billing Provider: DESTINY HUYNH MD Cardiology Common Codes: 72294-[id number] INP/OBS CARE (High) Cardiology Consultation Codes: [id number] CONSULT <45MIN KIYA RUIZ Jun 18, 2024 12:15
--- NOTE | 2024-06-18 12:16 | DVHSR ---
APPROVED REPORT EXAM: Two-dimensional and M-mode echocardiogram with Doppler and color Doppler. Blood Pressure: 143/81 mmHg INDICATION Chest Pain RISK FACTORS Height: 70, Weight: 220 DIMENSIONS LVDd5.5 (3.8-5.7cm)LA (2D) (1.9-4.0cm)Aortic Root3.7 (2.0-3.7cm) LVDs4.3 (2.5-4.0cm)LA (MM) (1.9-4.0cm)Aortic Cusp Exc1.0 (1.5-2.0cm) EF (%) 55.0 (55-70%)Rt. Atrium (1.9-4.0cm)Asc. Aorta cm Mitral Valve MitralMitral Stenosis E wave0.52m/sMV Mean GR.mmHg A wave0.77m/sMV Peak GR.mmHg E/A ratio0.72D MVAcm2 DECEL [id number] 1/2 [id number] IVRTmsDop MVA2.53cm2 Aortic Valve Aortic ValveAortic Stenosis V10.77m/Damien Mean GR.4mmHg V21.42m/Damien Peak GR.8mmHg LVOT Diameter2.4 (1.8-2.4cm)Doppler AVA2.45cm2 Tricuspid Valve TR Velocity2.65m/s [id number] LEFT VENTRICLE The left ventricle is of normal size. Ejection fraction is likely normal and estimated at 55%. Endo cardial definition is poor and is inadequate to assess for wall motion abnormalities. There is a gra de diastolic dysfunction. E to E prime ratio is in the indeterminate range. RIGHT VENTRICLE The right ventricle is mildly dilated in size. Right ventricular systolic function is preserved. ATRIA Both atria are mildly dilated in size. MITRAL VALVE Normal structure and function. No significant mitral regurgitation. PULMONIC VALVE Not well visualized. TRICUSPID VALVE Not well visualized. There is no significant regurgitation. PA systolic pressure estimated at 35 mm Hg. AORTIC VALVE The leaflets appear to be mildly calcified. No significant stenosis or regurgitation. GREAT VESSELS Not well visualized. PERICARDIAL EFFUSION No significant effusion. The IVC is of normal size and collapses normally with inspiration. Other Information Technically limited study due to body habitus and patient position. Patient was unable to turn on hi s side due to broken left elbow. Conclusion The study is technically difficult. The left ventricle is of normal size and likely with normal systolic function. The study is inadequate to assess for wall motion abnormalities. The right ventricular appears to be mildly dilated in size with a preserved systolic function. Mildly calcified aortic valve with no significant stenosis. PA systolic pressure is estimated at 35 mm Hg. No significant effusion.
--- NOTE | 2024-06-18 13:08 | ECG ---
[facility] Test Date: 2024-06-17 Test Time: 20:03:51 Pat Name: MEREDITH GOYAL Department: ER Room: [address] [place] [address] A Gender: M Visitor Use Assistant: : 1940 Requested By: FRENCH CONTI Order Number: [id number] Reading MD: Jonathon Moreno Measurements Intervals [place] Rate: 80 P: 51 FL: 48 QRS: -63 QRSD: 131 T: 93 QT: 398 QTc: 460 Interpretive Statements Sinus rhythm Ventricular premature complex Short FL interval RBBB and LAFB Inferior infarct, old Lateral leads are also involved Electronically Signed On 06-18-2024 17:55:50 PST by Jonathon Moreno Please click the below link to view image of tracing.
[2024-06-18] MEDS: SODIUM CHLORIDE 0.9% 250 ML IV SCH (17:33)
[2024-06-18] MEDS: SOD CHL 0.45% 1,000 ML IV SCH (17:33)
[2024-06-18] MEDS: SODIUM CHLORIDE 0.9% 1,000 ML IV SCH (17:34)
[2024-06-18] MEDS: AZITHROMYCIN 250 MG TAB PO ONE (17:45)
[2024-06-18] MEDS: TAMSULOSIN HYDROCHLORIDE 0.4 MG CAP PO SCH (18:16)
--- NOTE | 2024-06-18 18:22 | DVHPNRES ---
Progress Note Date Seen: Jun 18, 2024 Resident Creating Document: IZZY TURCIOS SANJEEV Has the PT tested + for MRSA If YES, has PT been informed?: Yes Medical Necessity Reason Pt with a Central, PICC or Fol: No Subjective Review of Systems This is an 83-year-old male with a past medical history of hypertension, hyperlipidemia, COPD, CHF, CAD with s/p CABG, CKD, and gout, who presented to the ED with a chief complaint of chest pain and shortness of breath for 1 day prior to this admission. The patient stated that the chest pain was sharp, stabbing, 8/10 in intensity, continuous, non-radiating, and associated with shortness of breath. The patient was in hospice previously before coming to the hospital. The patient denies fever, flu-like symptoms, sick contacts, blurring of vision, dizziness, diaphoresis, abdominal pain, nausea, vomiting, or any change in bowel and bladder habits. PMHx: Hypertension, hyperlipidemia, COPD (on 2 L of oxygen at home), CHF, coronary artery disease, CKD, gout, PSHx: CABG, PTCA Family history: Noncontributory Social history: Patient is bed-bound, on home hospice care, denies smoking Allergic history: Noncontributory Today, patient seen and examined at the bedside. Patient is feeling better since admission, but still complaining of shortness of breaths and left elbow pain. Patient reports: No new complaints, Feels better Changes from previous H/P or p: Changes Objective vital signs Vital Sign Date Time Temp Pulse Resp B/P (MAP) Pulse Ox O2 Delivery O2 Flow Rate FiO2 06/18/24 17:32 97.4 73 16 138/96 (110) 97 97.4 06/18/24 08:30 Room Air* 0 21 Total Intake and Output 06/17/24 06/17/24 06/18/24 15:00 23:00 07:00 Intake Total 500 ml Output Total 880 ml Balance -380 ml medications Current Medications Medications Dose Ordered Sig/Benjamín Route Start Time Stop Time Status Last Admin Dose Admin Atorvastatin Calcium 40 mg HS PO 06/18/24 22:00 Ceftriaxone Sodium 50 ml @ 100 mls/hr DAILY@09 IV 06/18/24 09:00 06/18/24 09:37 100 MLS/HR Amlodipine Besylate 10 mg DAILY PO 06/18/24 10:00 06/18/24 09:40 10 MG Aspirin 81 mg DAILY PO 06/18/24 10:00 06/18/24 09:41 81 MG Clopidogrel Bisulfate 75 mg DAILY PO 06/18/24 10:00 06/18/24 09:41 75 MG Finasteride 5 mg DAILY PO 06/18/24 10:00 06/18/24 09:41 5 MG Levothyroxine Sodium 100 mcg DAILY PO 06/18/24 10:00 06/18/24 09:41 100 MCG Pantoprazole Sodium 40 mg DAILY PO 06/18/24 10:00 06/18/24 09:40 40 MG Tamsulosin HCl 0.4 mg QPM PO 06/18/24 18:00 Diagnostic Test (Pha) 1 strip ACHS 06/18/24 07:00 06/18/24 17:00 1 STRIP Insulin Human Regular ACHS SC 06/18/24 07:00 06/18/24 17:40 2 UNITS Dextrose 50 ml UD PRN IV 06/18/24 06:15 Heparin Sodium (Porcine) 5,000 units Q12HR SC 06/18/24 10:00 Ergocalciferol 50,000 unit Q7D PO 06/18/24 08:00 06/18/24 09:41 50,000 UNIT Acetaminophen/ Hydrocodone Bitart 1 tab Q6HPRN PRN PO 06/18/24 10:00 06/18/24 11:12 1 TAB Morphine Sulfate 1 mg Q4HP PRN IV 06/18/24 10:00 06/18/24 11:44 1 MG Sodium Chloride 1,000 ml @ 75 mls/hr [id number] IV 06/18/24 11:00 Sodium Chloride 250 ml @ 60 mls/hr Q4H10M IV 06/18/24 11:15 Sodium Chloride 1,000 ml @ 200 mls/hr Q5H IV 06/18/24 12:15 06/18/24 17:39 200 MLS/HR Azithromycin 500 mg DAILY PO 06/19/24 10:00 Metoprolol Succinate 25 mg DAILY PO 06/19/24 10:00 Examination General Appearance: Alert, Oriented to place and person, disoriented to time, in moderate respiratory distress HEENT: Atraumatic, PERRLA, EOMI, Mucous membrane moist/pink Respiratory: Bilateral mild crackles Cardiovascular: Regular rate, Normal S1, Normal S2, No murmurs, no chest wall tenderness Abdominal: Normal bowel sounds, Soft, No tenderness, No hepatospenomegaly, No masses Extremities: Left elbow pain, with decreased range of motion Skin: No rashes, No breakdown, No significant lesion Neuro: Patient is bed-bound, could not perform complete neurological exam Psych/Mental Status: Mental status NL, Mood NL laboratory and microbiology Laboratory Tests 06/18/24 04:34 06/17/24 18:36 Test 06/18/24 04:34 Range/Units Serum Glucose 152 H 74-106 mg/dL Labs and/or images reviewed: Labs reviewed by me, Image(s) reviewed by me Problem List/Assessment/Plan Problem List/Assessment/Plan Acute metabolic encephalopathy, likely due to respiratory failure/sepsis Acute on chronic hypoxic/hypercarbic respiratory failure likely due to COPD exacerbation/pneumonia Acute COPD exacerbation Pneumonia, likely due to Gram-positive Gram-negative viral Sepsis, likely due to pneumonia/UTI Chest x-ray shows bilateral hyperinflated lung, flattened diaphragm, with prominent bronchovascular marking Check influenza type a, type B, COVID-19, MRSA nares screening Urine/blood/sputum culture Empiric antibiotics, azithromycin and ceftriaxone Nebulization IV fluids Acute on chronic decompensated HFimEFChest pain, likely noncardiac Acute on chronic decompensated HFimEF, NYHA class III Ischemic cardiomyopathy Coronary artery disease status post triple-vessel CABG and multiple PTCAs x4 VIVI (on Brilinta and Aspirin) PAD status post angioplasty with peripheral stents (on Plavix and Aspirin) Myocardial infarction in 2019 Chest pain, likely noncardiac EKG shows RBBB, with occasional PVCs Serial trop I level is normal Echo shows, ejection fraction 55%, previous echo from 10/16/2022 shows EF 40% Cardiology on the board Aspirin 81 mg daily Clopidogrel 75 mg daily Atorvastatin 40 mg daily UTI Urinalysis shows, UTI picture IV antibiotic Hypothyroidism continue levothyroxine Anterior elbow dislocation Elbow x-ray shows, anterior dislocation of her left elbow Orthopedics consulted DEBBIE, CKD grade 2, likely hemodynamically mediated Hypercalcemia, likely due to dehydration Nephrology on the board Obesity, patient was counseled for the lifestyle for more than 13 minutes Hyperlipidemia Continue atorvastatin Hypertension Continue amlodipine, and metoprolol Diabetes mellitus type 2 Insulin according to SS BPH Continue finasteride and tamsulosin DIET: Renal diet DVT PROPHYLAXIS: Lovenox GI PROPHYLAXIS:: Protonix BOWEL REGIMEN: Colace 100 mg p.r.n. CODE STATUS: Goal of care discussed for more than 25 minutes with the of the patient, full code DISPOSITION: Telemetry Patient's status discussed with the patient and the on the bedside. Case discussed with Dr. Hebert Plan discussed with: Patient, Spouse, Other (RN) My Orders My Orders Orders - IZZY TURCIOS RESDIPRECIOUS Procedure Category Date Status Time Ergocalciferol PHA 06/18/24 In Process (Vitamin D 50,000 08:00 Complete Blood Count LAB 06/19/24 Verified 04:00 Comprehensive LAB 06/19/24 Verified Metabolic Panel 04:00 Hydrocodone-Acet PHA 06/18/24 In Process 5/325mg Tab ([place] 10:00 Morphine Sulfate PHA 06/18/24 In Process Injection 10:00 L Elbow 2 View Xray XY 06/18/24 Resulted 09:59 Sodium Chloride 0.9% PHA 06/18/24 In Process 11:15 Sodium Chloride 0.9% PHA 06/18/24 In Process 12:15 Respiratory Culture TYLER 06/18/24 Logged W/ Gs 14:23 Respiratory Syncytial LAB 06/18/24 Logged Virus Ag 14:23 Mrsa Screen TYLER 06/18/24 Logged 14:23 Azithromycin Tablet PHA 06/19/24 In Process (Zithromax Tablet) 10:00 Date of Service: Jun 18, 2024 Billing Provider: RENA HERNANDEZ MD Common Visit Codes: [id number] INP/OBS CARE(HIGH) IZZY TURCIOS RESDIENT Jun 18, 2024 18:22 RENA HERNANDEZ MD Jun 21, 2024 09:46
[2024-06-18] MEDS: ONDANSETRON HCL 4 MG/2 ML VIAL IV ONE (18:47)
[2024-06-18 18:59] VITALS: BP 147/103; PULSE 88; RESP 20; TEMP 97.6; O2SAT 96
[2024-06-18] MEDS: MORPHINE SULFATE 4 MG/ML SYR/VIAL IV ONE (19:01)
[2024-06-18] MEDS: PROPOFOL 10 MG/ML 20 ML IV ONE (19:38)
[2024-06-18 20:54] VITALS: BP 147/103; PULSE 88; RESP 20; TEMP 97.6; O2SAT 96
[2024-06-18 21:24] LABS: COVID19 ANTIGEN SOFIA FIA NEGATIVE (NEGATIVE); Rapid Influenza A Negative (Negative); Rapid Influenza B Negative (Negative)
[2024-06-18] MEDS: ATORVASTATIN 20 MG TAB PO SCH (21:24)
[2024-06-19 01:00] VITALS: BP 133/63; PULSE 93; RESP 20; TEMP 97.7; O2SAT 95
--- NOTE | 2024-06-19 05:35 | DVH ---
INDICATION: DEBBIE TECHNIQUE: Multiple real-time sonographic images of the kidneys and bladder were obtained. COMPARISON: None FINDINGS: The right kidney measures 11.3 cm in length. The left kidney measures 10.2 cm in length. There is n o hydronephrosis. Mild thinning of the renal cortices. No sonographically evident cystic or solid mas s. There is mild urinary bladder wall thickening. Patient unable to void secondary to agitation. IMPRESSION: 1. Mild bilateral renal cortical atrophy 2. Possible mild urinary bladder wall thickening correlation with urinalysis is recommended.
[2024-06-19 07:28] LABS: Basophils # (auto) 0 10 ^3/uL (0-0.2); Basophils % (auto) 0.5 % (0.0-2.0); Eosinophils # (auto) 0.4 10 ^3/uL (0-0.8); Eosinophils % (auto) 4.5 % (0.0-7.0); Hematocrit 45.7 % (41.0-53.0); Hemoglobin 15.4 g/dL (13.5-17.5); Lymphocytes % (auto) 12.1 % (10.0-50.0); Mean Corpuscular Hemoglobin 31.9 pg (28.0-32.0); Mean Corpuscular Hgb Conc. 33.6 g/dL (32.0-36.0); Mean Corpuscular Volume 94.8 fL (80.0-100.0); Monocytes # (auto) 0.8 10 ^3/uL (0-1.3); Monocytes % (auto) 9.5 % (0.0-12.0); Neutrophils # (auto) 6.2 10 ^3/uL (1.6-8.6); Neutrophils % (auto) 73.4 % (37.0-80.0); Platelet Count (auto) 209 10^3/uL (140-450); Red Blood Cells 4.82 10^6/uL (4.5-5.90); White Blood Cell 8.5 10^3/uL (4.4-10.8)
[2024-06-19 07:52] LABS: Alanine Aminotransferase 12 U/L (7-40); Albumin 4.2 g/dL (3.2-4.8); Alkaline Phosphatase 106 U/L (46-116); Anion Gap 11 (5-15); Aspartate Aminotransferase 20 U/L (13-40); BUN/Creatinine Ratio 39.3 (10.0-20.0); Carbon Dioxide 25 mmol/L (20-31); Chloride 103 mmol/L (98-107); Potassium 4.3 mmol/L (3.5-5.1); Sodium 139 mmol/L (136-145)
[2024-06-19 07:53] LABS: Bilirubin, Total 0.7 mg/dL (0.2-1.0); Total Protein 7.1 g/dL (5.7-8.2)
[2024-06-19 07:59] LABS: Blood Urea Nitrogen 66 mg/dL (9-23); Glucose 146 mg/dL (74-106)
[2024-06-19 08:00] LABS: Calcium 11.3 mg/dL (8.7-10.4)
[2024-06-19 09:25] VITALS: BP 117/69; PULSE 88; RESP 14; TEMP 97.6; O2SAT 90
[2024-06-19] MEDS: METOPROLOL SUCCINATE XL 50 MG TAB PO SCH (09:38)
[2024-06-19] MEDS: AZITHROMYCIN 250 MG TAB PO SCH (09:38)
--- NOTE | 2024-06-19 09:52 | DVHPN2 ---
Progress Note Date Seen: Jun 19, 2024 Has the PT tested + for MRSA If YES, has PT been informed?: Yes Medical Necessity Reason Pt with a Central, PICC or Fol: No Subjective Patient reports: No new complaints Review of Systems: HEENT:Normal Objective vital signs Vital Sign Date Time Temp Pulse Resp B/P (MAP) Pulse Ox O2 Delivery O2 Flow Rate FiO2 06/19/24 09:38 88 117/69 06/19/24 09:25 97.6 14 90 97.6 06/18/24 20:54 Nasal Cannula* 2 28 Total Intake and Output 06/18/24 06/18/24 06/19/24 15:00 23:00 07:00 Intake Total 50 ml 1000 ml Output Total 300 ml Balance 50 ml 1000 ml -300 ml medications Current Medications Medications Dose Ordered Sig/Benjamín Route Start Time Stop Time Status Last Admin Dose Admin Atorvastatin Calcium 40 mg HS PO 06/18/24 22:00 06/18/24 21:24 40 MG Ceftriaxone Sodium 50 ml @ 100 mls/hr DAILY@09 IV 06/18/24 09:00 06/19/24 09:37 100 MLS/HR Amlodipine Besylate 10 mg DAILY PO 06/18/24 10:00 06/19/24 09:37 10 MG Aspirin 81 mg DAILY PO 06/18/24 10:00 06/18/24 09:41 81 MG Clopidogrel Bisulfate 75 mg DAILY PO 06/18/24 10:00 06/18/24 09:41 75 MG Finasteride 5 mg DAILY PO 06/18/24 10:00 06/19/24 09:38 5 MG Levothyroxine Sodium 100 mcg DAILY PO 06/18/24 10:00 06/19/24 09:38 100 MCG Pantoprazole Sodium 40 mg DAILY PO 06/18/24 10:00 06/19/24 09:38 40 MG Tamsulosin HCl 0.4 mg QPM PO 06/18/24 18:00 06/18/24 18:16 0.4 MG Diagnostic Test (Pha) 1 strip ACHS 06/18/24 07:00 06/19/24 05:38 1 STRIP Insulin Human Regular ACHS SC 06/18/24 07:00 06/18/24 21:36 2 UNITS Dextrose 50 ml UD PRN IV 06/18/24 06:15 Heparin Sodium (Porcine) 5,000 units Q12HR SC 06/18/24 10:00 06/18/24 21:31 5,000 UNITS Ergocalciferol 50,000 unit Q7D PO 06/18/24 08:00 06/18/24 09:41 50,000 UNIT Acetaminophen/ Hydrocodone Bitart 1 tab Q6HPRN PRN PO 06/18/24 10:00 06/18/24 11:12 1 TAB Morphine Sulfate 1 mg Q4HP PRN IV 06/18/24 10:00 06/18/24 23:23 1 MG Sodium Chloride 1,000 ml @ 75 mls/hr [id number] IV 06/18/24 11:00 06/19/24 00:20 75 MLS/HR Azithromycin 500 mg DAILY PO 06/19/24 10:00 06/19/24 09:38 500 MG Metoprolol Succinate 25 mg DAILY PO 06/19/24 10:00 06/19/24 09:38 25 MG Examination: GENERAL:Normal, CVS:Normal, ABDOMEN:Normal laboratory and microbiology Laboratory Tests 06/19/24 05:29 Test 06/19/24 05:29 Range/Units Serum Glucose 146 H 74-106 mg/dL Problem List/Assessment/Plan Problem List/Assessment/Plan Acute kidney injury superimposed Chronic Kidney Disease secondary to hemodynamic mediated Hypercalcemia due to dehydration COPD Diabetes mellitus type 2 Hypertension Chest pain Closely monitor fluid and electrolytes Avoid nephrotoxic medications Strict I&Os Gentle IV fluid hydration kidney ultrasound- mild atrophy otherwise unremarkable Blood pressure control Insulin sliding scale Cardiology consult Plan discussed with: Patient MELISSA TIDWELL MD Jun 19, 2024 09:52
[2024-06-19] MEDS ORDERED: AZITHROMYCIN 500MG/ 250ML 250 ML IV SCH (10:00)
--- NOTE | 2024-06-19 10:02 | DVH ---
CLINICAL INDICATION: better evalaute dislocation and c/f fracture TECHNIQUE: XY L FOREARM XRAY Comparison: None FINDINGS/IMPRESSION: : Redemonstration of elbow joint dislocation.
--- NOTE | 2024-06-19 10:10 | DVH ---
CLINICAL INDICATION: better evalaute dislocation and c/f fracture TECHNIQUE: 2 views of the left elbow and 2 views of the left forearm XY L ELBOW 2 VIEW XRAY, XY L FO REARM XRAY Comparison: XY L ELBOW 2 VIEW XRAY on DOS: 06/18/24 FINDINGS/IMPRESSION: Redemonstration of a posterior elbow dislocation. This may be partially reduced when compared with 1 although evaluation of alignment is limited without inclusion of a true lateral view. No definite associated fractures are seen. Regional soft tissue swelling.
[2024-06-19] MEDS: methylPREDNISolone SOD SUCC 40 MG/ML VL IM ONE (13:04)
[2024-06-19 13:32] VITALS: BP 90/51; PULSE 78; RESP 14; TEMP 97.5; O2SAT 98
[2024-06-19 13:43] LABS: INR 1.1 (0.9-1.15); Prothrombin Time 11.6 sec (9.3-11.8)
--- NOTE | 2024-06-19 15:47 | DVHPNRES ---
Progress Note Date Seen: Jun 19, 2024 Resident Creating Document: IZZY TURCIOS SANJEEV Has the PT tested + for MRSA If YES, has PT been informed?: Yes Medical Necessity Reason Pt with a Central, PICC or Fol: No Subjective Review of Systems This is an 83-year-old male with a past medical history of hypertension, hyperlipidemia, COPD, CHF, CAD with s/p CABG, CKD, and gout, who presented to the ED with a chief complaint of chest pain and shortness of breath for 1 day prior to this admission. The patient stated that the chest pain was sharp, stabbing, 8/10 in intensity, continuous, non-radiating, and associated with shortness of breath. The patient was in hospice previously before coming to the hospital. The patient denies fever, flu-like symptoms, sick contacts, blurring of vision, dizziness, diaphoresis, abdominal pain, nausea, vomiting, or any change in bowel and bladder habits. PMHx: Hypertension, hyperlipidemia, COPD (on 2 L of oxygen at home), CHF, coronary artery disease, CKD, gout, PSHx: CABG, PTCA Family history: Noncontributory Social history: Patient is bed-bound, on home hospice care, denies smoking Allergic history: Noncontributory Today, patient seen and examined at the bedside. Patient is feeling better since admission, but still complaining of shortness of breaths and left elbow pain. Patient reports: No new complaints, Feels better Changes from previous H/P or p: Changes Objective vital signs Vital Sign Date Time Temp Pulse Resp B/P (MAP) Pulse Ox O2 Delivery O2 Flow Rate FiO2 06/19/24 13:32 97.5 78 14 90/51 (64) 98 97.5 06/19/24 08:00 Nasal Cannula* 2 28 Total Intake and Output 06/18/24 06/18/24 06/19/24 15:00 23:00 07:00 Intake Total 50 ml 1000 ml Output Total 300 ml Balance 50 ml 1000 ml -300 ml medications Current Medications Medications Dose Ordered Sig/Benjamín Route Start Time Stop Time Status Last Admin Dose Admin Atorvastatin Calcium 40 mg HS PO 06/18/24 22:00 06/18/24 21:24 40 MG Ceftriaxone Sodium 50 ml @ 100 mls/hr DAILY@09 IV 06/18/24 09:00 06/19/24 09:37 100 MLS/HR Amlodipine Besylate 10 mg DAILY PO 06/18/24 10:00 06/19/24 09:37 10 MG Aspirin 81 mg DAILY PO 06/18/24 10:00 06/18/24 09:41 81 MG Clopidogrel Bisulfate 75 mg DAILY PO 06/18/24 10:00 06/18/24 09:41 75 MG Finasteride 5 mg DAILY PO 06/18/24 10:00 06/19/24 09:38 5 MG Levothyroxine Sodium 100 mcg DAILY PO 06/18/24 10:00 06/19/24 09:38 100 MCG Pantoprazole Sodium 40 mg DAILY PO 06/18/24 10:00 06/19/24 09:38 40 MG Tamsulosin HCl 0.4 mg QPM PO 06/18/24 18:00 06/18/24 18:16 0.4 MG Diagnostic Test (Pha) 1 strip ACHS 06/18/24 07:00 06/19/24 11:23 1 STRIP Insulin Human Regular ACHS SC 06/18/24 07:00 06/18/24 21:36 2 UNITS Dextrose 50 ml UD PRN IV 06/18/24 06:15 Heparin Sodium (Porcine) 5,000 units Q12HR SC 06/18/24 10:00 06/18/24 21:31 5,000 UNITS Ergocalciferol 50,000 unit Q7D PO 06/18/24 08:00 06/18/24 09:41 50,000 UNIT Acetaminophen/ Hydrocodone Bitart 1 tab Q6HPRN PRN PO 06/18/24 10:00 06/18/24 11:12 1 TAB Morphine Sulfate 1 mg Q4HP PRN IV 06/18/24 10:00 06/18/24 23:23 1 MG Sodium Chloride 1,000 ml @ 75 mls/hr [id number] IV 06/18/24 11:00 06/19/24 00:20 75 MLS/HR Azithromycin 500 mg DAILY PO 06/19/24 10:00 06/19/24 09:38 500 MG Metoprolol Succinate 25 mg DAILY PO 06/19/24 10:00 06/19/24 09:38 25 MG Methylprednisolone Sodium Succinate 20 mg DAILY IV 06/20/24 10:00 Examination General Appearance: Alert, Oriented to place and person, disoriented to time, in moderate respiratory distress HEENT: Atraumatic, PERRLA, EOMI, Mucous membrane moist/pink Respiratory: Bilateral mild crackles Cardiovascular: Regular rate, Normal S1, Normal S2, No murmurs, no chest wall tenderness Abdominal: Normal bowel sounds, Soft, No tenderness, No hepatospenomegaly, No masses Extremities: Left elbow pain, with decreased range of motion Skin: No rashes, No breakdown, No significant lesion Neuro: Patient is bed-bound, could not perform complete neurological exam Psych/Mental Status: Mental status NL, Mood NL laboratory and microbiology Laboratory Tests 06/19/24 05:29 Test 06/19/24 05:29 Range/Units Serum Glucose 146 H 74-106 mg/dL Microbiology Date/Time Source Procedure Growth Status 06/18/24 20:46 Nose MRSA Screen - Final Complete 06/18/24 12:57 Blood Blood Culture - Preliminary NO GROWTH AFTER 24 HOURS OF INCUBATION. Resulted Labs and/or images reviewed: Labs reviewed by me, Image(s) reviewed by me Problem List/Assessment/Plan Problem List/Assessment/Plan Acute metabolic encephalopathy, likely due to respiratory failure/sepsis Acute on chronic hypoxic/hypercarbic respiratory failure likely due to COPD exacerbation/pneumonia Acute COPD exacerbation Pneumonia, likely due to Gram-positive Gram-negative viral Sepsis, likely due to pneumonia/UTI Chest x-ray shows bilateral hyperinflated lung, flattened diaphragm, with prominent bronchovascular marking Check influenza type a, type B, COVID-19, MRSA nares screening Urine/blood/sputum culture Empiric antibiotics, azithromycin and ceftriaxone Nebulization IV fluids Acute on chronic decompensated HFimEFChest pain, likely noncardiac Acute on chronic decompensated HFimEF, NYHA class III Ischemic cardiomyopathy Coronary artery disease status post triple-vessel CABG and multiple PTCAs x4 VIVI (on Brilinta and Aspirin) PAD status post angioplasty with peripheral stents (on Plavix and Aspirin) Myocardial infarction in 2019 Chest pain, likely noncardiac EKG shows RBBB, with occasional PVCs Serial trop I level is normal Echo shows, ejection fraction 55%, previous echo from 10/16/2022 shows EF 40% Cardiology on the board Aspirin 81 mg daily Clopidogrel 75 mg daily Atorvastatin 40 mg daily UTI Urinalysis shows, UTI picture IV antibiotic Hypothyroidism continue levothyroxine Anterior elbow dislocation Elbow x-ray shows, anterior dislocation of her left elbow Orthopedics on the board DEBBIE, CKD grade 2, likely hemodynamically mediated Hypercalcemia, likely due to dehydration Nephrology on the board Ultrasound shows mild atrophy kidney Obesity, patient was counseled for the lifestyle for more than 13 minutes Hyperlipidemia Continue atorvastatin Hypertension Continue amlodipine, and metoprolol Diabetes mellitus type 2 Insulin according to SS BPH Continue finasteride and tamsulosin DIET: Renal diet DVT PROPHYLAXIS: Lovenox GI PROPHYLAXIS:: Protonix BOWEL REGIMEN: Colace 100 mg p.r.n. CODE STATUS: Goal of care discussed for more than 25 minutes with the of the patient, full code DISPOSITION: Telemetry Patient's status discussed with the patient and the on the bedside. Patient is still complained of shortness of breath, on 2 L of oxygen through nasal cannula. Case discussed with Dr. Hebert Plan discussed with: Patient, Other (RN) My Orders My Orders Orders - IZZY TURCIOS RESDIPRECIOUS Procedure Category Date Status Time Kidney US 06/19/24 Resulted 04:00 * Fibreglass Gun Hand CONS 06/18/24 Transmitted Consult 23:06 Hepatitis B Surface LAB 06/19/24 In Process Antigen 04:00 Hepatitis C Antibody LAB 06/19/24 In Process 04:00 * Wound Consult CONS 06/19/24 Transmitted Pt Request For Service PT 06/19/24 Logged 11:48 Methylprednisolone PHA 06/20/24 In Process Sod Succ (Solu Medrol 10:00 Date of Service: Jun 19, 2024 Billing Provider: RENA HERNANDEZ MD Common Visit Codes: [id number] INP/OBS CARE(HIGH) IZZY TURCIOS RESDIENT Jun 19, 2024 15:47 RENA HERNANDEZ MD Jun 21, 2024 09:53
[2024-06-19 17:15] VITALS: BP 106/59; PULSE 78; RESP 16; TEMP 97.5; O2SAT 98
[2024-06-19 20:00] VITALS: PULSE 73; RESP 19; O2SAT 95
[2024-06-19 21:00] VITALS: BP 137/64; PULSE 99; RESP 20; TEMP 97.8; O2SAT 94
[2024-06-20] VITALS (7 sets, daily range): BP systolic 101–121; BP diastolic 28–61; PULSE 77–97; RESP 16–20; TEMP 97.3–98.1; O2SAT 85–96
[2024-06-20 06:06] LABS: Alanine Aminotransferase 13 U/L (7-40); Alkaline Phosphatase 100 U/L (46-116); Anion Gap 7 (5-15); Aspartate Aminotransferase 15 U/L (13-40); BUN/Creatinine Ratio 41.2 (10.0-20.0); Bilirubin, Total 0.5 mg/dL (0.2-1.0); Carbon Dioxide 27 mmol/L (20-31); Chloride 104 mmol/L (98-107); Potassium 4.6 mmol/L (3.5-5.1); Sodium 138 mmol/L (136-145); Total Protein 6.9 g/dL (5.7-8.2)
--- NOTE | 2024-06-20 06:11 | DVHINCON2 ---
Date of service: Jun 20, 2024 Reason for Consultation Chronic left elbow dislocation History of Present Illness 83 yo M admitted for cp/sob with hx of fall 4-6 weeks ago -- he is a poor histo alissa and cant recally exact date of injury to left arm. He has been to [facility] regarding this who have rec outpatient treatment. Past Medical History Past Medical History Hypertension, hyperlipidemia, COPD , CHF, CAD , CKD, gout Past Surgical History PTCA, CABG Family History: Diabetes mellitus G8 FATHER Allergies: Coded Allergies: Penicillins (Verified Allergy, Unknown, 10/23/23) Home Meds Active Scripts Clopidogrel Bisulfate (Plavix) 75 Mg Tab, 1 TAB PO DAILY, #30 TAB 2 Refills Prov:DEANNE CARMONA MD 12/14/23 Spironolactone (Aldactone) 25 Mg Tab, 25 MG PO DAILY for 30 Days, #30 TAB Prov:LUIS EDUARDO LESLIE 12/14/23 Furosemide (Lasix) 40 Mg Tab, 40 MG PO QAM for 30 Days, #30 TAB 3 Refills Prov:DEANNE CARMONA MD 10/19/22 Pantoprazole Sodium Sesquihydr (Protonix) 40 Mg Tab, 40 MG PO DAILY, #30 TAB Prov:JACKIE VARGAS MD 07/30/19 Reported Medications Albuterol Sulfate (Albuterol Sulfate Hfa) 108 Mcg/Act Aer, 108 MCG IN UD for 25 Days, #8.5 06/18/24 Pioglitazone Hydrochloride (PIOGLITAZONE HCL) 30 Mg Tab, 1 TAB PO DAILY for 25 Days, #25 06/18/24 Sacubitril-Valsartan (Entresto 49-51 mg) 1 Tab Tab, 1 TAB PO BID for 25 Days, #50 06/18/24 Tyxkxxdmerm-Njjlzhsjrsya-Mxqda (Trelegy Ellipta 200-62.5-25 Mcg/INH) 1 Aer Aer, 1 PUFF INH DAILY for 30 Days, #60 10/24/23 Amlodipine Besylate (Amlodipine Besylate) 5 Mg Tab, 10 MG PO DAILY, MG 11/30/22 Levothyroxine Sodium (Levothyroxine Sodium) 100 Mcg Tab, 100 MCG PO DAILY, MCG 11/30/22 Finasteride (Finasteride) 5 Mg Tab, 5 MG PO DAILY, MG 11/30/22 Carvedilol (Carvedilol) 6.25 Mg Tab, 6.25 MG PO BID, MG 11/30/22 Aspirin (Aspir-Low) 81 Mg Tab, 81 MG PO DAILY for 30 Days, MG 07/27/19 Latanoprost (LATANOPROST) 0.005 % Radha, 1 DROP EACHEYE QPM for 25 Days, #2.5 07/27/19 Tamsulosin Hcl (Tamsulosin Hcl) 0.4 Mg Cap, 0.4 MG PO QPM for 30 Days, MG 07/27/19 Allopurinol (Allopurinol) 300 Mg Tab, 1 TAB PO DAILY for 25 Days, #25 07/27/19 Atorvastatin Calcium (ATORVASTATIN CALCIUM) 20 Mg Tab, 20 MG PO DAILY, TAB 07/27/19 Current Medications Current Medications Medications (Trade) Dose Ordered Sig/Benjamín Route PRN Reason Start Time Stop Time Status Last Admin Azithromycin 250 ml @ 125 mls/hr DAILY IV 06/19/24 10:00 06/18/24 14:31 DC Azithromycin (Zithromax Tablet) 500 mg DAILY PO 06/19/24 10:00 06/19/24 09:38 Metoprolol Succinate (Toprol Xl) 25 mg DAILY PO 06/19/24 10:00 06/19/24 09:38 Methylprednisolone Sodium Succinate (Solu Medrol) 40 mg DAILY IV 06/20/24 10:00 06/19/24 11:48 DC Methylprednisolone Sodium Succinate (Solu Medrol) 20 mg DAILY IV 06/20/24 10:00 Review of Systems as per HPI Vital Signs Vital Signs Date Time Temp Pulse Resp B/P (MAP) Pulse Ox O2 Delivery O2 Flow Rate FiO2 06/19/24 21:00 97.8 99 20 137/64 (88) 94 97.8 06/19/24 20:00 Nasal Cannula* 2 28 Physical Exam Lying down in bed splint in place +we/wf Labs/Diagnostic Data Labs Test 06/20/24 05:23 06/19/24 23:05 06/19/24 12:58 06/19/24 05:46 Range/Units POC Glucose 297 H 70-106 mg/dl Prothrombin Time 11.6 9.3-11.8 sec Prothrombin Time INR 1.10 0.9-1.15 Test 06/19/24 05:29 06/18/24 20:46 06/18/24 04:34 06/18/24 01:42 Range/Units Eosinophils (%) (Auto) 4.5 0.0-7.0 % Eosinophils # (Auto) 0.4 0-0.8 10 ^3/uL Basophils # (Auto) 0 0-0.2 10 ^3/uL Nucleated Red Blood Cells 0.0 % Influenza Type A Antigen Negative Negative Influenza Type B Antigen Negative Negative SARS-CoV-2 Antigen (Rapid) Negative NEGATIVE Phosphorus Level 4.1 2.4-5.1 mg/dL Parathyroid Hormone (Intact) 35.7 18.4-80.1 pg/mL Urine Color Light-yellow Yellow Urine Clarity Turbid H Clear Urine pH 6.5 5.0-9.0 Urine Specific [place] 1.012 1.001-1.035 Urine Protein Trace H Negative Urine Ketones Negative Negative Urine Blood Trace H Negative /uL Urine Nitrite Negative Negative Urine Bilirubin Negative Negative Urine Urobilinogen Normal Negative mg/dL Urine Leukocyte Esterase 3+ Negative /uL Urine RBC 2 0 - 3 /hpf Urine WBC 534 0 - 3 /hpf Urine Squamous Epithelial Cells Few <5 /hpf Urine Bacteria Few H None Seen /hpf Urine Creatinine 78.90 30.0-125.0 mg/dL Urine Sodium 47 40-220 mmol/L Urine Glucose Normal Normal mg/dL Urine Total Protein 36.4 H 1-14 mg/dL Urine Opiates Screen Pos NEGATIVE Urine Fentanyl Screen Neg NEGATIVE Urine Barbiturates Screen Neg NEGATIVE Urine Phencyclidine Screen Neg NEGATIVE Urine Amphetamines Screen Neg NEGATIVE Urine Benzodiazepines Screen Neg NEGATIVE Urine Cocaine Screen Neg NEGATIVE Urine Cannabinoids Screen Neg NEGATIVE Test 06/17/24 22:33 06/17/24 18:36 Range/Units Troponin I High Sensitivity 12 </=54 ng/L Thyroid Stimulating Hormone (TSH) 2.99 0.55-4.78 uIU/mL Hemoglobin A1c 6.9 H <5.7 % A1C Magnesium Level 2.2 1.6-2.6 mg/dL B-Type Natriuretic Peptide 60.50 0-100 pg/mL Vitamin B12 Level 664 211-911 pg/mL Vitamin D 25-Hydroxy 32.4 30.0-100 ng/mL Microbiology Date/Time Source Procedure Growth Status 06/18/24 20:46 Nose MRSA Screen - Final Complete 06/18/24 12:57 Blood Blood Culture - Preliminary NO GROWTH AFTER 24 HOURS OF INCUBATION. Resulted Plan/Recommendation 83 yo M with left posterior elbow dislocation - chronic 1. NWB KAMILA 2. follow up with orthopedics in 1 week to get patient to an academic center as an outpatient for possible open elbow surgery; patient is at higher risk due to all his comorbidities; 3. pain control 4. no acute surgery as inpatient planned Plan discussed with: Patient LULA PRIEST MD Jun 20, 2024 06:11
[2024-06-20 06:27] LABS: Blood Urea Nitrogen 56 mg/dL (9-23); Calcium 11.2 mg/dL (8.7-10.4); Glucose 189 mg/dL (74-106)
[2024-06-20 06:33] LABS: Basophils # (auto) 0 10 ^3/uL (0-0.2); Basophils % (auto) 0.1 % (0.0-2.0); Eosinophils # (auto) 0 10 ^3/uL (0-0.8); Hematocrit 46.9 % (41.0-53.0); Hemoglobin 15.3 g/dL (13.5-17.5); Lymphocytes # (auto) 0.5 10 ^3/uL (0.4-5.4); Mean Corpuscular Hemoglobin 30.9 pg (28.0-32.0); Mean Corpuscular Hgb Conc. 32.6 g/dL (32.0-36.0); Mean Corpuscular Volume 94.9 fL (80.0-100.0); Monocytes # (auto) 0.6 10 ^3/uL (0-1.3); Monocytes % (auto) 5.2 % (0.0-12.0); Neutrophils # (auto) 9.8 10 ^3/uL (1.6-8.6); Neutrophils % (auto) 89.7 % (37.0-80.0); Nucleated Red Blood Cells % 0.1 %; Platelet Count (auto) 236 10^3/uL (140-450); Red Blood Cells 4.95 10^6/uL (4.5-5.90); Red Cell Distribution Width 18.1 % (11.8-14.3); White Blood Cell 10.9 10^3/uL (4.4-10.8)
[2024-06-20] MEDS: methylPREDNISolone SOD SUCC 40 MG/ML VL IV SCH (09:45)
[2024-06-20] MEDS ORDERED: methylPREDNISolone SOD SUCC 40 MG/ML VL IV SCH (10:00)
[2024-06-20 10:34] LABS: Hepatitis B Surface Antigen Negative (Negative); Hepatitis C Antibody Negative (Negative)
--- NOTE | 2024-06-20 10:58 | DVHPN2 ---
Progress Note Date Seen: Jun 20, 2024 Has the PT tested + for MRSA If YES, has PT been informed?: Yes Medical Necessity Reason Pt with a Central, PICC or Fol: No Subjective Review of Systems: HEENT:Normal Objective vital signs Vital Sign Date Time Temp Pulse Resp B/P (MAP) Pulse Ox O2 Delivery O2 Flow Rate FiO2 06/20/24 09:48 91 121/61 06/20/24 09:00 97.3 16 91 97.3 06/19/24 20:00 Nasal Cannula* 2 28 Total Intake and Output 06/19/24 06/19/24 06/20/24 15:00 23:00 07:00 Intake Total 50 ml Output Total 400 ml Balance 50 ml -400 ml medications Current Medications Medications Dose Ordered Sig/Benjamín Route Start Time Stop Time Status Last Admin Dose Admin Atorvastatin Calcium 40 mg HS PO 06/18/24 22:00 06/19/24 22:04 40 MG Ceftriaxone Sodium 50 ml @ 100 mls/hr DAILY@09 IV 06/18/24 09:00 06/20/24 08:33 100 MLS/HR Amlodipine Besylate 10 mg DAILY PO 06/18/24 10:00 06/20/24 09:47 10 MG Aspirin 81 mg DAILY PO 06/18/24 10:00 06/20/24 09:48 81 MG Clopidogrel Bisulfate 75 mg DAILY PO 06/18/24 10:00 06/20/24 09:48 75 MG Finasteride 5 mg DAILY PO 06/18/24 10:00 06/20/24 09:48 5 MG Levothyroxine Sodium 100 mcg DAILY PO 06/18/24 10:00 06/20/24 09:48 100 MCG Pantoprazole Sodium 40 mg DAILY PO 06/18/24 10:00 06/20/24 09:48 40 MG Tamsulosin HCl 0.4 mg QPM PO 06/18/24 18:00 06/19/24 17:12 0.4 MG Diagnostic Test (Pha) 1 strip ACHS 06/18/24 07:00 06/20/24 06:43 1 STRIP Insulin Human Regular ACHS SC 06/18/24 07:00 06/20/24 06:44 3 UNITS Dextrose 50 ml UD PRN IV 06/18/24 06:15 Heparin Sodium (Porcine) 5,000 units Q12HR SC 06/18/24 10:00 06/20/24 09:51 5,000 UNITS Ergocalciferol 50,000 unit Q7D PO 06/18/24 08:00 06/18/24 09:41 50,000 UNIT Acetaminophen/ Hydrocodone Bitart 1 tab Q6HPRN PRN PO 06/18/24 10:00 06/18/24 11:12 1 TAB Morphine Sulfate 1 mg Q4HP PRN IV 06/18/24 10:00 06/18/24 23:23 1 MG Sodium Chloride 1,000 ml @ 75 mls/hr [id number] IV 06/18/24 11:00 06/19/24 00:20 75 MLS/HR Azithromycin 500 mg DAILY PO 06/19/24 10:00 06/20/24 09:46 500 MG Metoprolol Succinate 25 mg DAILY PO 06/19/24 10:00 06/20/24 09:48 25 MG Methylprednisolone Sodium Succinate 20 mg DAILY IV 06/20/24 10:00 06/20/24 09:45 20 MG Examination: GENERAL:Normal, NECK:Normal, CVS:Normal, SKIN:Abnormal laboratory and microbiology Laboratory Tests 06/20/24 05:23 Test 06/20/24 05:23 Range/Units Serum Glucose 189 H 74-106 mg/dL Microbiology Date/Time Source Procedure Growth Status 06/18/24 20:46 Nose MRSA Screen - Final Complete 06/18/24 12:57 Blood Blood Culture - Preliminary NO GROWTH AFTER 24 HOURS OF INCUBATION. Resulted Problem List/Assessment/Plan Problem List/Assessment/Plan Acute kidney injury superimposed Chronic Kidney Disease secondary to hemodynamic mediated Hypercalcemia due to dehydration COPD Diabetes mellitus type 2 Hypertension Chest pain Closely monitor fluid and electrolytes Avoid nephrotoxic medications Strict I&Os Gentle IV fluid hydration kidney ultrasound- mild atrophy otherwise unremarkable Blood pressure control Insulin sliding scale Cardiology consult Plan discussed with: Patient Dietary Evaluation Review Comments: Recommend CCHO-60g cardiac 2gNA LoFat Lo Cholesterol diet, condier Renal Specifi 65g protein restriction with 2gNa 3K, low phos, Expected Outcomes/Goals: controlled DM, controlled uremic symptoms MELISSA TIDWELL MD Jun 20, 2024 10:58
[2024-06-20] MEDS: LIDOCAINE 2% TOPICAL JELLY 5 ML URJT TOP ONE (18:15)
--- NOTE | 2024-06-20 19:49 | DVHDSRES ---
Discharge Summary Date of Admission Resident Creating Document: IZZY TURCIOS RESDIENT Jun 17, 2024 at 23:56 Date of Discharge: Jun 20, 2024 Admitting Diagnosis Shortness of breaths Labs/Diagnostic Data: Laboratory Results Test 06/20/24 10:56 06/20/24 05:23 06/19/24 12:58 06/19/24 05:46 POC Glucose 183 mg/dl (70-106) White Blood Count 10.9 10^3/uL (4.4-10.8) Red Blood Count 4.95 10^6/uL (4.5-5.90) Hemoglobin 15.3 g/dL (13.5-17.5) Hematocrit 46.9 % (41.0-53.0) Mean Corpuscular Volume 94.9 fL (80.0-100.0) Mean Corpuscular Hemoglobin 30.9 pg (28.0-32.0) Mean Corpuscular Hemoglobin Concent 32.6 g/dL (32.0-36.0) Red Cell Distribution Width 18.1 % (11.8-14.3) Platelet Count 236 10^3/uL (140-450) Mean Platelet Volume 9.4 fL (6.9-10.8) Neutrophils (%) (Auto) 89.7 % (37.0-80.0) Lymphocytes (%) (Auto) 5.0 % (10.0-50.0) Monocytes (%) (Auto) 5.2 % (0.0-12.0) Eosinophils (%) (Auto) 0.0 % (0.0-7.0) Basophils (%) (Auto) 0.1 % (0.0-2.0) Neutrophils # (Auto) 9.8 10 ^3/uL (1.6-8.6) Lymphocytes # (Auto) 0.5 10 ^3/uL (0.4-5.4) Monocytes # (Auto) 0.6 10 ^3/uL (0-1.3) Eosinophils # (Auto) 0 10 ^3/uL (0-0.8) Basophils # (Auto) 0 10 ^3/uL (0-0.2) Nucleated Red Blood Cells 0.1 % Sodium Level 138 mmol/L (136-145) Potassium Level 4.6 mmol/L (3.5-5.1) Chloride Level 104 mmol/L (98-107) Carbon Dioxide Level 27 mmol/L (20-31) Anion Gap 7 (5-15) Blood Urea Nitrogen 56 mg/dL (9-23) Creatinine 1.36 mg/dL (0.700-1.30) Glomerular Filtration Rate Calc 52 mL/min (>90) BUN/Creatinine Ratio 41.2 (10.0-20.0) Serum Glucose 189 mg/dL (74-106) Calcium Level 11.2 mg/dL (8.7-10.4) Total Bilirubin 0.5 mg/dL (0.2-1.0) Aspartate Amino Transferase (AST) 15 U/L (13-40) Alanine Aminotransferase (ALT) 13 U/L (7-40) Alkaline Phosphatase 100 U/L (46-116) Total Protein 6.9 g/dL (5.7-8.2) Albumin 4.0 g/dL (3.2-4.8) Prothrombin Time 11.6 sec (9.3-11.8) Prothrombin Time INR 1.10 (0.9-1.15) Hepatitis B Surface Antigen Negative (Negative) Hepatitis C Antibody Negative (Negative) Test 06/18/24 20:46 06/18/24 04:34 06/18/24 01:42 06/17/24 22:33 Influenza Type A Antigen Negative (Negative) Influenza Type B Antigen Negative (Negative) SARS-CoV-2 Antigen (Rapid) Negative (NEGATIVE) Phosphorus Level 4.1 mg/dL (2.4-5.1) Parathyroid Hormone (Intact) 35.7 pg/mL (18.4-80.1) Urine Color Light-yellow (Yellow) Urine Clarity Turbid (Clear) Urine pH 6.5 (5.0-9.0) Urine Specific Cisco 1.012 (1.001-1.035) Urine Protein Trace (Negative) Urine Ketones Negative (Negative) Urine Blood Trace /uL (Negative) Urine Nitrite Negative (Negative) Urine Bilirubin Negative (Negative) Urine Urobilinogen Normal mg/dL (Negative) Urine Leukocyte Esterase 3+ /uL (Negative) Urine RBC 2 /hpf (0 - 3) Urine WBC 534 /hpf (0 - 3) Urine Squamous Epithelial Cells Few /hpf (<5) Urine Bacteria Few /hpf (None Seen) Urine Creatinine 78.90 mg/dL (30.0-125.0) Urine Sodium 47 mmol/L (40-220) Urine Glucose Normal mg/dL (Normal) Urine Total Protein 36.4 mg/dL (1-14) Urine Opiates Screen Pos (NEGATIVE) Urine Fentanyl Screen Neg (NEGATIVE) Urine Barbiturates Screen Neg (NEGATIVE) Urine Phencyclidine Screen Neg (NEGATIVE) Urine Amphetamines Screen Neg (NEGATIVE) Urine Benzodiazepines Screen Neg (NEGATIVE) Urine Cocaine Screen Neg (NEGATIVE) Urine Cannabinoids Screen Neg (NEGATIVE) Troponin I High Sensitivity 12 ng/L (</=54) Thyroid Stimulating Hormone (TSH) 2.99 uIU/mL (0.55-4.78) Test 06/17/24 18:36 Hemoglobin A1c 6.9 % A1C (<5.7) Magnesium Level 2.2 mg/dL (1.6-2.6) B-Type Natriuretic Peptide 60.50 pg/mL (0-100) Vitamin B12 Level 664 pg/mL (211-911) Vitamin D 25-Hydroxy 32.4 ng/mL (30.0-100) Other Laboratory Tests 06/20/24 05:23 Brief Hx & Hospital Course: This is an 83-year-old male with a past medical history of hypertension, hyperlipidemia, COPD, CHF, CAD with s/p CABG, CKD, and gout, who presented to the ED with a chief complaint of chest pain and shortness of breath for 1 day prior to this admission. The patient stated that the chest pain was sharp, stabbing, 8/10 in intensity, continuous, non-radiating, and associated with shortness of breath. The patient was in hospice previously before coming to the hospital. The patient denies fever, flu-like symptoms, sick contacts, blurring of vision, dizziness, diaphoresis, abdominal pain, nausea, vomiting, or any change in bowel and bladder habits. PMHx: Hypertension, hyperlipidemia, COPD (on 2 L of oxygen at home), CHF, coronary artery disease, CKD, gout, PSHx: CABG, PTCA Family history: Noncontributory Social history: Patient is bed-bound, on home hospice care, denies smoking Allergic history: Noncontributory Hospital course: Chest x-ray shows bilateral hyperinflated lung, flattened diaphragm, with prominent bronchovascular marking. Influenza type a, B and COVID 19 over negative, and MRSA nares were negative. The patient was rated on the line of acute on chronic hypoxic/hypercarbic respiratory failure likely due to COPD exacerbation and pneumonia. The patient was given empiric antibiotic including azithromycin, ceftriaxone, IV normal saline, given breathing treatment. Blood culture came negative after 48 hours. EKG was showing RBBB with a occasional PVC, serial trop I was normal echo performed and showed EF 55%, cardiology recommended to continue medical management including aspirin, clopidogrel and atorvastatin. UTI was treatment with IV antibiotic, and home medication for the hypothyroidism, hypertension and hyperlipidemia were continued. Due to left elbow pain, chest x-ray was performed, showed anterior dislocation of left elbow, orthopedics consulted, recommended outpatient the follow up. Physical evaluation was done, recommended sniff placement for the physical therapy. On 06/20, the patient was feeling better since admission. Discharge plan for sniff placement with discussed with the patient and the patient's discharge. Discharge plan : Placement of patient to the SNF for physical therapy Follow up with the Orthopedics on outpatient basis for the elbow dislocation Capsule doxycycline 100 mg b.i.d. for 3 days Due to urinary retention, urethral catheter was placed Tamiflu 75 mg b.i.d. for 2 days Continue home medicine Operations or Procedures [place] [address] Ph: [phone] DIAGNOSTIC IMAGING Diagnostic Imaging Report : [id number] Signed PATIENT: MEREDITH GOYAL ACCT: [id number] UNIT: [id number] : 1940 LOC: [facility] ROOM / BED: [facility] / A AGE / SEX: 83 / M ADM STATUS: ADM IN SERVICE 0700 ORDERING PHYSICIAN: FRENCH CONTI MD PROCEDURE(s): LELB - L ELBOW 2 VIEW XRAY REASON: better evalaute dislocation and c/f fracture ORDER NUMBER(s): [id number], ACCESSION NUMBER(s): [id number] CLINICAL INDICATION: better evalaute dislocation and c/f fracture TECHNIQUE: 2 views of the left elbow and 2 views of the left forearm XY L ELBOW 2 VIEW XRAY, XY L FOREARM XRAY Comparison: XY L ELBOW 2 VIEW XRAY on DOS: 06/18/24 FINDINGS/IMPRESSION: Redemonstration of a posterior elbow dislocation. This may be partially reduced when compared with 06/18/2024 although evaluation of alignment is limited without inclusion of a true lateral view. No definite associated fractures are seen. Regional soft tissue swelling. ATED BY: BIBI TEMPLETON DO DICTATED DATE/TIME: 06/19/241007 SIGNED BY: BIBI TEMPLETON DO SIGNED DATE/TIME: 06/19/241007 CC: [place] [address] Ph: [phone] DIAGNOSTIC IMAGING Diagnostic Imaging Report : [id number] Signed PATIENT: MEREDITH GOYAL ACCT: [id number] UNIT: [id number] : 1940 LOC: [facility] ROOM / BED: [facility] / A AGE / SEX: 83 / M ADM STATUS: ADM IN SERVICE 040 ORDERING PHYSICIAN: IZZY TURCIOS RESDIPRECIOUS PROCEDURE(s): KIDUS - KIDNEY REASON: DEBBIE ORDER NUMBER(s): [id number], ACCESSION NUMBER(s): [id number] INDICATION: DEBBIE TECHNIQUE: Multiple real-time sonographic images of the kidneys and bladder were obtained. COMPARISON: None FINDINGS: The right kidney measures 11.3 cm in length. The left kidney measures 10.2 cm in length. There is no hydronephrosis. Mild thinning of the renal cortices. No sonographically evident cystic or solid mass. There is mild urinary bladder wall thickening. Patient unable to void secondary to agitation. IMPRESSION: 1. Mild bilateral renal cortical atrophy 2. Possible mild urinary bladder wall thickening correlation with urinalysis is recommended. ATED BY: ASA VÁSQUEZ MD DICTATED DATE/TIME: 06/19/24534 SIGNED BY: ASA VÁSQUEZ MD SIGNED DATE/TIME: 06/19/24534 CC: Condition at Discharge: Fair Final Diagnosis/Problems List Acute metabolic encephalopathy, likely due to respiratory failure/sepsis Acute on chronic hypoxic/hypercarbic respiratory failure likely due to COPD exacerbation/pneumonia Acute COPD exacerbation Pneumonia, likely due to Gram-positive Gram-negative viral Sepsis, likely due to pneumonia/UTI Acute on chronic decompensated HFimEF Chest pain, likely noncardiac Acute on chronic decompensated HFimEF, NYHA class III History of diastolic heart failure Ischemic cardiomyopathy Coronary artery disease status post triple-vessel CABG and multiple PTCAs x4 VIVI (on Brilinta and Aspirin) PAD status post angioplasty with peripheral stents (on Plavix and Aspirin) Myocardial infarction in 2019 Chest pain, likely noncardiac UTI , likely cystitis Hypertensive heart disease Hypothyroidism Anterior elbow dislocation DEBBIE, on CKD grade 2, likely hemodynamically mediated Hypercalcemia, likely due to dehydration Hyperlipidemia Hypertension Diabetes mellitus type 2 BPH Chronic gout Discharge Disposition: Long-Term Facility Discharge Instruct/Medications Diet: Cardiac 2g Na,low cholest Activity: No Restrictions, As Tolerated Follow Up/Referral: follow up witht the PCP within one week after discharge follow up with the orhtopedics on out patien basis, for elbow disclocation Medications: per transfer paper. Discharge Statement: "Patient was advised to return to the ER or call 911 if any headaches, dizziness, shortness of breath, chest pain, abdominal pain, bleeding, fevers, or worsening of medical condition. Patient was counseled about treatment plan, medications, possible side effects, patientverbalized understanding. All questions were answered to the best of my ability. This discharge took greater then 30 minutes in planning, reviewing documentation, counseling the patient, and discussing with other team members." ASSESSMENT ASSESSMENT Assessment acute hypoxic respiratory failure elbow dislocation Date of Service: Jun 20, 2024 Billing Provider: RENA HERNANDEZ MD Common Visit Codes: 30945-QRV/OBS DISCH DAY >30min KAROLINAKHAIDARREL RESDIENT Jun 20, 2024 19:49 RENA HERNANDEZ MD Jun 27, 2024 09:30
[2024-06-21] VITALS (10 sets, daily range): BP systolic 93–127; BP diastolic 45–66; PULSE 82–100; RESP 16–20; TEMP 97.3–97.5; O2SAT 96–99
[2024-06-21 06:13] LABS: Basophils # (auto) 0 10 ^3/uL (0-0.2); Eosinophils # (auto) 0 10 ^3/uL (0-0.8); Hemoglobin 13.7 g/dL (13.5-17.5); Lymphocytes % (auto) 9.4 % (10.0-50.0); Mean Corpuscular Hemoglobin 31.6 pg (28.0-32.0); Mean Corpuscular Hgb Conc. 33.5 g/dL (32.0-36.0); Mean Corpuscular Volume 94.3 fL (80.0-100.0); Monocytes # (auto) 0.8 10 ^3/uL (0-1.3); Monocytes % (auto) 7.8 % (0.0-12.0); Neutrophils # (auto) 8.8 10 ^3/uL (1.6-8.6); Neutrophils % (auto) 82.8 % (37.0-80.0); Nucleated Red Blood Cells % 0.1 %; Platelet Count (auto) 194 10^3/uL (140-450); Red Blood Cells 4.35 10^6/uL (4.5-5.90); Red Cell Distribution Width 18.2 % (11.8-14.3); White Blood Cell 10.6 10^3/uL (4.4-10.8)
[2024-06-21 06:43] LABS: Alanine Aminotransferase 13 U/L (7-40); Albumin 3.8 g/dL (3.2-4.8); Alkaline Phosphatase 88 U/L (46-116); Anion Gap 10 (5-15); Aspartate Aminotransferase 13 U/L (13-40); BUN/Creatinine Ratio 41.7 (10.0-20.0); Bilirubin, Total 0.6 mg/dL (0.2-1.0); Carbon Dioxide 25 mmol/L (20-31); Chloride 104 mmol/L (98-107); Potassium 3.9 mmol/L (3.5-5.1); Sodium 139 mmol/L (136-145); Total Protein 6.5 g/dL (5.7-8.2)
[2024-06-21 06:49] LABS: Blood Urea Nitrogen 40 mg/dL (9-23); Calcium 11.2 mg/dL (8.7-10.4); Glucose 138 mg/dL (74-106)
--- NOTE | 2024-06-21 16:22 | DVHPNRES ---
Progress Note Date Seen: Jun 21, 2024 Resident Creating Document: IZZY TURCIOS SANJEEV Has the PT tested + for MRSA If YES, has PT been informed?: Yes Medical Necessity Reason Pt with a Central, PICC or Fol: No Subjective Review of Systems This is an 83-year-old male with a past medical history of hypertension, hyperlipidemia, COPD, CHF, CAD with s/p CABG, CKD, and gout, who presented to the ED with a chief complaint of chest pain and shortness of breath for 1 day prior to this admission. The patient stated that the chest pain was sharp, stabbing, 8/10 in intensity, continuous, non-radiating, and associated with shortness of breath. The patient was in hospice previously before coming to the hospital. The patient denies fever, flu-like symptoms, sick contacts, blurring of vision, dizziness, diaphoresis, abdominal pain, nausea, vomiting, or any change in bowel and bladder habits. PMHx: Hypertension, hyperlipidemia, COPD (on 2 L of oxygen at home), CHF, coronary artery disease, CKD, gout, PSHx: CABG, PTCA Family history: Noncontributory Social history: Patient is bed-bound, on home hospice care, denies smoking Allergic history: Noncontributory Today, patient seen and examined at the bedside. Patient is feeling better since admission, but still complaining of shortness of breaths and left elbow pain. Objective vital signs Vital Sign Date Time Temp Pulse Resp B/P (MAP) Pulse Ox O2 Delivery O2 Flow Rate FiO2 06/21/24 13:00 97.4 90 18 113/59 (77) 98 97.4 06/21/24 08:05 Nasal Cannula* 2 28 Total Intake and Output 06/20/24 06/20/24 06/21/24 15:00 23:00 07:00 Intake Total 1954 ml 904 ml 100 ml Output Total 600 ml 600 ml Balance 1954 ml 304 ml -500 ml medications Current Medications Medications Dose Ordered Sig/Benjamín Route Start Time Stop Time Status Last Admin Dose Admin Atorvastatin Calcium 40 mg HS PO 06/18/24 22:00 06/20/24 21:44 40 MG Amlodipine Besylate 10 mg DAILY PO 06/18/24 10:00 06/20/24 09:47 10 MG Aspirin 81 mg DAILY PO 06/18/24 10:00 06/21/24 10:20 81 MG Clopidogrel Bisulfate 75 mg DAILY PO 06/18/24 10:00 06/21/24 10:20 75 MG Finasteride 5 mg DAILY PO 06/18/24 10:00 06/21/24 10:20 5 MG Levothyroxine Sodium 100 mcg DAILY PO 06/18/24 10:00 06/21/24 10:21 100 MCG Pantoprazole Sodium 40 mg DAILY PO 06/18/24 10:00 06/21/24 10:20 40 MG Tamsulosin HCl 0.4 mg QPM PO 06/18/24 18:00 06/20/24 17:38 0.4 MG Diagnostic Test (Pha) 1 strip ACHS 06/18/24 07:00 06/21/24 11:54 1 STRIP Insulin Human Regular ACHS SC 06/18/24 07:00 06/21/24 11:54 4 UNITS Dextrose 50 ml UD PRN IV 06/18/24 06:15 Heparin Sodium (Porcine) 5,000 units Q12HR SC 06/18/24 10:00 06/21/24 10:31 5,000 UNITS Ergocalciferol 50,000 unit Q7D PO 06/18/24 08:00 06/18/24 09:41 50,000 UNIT Acetaminophen/ Hydrocodone Bitart 1 tab Q6HPRN PRN PO 06/18/24 10:00 06/18/24 11:12 1 TAB Morphine Sulfate 1 mg Q4HP PRN IV 06/18/24 10:00 06/20/24 11:09 1 MG Sodium Chloride 1,000 ml @ 75 mls/hr [id number] IV 06/18/24 11:00 06/21/24 14:47 75 MLS/HR Metoprolol Succinate 25 mg DAILY PO 06/19/24 10:00 06/21/24 10:00 25 MG Methylprednisolone Sodium Succinate 20 mg DAILY IV 06/20/24 10:00 06/21/24 10:19 20 MG Doxycycline Monohydrate 100 mg Q12HR PO 06/21/24 22:00 Examination General Appearance: Alert, Oriented to place and person, disoriented to time, in moderate respiratory distress HEENT: Atraumatic, PERRLA, EOMI, Mucous membrane moist/pink Respiratory: Bilateral mild crackles Cardiovascular: Regular rate, Normal S1, Normal S2, No murmurs, no chest wall tenderness Abdominal: Normal bowel sounds, Soft, No tenderness, No hepatospenomegaly, No masses Extremities: Left elbow pain, with decreased range of motion Skin: No rashes, No breakdown, No significant lesion Neuro: Patient is bed-bound, could not perform complete neurological exam Psych/Mental Status: Mental status NL, Mood NL laboratory and microbiology Laboratory Tests 06/21/24 05:07 Test 06/21/24 05:07 Range/Units Serum Glucose 138 H 74-106 mg/dL Microbiology Date/Time Source Procedure Growth Status 06/18/24 20:46 Nose MRSA Screen - Final Complete 06/18/24 12:57 Blood Blood Culture - Preliminary NO GROWTH AFTER 72 HOURS OF INCUBATION. Resulted Labs and/or images reviewed: Labs reviewed by me, Image(s) reviewed by me Problem List/Assessment/Plan Problem List/Assessment/Plan Acute metabolic encephalopathy, likely due to respiratory failure/sepsis Acute on chronic hypoxic/hypercarbic respiratory failure likely due to COPD exacerbation/pneumonia Acute COPD exacerbation Pneumonia, likely due to Gram-positive Gram-negative viral Sepsis, likely due to pneumonia/UTI Chest x-ray shows bilateral hyperinflated lung, flattened diaphragm, with prominent bronchovascular marking Check influenza type a, type B, COVID-19, MRSA nares screening Urine/blood/sputum culture Empiric antibiotics, azithromycin and ceftriaxone Nebulization IV fluids Acute on chronic decompensated HFimEFChest pain, likely noncardiac Acute on chronic decompensated HFimEF, NYHA class III Ischemic cardiomyopathy Coronary artery disease status post triple-vessel CABG and multiple PTCAs x4 VIVI (on Brilinta and Aspirin) PAD status post angioplasty with peripheral stents (on Plavix and Aspirin) Myocardial infarction in 2019 Chest pain, likely noncardiac EKG shows RBBB, with occasional PVCs Serial trop I level is normal Echo shows, ejection fraction 55%, previous echo from 10/16/2022 shows EF 40% Cardiology on the board Aspirin 81 mg daily Clopidogrel 75 mg daily Atorvastatin 40 mg daily UTI Urinalysis shows, UTI picture IV antibiotic Hypothyroidism continue levothyroxine Anterior elbow dislocation Elbow x-ray shows, anterior dislocation of her left elbow Orthopedics on the board DEBBIE, CKD grade 2, likely hemodynamically mediated Hypercalcemia, likely due to dehydration Nephrology on the board Ultrasound shows mild atrophy kidney Obesity, patient was counseled for the lifestyle for more than 13 minutes Hyperlipidemia Continue atorvastatin Hypertension Continue amlodipine, and metoprolol Diabetes mellitus type 2 Insulin according to SS BPH Continue finasteride and tamsulosin DIET: Renal diet DVT PROPHYLAXIS: Lovenox GI PROPHYLAXIS:: Protonix BOWEL REGIMEN: Colace 100 mg p.r.n. CODE STATUS: Goal of care discussed for more than 25 minutes with the of the patient, full code DISPOSITION: Telemetry Patient's status discussed with the patient and the on the bedside. Patient has been discharged to the SNF for physical therapy, patient has been approved by the DOA in, waiting for the room and authorization. Case discussed with Dr. Hebert Plan discussed with: Patient, Spouse, Other (RN) My Orders My Orders Orders - IZZY TURCIOS RESDIPRECIOUS Procedure Category Date Status Time Doxycycline Tablet PHA 06/21/24 In Process (Vibramycin Tablet) 22:00 Dietary Evaluation Review Comments: Recommend CCHO-60g cardiac 2gNA LoFat Lo Cholesterol diet, condier Renal Specifi 65g protein restriction with 2gNa 3K, low phos, Expected Outcomes/Goals: controlled DM, controlled uremic symptoms Date of Service: Jun 21, 2024 Billing Provider: RENA HERNANDEZ MD Common Visit Codes: 11937-[id number] INP/OBS CARE(HIGH) IZZY TURCIOS RESDIENT Jun 21, 2024 16:22 RENA HERNANDEZ MD Jun 26, 2024 09:07
[2024-06-21] MEDS: DOXYCYCLINE 100 MG TAB/CAP PO SCH (22:25)
[2024-06-22] VITALS (7 sets, daily range): BP systolic 104–169; BP diastolic 54–85; PULSE 81–101; RESP 17–20; TEMP 97–98.4; O2SAT 95–98
[2024-06-22 07:53] LABS: Basophils # (auto) 0 10 ^3/uL (0-0.2); Basophils % (auto) 0.2 % (0.0-2.0); Eosinophils # (auto) 0 10 ^3/uL (0-0.8); Eosinophils % (auto) 0.1 % (0.0-7.0); Hematocrit 41.5 % (41.0-53.0); Hemoglobin 13.6 g/dL (13.5-17.5); Lymphocytes # (auto) 1.1 10 ^3/uL (0.4-5.4); Lymphocytes % (auto) 11.2 % (10.0-50.0); Mean Corpuscular Hemoglobin 30.8 pg (28.0-32.0); Mean Corpuscular Hgb Conc. 32.7 g/dL (32.0-36.0); Mean Corpuscular Volume 94.2 fL (80.0-100.0); Monocytes # (auto) 0.7 10 ^3/uL (0-1.3); Monocytes % (auto) 7.2 % (0.0-12.0); Neutrophils # (auto) 7.6 10 ^3/uL (1.6-8.6); Neutrophils % (auto) 81.3 % (37.0-80.0); Platelet Count (auto) 187 10^3/uL (140-450); Red Cell Distribution Width 18.2 % (11.8-14.3); White Blood Cell 9.4 10^3/uL (4.4-10.8)
[2024-06-22 08:11] LABS: Alanine Aminotransferase 13 U/L (7-40); Albumin 3.6 g/dL (3.2-4.8); Alkaline Phosphatase 86 U/L (46-116); Anion Gap 7 (5-15); Aspartate Aminotransferase 15 U/L (13-40); Carbon Dioxide 27 mmol/L (20-31); Chloride 105 mmol/L (98-107); Potassium 3.9 mmol/L (3.5-5.1); Sodium 139 mmol/L (136-145)
[2024-06-22 08:12] LABS: Bilirubin, Total 0.6 mg/dL (0.2-1.0); Total Protein 6.1 g/dL (5.7-8.2)
[2024-06-22 08:43] LABS: Blood Urea Nitrogen 26 mg/dL (9-23); Calcium 10.7 mg/dL (8.7-10.4); Glucose 122 mg/dL (74-106)
[2024-06-22] MEDS: ENOXAPARIN SOD 40 MG/0.4 ML SYRINGE SC SCH (10:30)
--- NOTE | 2024-06-22 15:34 | DVHPNRES ---
Progress Note Date Seen: Jun 22, 2024 Resident Creating Document: IZZY TURCIOS SANJEEV Has the PT tested + for MRSA If YES, has PT been informed?: Yes Medical Necessity Reason Pt with a Central, PICC or Fol: No Subjective Review of Systems This is an 83-year-old male with a past medical history of hypertension, hyperlipidemia, COPD, CHF, CAD with s/p CABG, CKD, and gout, who presented to the ED with a chief complaint of chest pain and shortness of breath for 1 day prior to this admission. The patient stated that the chest pain was sharp, stabbing, 8/10 in intensity, continuous, non-radiating, and associated with shortness of breath. The patient was in hospice previously before coming to the hospital. The patient denies fever, flu-like symptoms, sick contacts, blurring of vision, dizziness, diaphoresis, abdominal pain, nausea, vomiting, or any change in bowel and bladder habits. PMHx: Hypertension, hyperlipidemia, COPD (on 2 L of oxygen at home), CHF, coronary artery disease, CKD, gout, PSHx: CABG, PTCA Family history: Noncontributory Social history: Patient is bed-bound, on home hospice care, denies smoking Allergic history: Noncontributory Today, patient seen and examined at the bedside. Patient is feeling better since admission, but still complaining of shortness of breaths and left elbow pain. Patient reports: No new complaints Changes from previous H/P or p: No Changes Objective vital signs Vital Sign Date Time Temp Pulse Resp B/P (MAP) Pulse Ox O2 Delivery O2 Flow Rate FiO2 06/22/24 13:26 97.0 81 20 104/54 (71) 95 97.0 06/21/24 20:00 Nasal Cannula* 2 28 Total Intake and Output 06/21/24 06/21/24 06/22/24 15:00 23:00 07:00 Intake Total 1430 ml 580 ml 600 ml Output Total 700 ml 900 ml Balance 1430 ml -120 ml -300 ml medications Current Medications Medications Dose Ordered Sig/Benjamín Route Start Time Stop Time Status Last Admin Dose Admin Atorvastatin Calcium 40 mg HS PO 06/18/24 22:00 06/21/24 22:25 40 MG Amlodipine Besylate 10 mg DAILY PO 06/18/24 10:00 06/20/24 09:47 10 MG Aspirin 81 mg DAILY PO 06/18/24 10:00 06/22/24 10:30 81 MG Clopidogrel Bisulfate 75 mg DAILY PO 06/18/24 10:00 06/22/24 10:35 75 MG Finasteride 5 mg DAILY PO 06/18/24 10:00 06/22/24 10:35 5 MG Levothyroxine Sodium 100 mcg DAILY PO 06/18/24 10:00 06/22/24 10:36 100 MCG Pantoprazole Sodium 40 mg DAILY PO 06/18/24 10:00 06/22/24 10:36 40 MG Tamsulosin HCl 0.4 mg QPM PO 06/18/24 18:00 06/21/24 17:47 0.4 MG Diagnostic Test (Pha) 1 strip ACHS 06/18/24 07:00 06/22/24 11:30 1 STRIP Insulin Human Regular ACHS SC 06/18/24 07:00 06/22/24 11:30 3 UNITS Dextrose 50 ml UD PRN IV 06/18/24 06:15 Ergocalciferol 50,000 unit Q7D PO 06/18/24 08:00 06/18/24 09:41 50,000 UNIT Acetaminophen/ Hydrocodone Bitart 1 tab Q6HPRN PRN PO 06/18/24 10:00 06/18/24 11:12 1 TAB Morphine Sulfate 1 mg Q4HP PRN IV 06/18/24 10:00 06/21/24 18:48 1 MG Metoprolol Succinate 25 mg DAILY PO 06/19/24 10:00 06/21/24 10:00 25 MG Methylprednisolone Sodium Succinate 20 mg DAILY IV 06/20/24 10:00 06/22/24 10:30 20 MG Doxycycline Monohydrate 100 mg Q12HR PO 06/21/24 22:00 06/22/24 10:36 100 MG Enoxaparin Sodium 40 mg DAILY SC 06/22/24 10:00 06/22/24 10:30 40 MG Examination General Appearance: Alert, Oriented to place and person, disoriented to time, in moderate respiratory distress HEENT: Atraumatic, PERRLA, EOMI, Mucous membrane moist/pink Respiratory: Bilateral mild crackles Cardiovascular: Regular rate, Normal S1, Normal S2, No murmurs, no chest wall tenderness Abdominal: Normal bowel sounds, Soft, No tenderness, No hepatospenomegaly, No masses Extremities: Left elbow pain, with decreased range of motion Skin: No rashes, No breakdown, No significant lesion Neuro: Patient is bed-bound, could not perform complete neurological exam Psych/Mental Status: Mental status NL, Mood NL laboratory and microbiology Laboratory Tests 06/22/24 07:06 Test 06/22/24 07:06 Range/Units Serum Glucose 122 H 74-106 mg/dL Microbiology Date/Time Source Procedure Growth Status 06/18/24 20:46 Nose MRSA Screen - Final Complete 06/18/24 12:57 Blood Blood Culture - Preliminary NO GROWTH AFTER 72 HOURS OF INCUBATION. Resulted Labs and/or images reviewed: Labs reviewed by me, Image(s) reviewed by me Problem List/Assessment/Plan Problem List/Assessment/Plan Acute metabolic encephalopathy, likely due to respiratory failure/sepsis Acute on chronic hypoxic/hypercarbic respiratory failure likely due to COPD exacerbation/pneumonia Acute COPD exacerbation Pneumonia, likely due to Gram-positive Gram-negative viral Sepsis, likely due to pneumonia/UTI Chest x-ray shows bilateral hyperinflated lung, flattened diaphragm, with prominent bronchovascular marking Check influenza type a, type B, COVID-19, MRSA nares screening Urine/blood/sputum culture Empiric antibiotics, azithromycin and ceftriaxone Nebulization IV fluids Acute on chronic decompensated HFimEFChest pain, likely noncardiac Acute on chronic decompensated HFimEF, NYHA class III Ischemic cardiomyopathy Coronary artery disease status post triple-vessel CABG and multiple PTCAs x4 VIVI (on Brilinta and Aspirin) PAD status post angioplasty with peripheral stents (on Plavix and Aspirin) Myocardial infarction in 2019 Chest pain, likely noncardiac EKG shows RBBB, with occasional PVCs Serial trop I level is normal Echo shows, ejection fraction 55%, previous echo from 10/16/2022 shows EF 40% Cardiology on the board Aspirin 81 mg daily Clopidogrel 75 mg daily Atorvastatin 40 mg daily UTI Urinalysis shows, UTI picture IV antibiotic Hypothyroidism continue levothyroxine Anterior elbow dislocation Elbow x-ray shows, anterior dislocation of her left elbow Orthopedics on the board DEBBIE, CKD grade 2, likely hemodynamically mediated Hypercalcemia, likely due to dehydration Nephrology on the board Ultrasound shows mild atrophy kidney Obesity, patient was counseled for the lifestyle for more than 13 minutes Hyperlipidemia Continue atorvastatin Hypertension Continue amlodipine, and metoprolol Diabetes mellitus type 2 Insulin according to SS BPH Continue finasteride and tamsulosin DIET: Renal diet DVT PROPHYLAXIS: Lovenox GI PROPHYLAXIS:: Protonix BOWEL REGIMEN: Colace 100 mg p.r.n. CODE STATUS: Goal of care discussed for more than 25 minutes with the of the patient, full code DISPOSITION: Telemetry Patient's status discussed with the patient and the on the bedside. Patient has been discharged to the SNF for physical therapy, patient has been approved by the DOA in, waiting for the room and authorization. Case discussed with Dr. Hebert Plan discussed with: Patient, Other (RN) My Orders My Orders Orders - IZZY TURCIOS RESDIPRECIOUS Procedure Category Date Status Time Enoxaparin Sodium PHA 06/22/24 In Process (Lovenox) 10:00 Dietary Evaluation Review Comments: Recommend CCHO-60g cardiac 2gNA LoFat Lo Cholesterol diet, condier Renal Specifi 65g protein restriction with 2gNa 3K, low phos, Expected Outcomes/Goals: controlled DM, controlled uremic symptoms Date of Service: Jun 22, 2024 Billing Provider: RENA HERNANDEZ MD Common Visit Codes: [id number] INP/OBS CARE(HIGH) IZZY TURCIOS RESDIENT Jun 22, 2024 15:34 RENA HERNANDEZ MD Jun 26, 2024 09:12
[2024-06-23 05:00] VITALS: BP 133/63; PULSE 92; RESP 18; TEMP 97.8; O2SAT 95
[2024-06-23 05:18] LABS: Basophils # (auto) 0 10 ^3/uL (0-0.2); Eosinophils # (auto) 0 10 ^3/uL (0-0.8); Eosinophils % (auto) 0.1 % (0.0-7.0); Hematocrit 42.1 % (41.0-53.0); Hemoglobin 13.9 g/dL (13.5-17.5); Lymphocytes % (auto) 9.7 % (10.0-50.0); Mean Corpuscular Hemoglobin 30.9 pg (28.0-32.0); Mean Corpuscular Hgb Conc. 32.9 g/dL (32.0-36.0); Monocytes # (auto) 0.6 10 ^3/uL (0-1.3); Monocytes % (auto) 6.5 % (0.0-12.0); Neutrophils # (auto) 8.2 10 ^3/uL (1.6-8.6); Neutrophils % (auto) 83.7 % (37.0-80.0); Nucleated Red Blood Cells % 0.1 %; Platelet Count (auto) 194 10^3/uL (140-450); Red Blood Cells 4.48 10^6/uL (4.5-5.90); Red Cell Distribution Width 18.1 % (11.8-14.3); White Blood Cell 9.9 10^3/uL (4.4-10.8)
[2024-06-23 05:35] LABS: Alanine Aminotransferase 16 U/L (7-40); Albumin 3.6 g/dL (3.2-4.8); Alkaline Phosphatase 85 U/L (46-116); Anion Gap 5 (5-15); Aspartate Aminotransferase 17 U/L (13-40); BUN/Creatinine Ratio 24.7 (10.0-20.0); Bilirubin, Total 0.6 mg/dL (0.2-1.0); Blood Urea Nitrogen 23 mg/dL (9-23); Carbon Dioxide 28 mmol/L (20-31); Chloride 106 mmol/L (98-107); Potassium 4.1 mmol/L (3.5-5.1); Sodium 139 mmol/L (136-145); Total Protein 6.1 g/dL (5.7-8.2)
[2024-06-23 05:39] LABS: Calcium 10.9 mg/dL (8.7-10.4); Glucose 143 mg/dL (74-106)
[2024-06-23 08:51] VITALS: BP 145/70; PULSE 93; RESP 18; TEMP 97.7; O2SAT 97
--- NOTE | 2024-06-23 09:52 | DVHPNRES ---
Progress Note Date Seen: Jun 23, 2024 Resident Creating Document: SHARI AMEZQUITA RESIDENT Has the PT tested + for MRSA If YES, has PT been informed?: Yes Medical Necessity Reason Pt with a Central, PICC or Fol: No Objective vital signs Vital Sign Date Time Temp Pulse Resp B/P (MAP) Pulse Ox O2 Delivery O2 Flow Rate FiO2 06/23/24 08:57 93 146/70 06/23/24 08:51 97.7 18 97 97.7 06/22/24 20:00 Nasal Cannula* 2 28 Total Intake and Output 06/22/24 06/22/24 06/23/24 15:00 23:00 07:00 Intake Total 550 ml 600 ml Output Total 500 ml 800 ml Balance 50 ml -200 ml medications Current Medications Medications Dose Ordered Sig/Benjamín Route Start Time Stop Time Status Last Admin Dose Admin Atorvastatin Calcium 40 mg HS PO 06/18/24 22:00 06/22/24 21:45 40 MG Amlodipine Besylate 10 mg DAILY PO 06/18/24 10:00 06/23/24 08:57 10 MG Aspirin 81 mg DAILY PO 06/18/24 10:00 06/23/24 08:54 81 MG Clopidogrel Bisulfate 75 mg DAILY PO 06/18/24 10:00 06/23/24 08:55 75 MG Finasteride 5 mg DAILY PO 06/18/24 10:00 06/23/24 08:54 5 MG Levothyroxine Sodium 100 mcg DAILY PO 06/18/24 10:00 06/23/24 08:54 100 MCG Pantoprazole Sodium 40 mg DAILY PO 06/18/24 10:00 06/23/24 08:55 40 MG Tamsulosin HCl 0.4 mg QPM PO 06/18/24 18:00 06/22/24 17:59 0.4 MG Diagnostic Test (Pha) 1 strip ACHS 06/18/24 07:00 06/23/24 06:22 1 STRIP Insulin Human Regular ACHS SC 06/18/24 07:00 06/23/24 06:23 2 UNITS Dextrose 50 ml UD PRN IV 06/18/24 06:15 Ergocalciferol 50,000 unit Q7D PO 06/18/24 08:00 06/18/24 09:41 50,000 UNIT Acetaminophen/ Hydrocodone Bitart 1 tab Q6HPRN PRN PO 06/18/24 10:00 06/18/24 11:12 1 TAB Morphine Sulfate 1 mg Q4HP PRN IV 06/18/24 10:00 06/21/24 18:48 1 MG Metoprolol Succinate 25 mg DAILY PO 06/19/24 10:00 06/23/24 08:57 25 MG Methylprednisolone Sodium Succinate 20 mg DAILY IV 06/20/24 10:00 06/23/24 08:53 20 MG Doxycycline Monohydrate 100 mg Q12HR PO 06/21/24 22:00 06/23/24 08:55 100 MG Enoxaparin Sodium 40 mg DAILY SC 06/22/24 10:00 06/23/24 08:54 40 MG laboratory and microbiology Laboratory Tests 06/23/24 04:49 Test 06/23/24 04:49 Range/Units Serum Glucose 143 H 74-106 mg/dL Microbiology Date/Time Source Procedure Growth Status 06/18/24 20:46 Nose MRSA Screen - Final Complete 06/18/24 12:57 Blood Blood Culture - Preliminary NO GROWTH AFTER 72 HOURS OF INCUBATION. Resulted Labs and/or images reviewed: Labs reviewed by me, Image(s) reviewed by me Problem List/Assessment/Plan Problem List/Assessment/Plan This is an 83-year-old male with a past medical history of hypertension, hyperlipidemia, COPD, CHF, CAD with s/p CABG, CKD, and gout, who presented to the ED with a chief complaint of chest pain and shortness of breath for 1 day prior to this admission. The patient stated that the chest pain was sharp, stabbing, 8/10 in intensity, continuous, non-radiating, and associated with shortness of breath. The patient was in hospice previously before coming to the hospital. The patient denies fever, flu-like symptoms, sick contacts, blurring of vision, dizziness, diaphoresis, abdominal pain, nausea, vomiting, or any change in bowel and bladder habits. PMHx: Hypertension, hyperlipidemia, COPD (on 2 L of oxygen at home), CHF, coronary artery disease, CKD, gout, PSHx: CABG, PTCA Family history: Noncontributory Social history: Patient is bed-bound, on home hospice care, denies smoking Allergic history: Noncontributory Today, patient seen and examined at the bedside. Patient is feeling better since admission, but still complaining of shortness of breaths and left elbow pain. Examination General Appearance: Alert, Oriented to place and person, disoriented to time, in moderate respiratory distress HEENT: Atraumatic, PERRLA, EOMI, Mucous membrane moist/pink Respiratory: Bilateral mild crackles Cardiovascular: Regular rate, Normal S1, Normal S2, No murmurs, no chest wall tenderness Abdominal: Normal bowel sounds, Soft, No tenderness, No hepatospenomegaly, No masses Extremities: Left elbow pain, with decreased range of motion Skin: No rashes, No breakdown, No significant lesion Neuro: Patient is bed-bound, could not perform complete neurological exam Psych/Mental Status: Mental status NL, Mood NL laboratory and microbiology Acute metabolic encephalopathy, likely due to respiratory failure/sepsis Acute on chronic hypoxic/hypercarbic respiratory failure likely due to COPD exacerbation/pneumonia Acute COPD exacerbation Pneumonia, likely due to Gram-positive Gram-negative viral Sepsis, likely due to pneumonia/UTI Chest x-ray shows bilateral hyperinflated lung, flattened diaphragm, with prominent bronchovascular marking Check influenza type a, type B, COVID-19, MRSA nares screening Urine/blood/sputum culture Empiric antibiotics, azithromycin and ceftriaxone Nebulization IV fluids Acute on chronic decompensated HFimEFChest pain, likely noncardiac Acute on chronic decompensated HFimEF, NYHA class III Ischemic cardiomyopathy Coronary artery disease status post triple-vessel CABG and multiple PTCAs x4 VIVI (on Brilinta and Aspirin) PAD status post angioplasty with peripheral stents (on Plavix and Aspirin) Myocardial infarction in 2019 Chest pain, likely noncardiac EKG shows RBBB, with occasional PVCs Serial trop I level is normal Echo shows, ejection fraction 55%, previous echo from 10/16/2022 shows EF 40% Cardiology on the board Aspirin 81 mg daily Clopidogrel 75 mg daily Atorvastatin 40 mg daily UTI Urinalysis shows, UTI picture IV antibiotic Hypothyroidism continue levothyroxine Anterior elbow dislocation Elbow x-ray shows, anterior dislocation of her left elbow Orthopedics on the board DEBBIE, CKD grade 2, likely hemodynamically mediated Hypercalcemia, likely due to dehydration Nephrology on the board Ultrasound shows mild atrophy kidney Obesity, patient was counseled for the lifestyle for more than 13 minutes Hyperlipidemia Continue atorvastatin Hypertension Continue amlodipine, and metoprolol Diabetes mellitus type 2 Insulin according to SS BPH Continue finasteride and tamsulosin DIET: Renal diet DVT PROPHYLAXIS: Lovenox GI PROPHYLAXIS:: Protonix BOWEL REGIMEN: Colace 100 mg p.r.n. CODE STATUS: Goal of care discussed for more than 25 minutes with the of the patient, full code DISPOSITION: Telemetry Patient's status discussed with the patient and the on the bedside. Patient has been discharged to the SNF for physical therapy, patient has been approved by the DOA in, waiting for the room and authorization. Case discussed with Dr. Hebert Dietary Evaluation Review Comments: Recommend CCHO-60g cardiac 2gNA LoFat Lo Cholesterol diet, condier Renal Specifi 65g protein restriction with 2gNa 3K, low phos, Expected Outcomes/Goals: controlled DM, controlled uremic symptoms SHARI AMEZQUITA RESIDENT Jun 23, 2024 09:52
[2024-06-23 13:00] VITALS: BP 102/66; PULSE 85; RESP 17; TEMP 97.6; O2SAT 99
[2024-06-23 17:00] VITALS: BP 149/66; PULSE 87; RESP 16; TEMP 97.9; O2SAT 97
--- NOTE | 2024-06-23 18:15 | DVHPNRES ---
Progress Note Date Seen: Jun 23, 2024 Resident Creating Document: SHARI AMEZQUITA RESIDENT Has the PT tested + for MRSA If YES, has PT been informed?: Yes Medical Necessity Reason Pt with a Central, PICC or Fol: No Objective vital signs Vital Sign Date Time Temp Pulse Resp B/P (MAP) Pulse Ox O2 Delivery O2 Flow Rate FiO2 06/23/24 17:00 97.9 87 16 149/66 (93) 97 97.9 06/22/24 20:00 Nasal Cannula* 2 28 Total Intake and Output 06/22/24 06/22/24 06/23/24 15:00 23:00 07:00 Intake Total 550 ml 600 ml Output Total 500 ml 800 ml Balance 50 ml -200 ml medications Current Medications Medications Dose Ordered Sig/Benjamín Route Start Time Stop Time Status Last Admin Dose Admin Atorvastatin Calcium 40 mg HS PO 06/18/24 22:00 06/22/24 21:45 40 MG Amlodipine Besylate 10 mg DAILY PO 06/18/24 10:00 06/23/24 08:57 10 MG Aspirin 81 mg DAILY PO 06/18/24 10:00 06/23/24 08:54 81 MG Clopidogrel Bisulfate 75 mg DAILY PO 06/18/24 10:00 06/23/24 08:55 75 MG Finasteride 5 mg DAILY PO 06/18/24 10:00 06/23/24 08:54 5 MG Levothyroxine Sodium 100 mcg DAILY PO 06/18/24 10:00 06/23/24 08:54 100 MCG Pantoprazole Sodium 40 mg DAILY PO 06/18/24 10:00 06/23/24 08:55 40 MG Tamsulosin HCl 0.4 mg QPM PO 06/18/24 18:00 06/22/24 17:59 0.4 MG Diagnostic Test (Pha) 1 strip ACHS 06/18/24 07:00 06/23/24 11:30 1 STRIP Insulin Human Regular ACHS SC 06/18/24 07:00 06/23/24 11:30 4 UNITS Dextrose 50 ml UD PRN IV 06/18/24 06:15 Ergocalciferol 50,000 unit Q7D PO 06/18/24 08:00 06/18/24 09:41 50,000 UNIT Acetaminophen/ Hydrocodone Bitart 1 tab Q6HPRN PRN PO 06/18/24 10:00 12/31/24 11:12 1 TAB Morphine Sulfate 1 mg Q4HP PRN IV 06/18/24 10:00 06/21/24 18:48 1 MG Metoprolol Succinate 25 mg DAILY PO 06/19/24 10:00 06/23/24 08:57 25 MG Methylprednisolone Sodium Succinate 20 mg DAILY IV 06/20/24 10:00 06/23/24 08:53 20 MG Doxycycline Monohydrate 100 mg Q12HR PO 06/21/24 22:00 06/23/24 08:55 100 MG Enoxaparin Sodium 40 mg DAILY SC 06/22/24 10:00 06/23/24 08:54 40 MG Examination General Appearance: Alert, Oriented to place and person, disoriented to time, in moderate respiratory distress HEENT: Atraumatic, PERRLA, EOMI, Mucous membrane moist/pink Respiratory: Bilateral mild crackles Cardiovascular: Regular rate, Normal S1, Normal S2, No murmurs, no chest wall tenderness Abdominal: Normal bowel sounds, Soft, No tenderness, No hepatospenomegaly, No masses Extremities: Left elbow pain, with decreased range of motion Skin: No rashes, No breakdown, No significant lesion Neuro: Patient is bed-bound, could not perform complete neurological exam Psych/Mental Status: Mental status NL, Mood NL laboratory and microbiology Laboratory Tests 06/23/24 04:49 Test 06/23/24 04:49 Range/Units Serum Glucose 143 H 74-106 mg/dL Microbiology Date/Time Source Procedure Growth Status 06/18/24 20:46 Nose MRSA Screen - Final Complete 06/18/24 12:57 Blood Blood Culture - Final NO GROWTH AFTER 5 DAYS OF INCUBATION. Complete Labs and/or images reviewed: Labs reviewed by me, Image(s) reviewed by me Problem List/Assessment/Plan Problem List/Assessment/Plan Hospital course: Mr. Ford, a 83-year-old male with a history of hypertension, hyperlipidemia, COPD, CHF, CAD with s/p CABG, CKD, and gout presented to the ED with sharp, stabbing chest pain (8/10) and shortness of breath for one day. He was previously in hospice care. He denies fever, flu-like symptoms, sick contacts, vision changes, dizziness, diaphoresis, abdominal pain, nausea, vomiting, or changes in bowel and bladder habits. He is bed-bound, on home hospice care, and denies smoking. On examination, he feels better but still has shortness of breath and left elbow pain. Plan: Acute metabolic encephalopathy, likely due to respiratory failure/sepsis Acute on chronic hypoxic/hypercarbic respiratory failure likely due to COPD exacerbation/pneumonia Acute COPD exacerbation Pneumonia, likely due to Gram-positive Gram-negative viral Sepsis, likely due to pneumonia/UTI Chest x-ray shows bilateral hyperinflated lung, flattened diaphragm, with prominent bronchovascular marking Check influenza type a, type B, COVID-19, MRSA nares screening Urine/blood/sputum culture Empiric antibiotics, azithromycin and ceftriaxone Nebulization IV fluids Acute on chronic decompensated HFimEFChest pain, likely noncardiac Acute on chronic decompensated HFimEF, NYHA class III Ischemic cardiomyopathy Coronary artery disease status post triple-vessel CABG and multiple PTCAs x4 VIVI (on Brilinta and Aspirin) PAD status post angioplasty with peripheral stents (on Plavix and Aspirin) Myocardial infarction in 2019 Chest pain, likely noncardiac EKG shows RBBB, with occasional PVCs Serial trop I level is normal Echo shows, ejection fraction 55%, previous echo from 10/16/2022 shows EF 40% Cardiology on the board Aspirin 81 mg daily Clopidogrel 75 mg daily Atorvastatin 40 mg daily UTI Urinalysis shows, UTI picture IV antibiotic Hypothyroidism continue levothyroxine Anterior elbow dislocation Elbow x-ray shows, anterior dislocation of her left elbow Orthopedics on the board DEBBIE, CKD grade 2, likely hemodynamically mediated Hypercalcemia, likely due to dehydration Nephrology on the board Ultrasound shows mild atrophy kidney Obesity, patient was counseled for the lifestyle for more than 13 minutes Hyperlipidemia Continue atorvastatin Hypertension Continue amlodipine, and metoprolol Diabetes mellitus type 2 Insulin according to SS BPH Continue finasteride and tamsulosin DIET: Renal diet DVT PROPHYLAXIS: Lovenox GI PROPHYLAXIS:: Protonix BOWEL REGIMEN: Colace 100 mg p.r.n. CODE STATUS: Goal of care discussed for more than 25 minutes with the of the patient, full code DISPOSITION: Telemetry Patient's status discussed with the patient and the on the bedside. Patient has been discharged to the SNF for physical therapy, patient has been approved by the DOA in, waiting for the room and authorization. Patient is hemodynamically stable, still waiting for placement. bedside mentioned that can not take care of the patient at home. Case discussed with Dr. Hebert Plan discussed with: Patient, Spouse, Other (primary team, RN) My Orders My Orders Orders - SHARI AMEZQUITA Procedure Category Date Status Time Urine Bacterial TYLER 06/23/24 Logged Culture 15:39 Dietary Evaluation Review Comments: Recommend CCHO-60g cardiac 2gNA LoFat Lo Cholesterol diet, condier Renal Specifi 65g protein restriction with 2gNa 3K, low phos, Expected Outcomes/Goals: controlled DM, controlled uremic symptoms Date of Service: Jun 23, 2024 Billing Provider: RENA HERNANDEZ MD Common Visit Codes: [id number] INP/OBS CARE(HIGH) SHARI AMEZQUITA Jun 23, 2024 18:15 RENA HERNANDEZ MD Jun 26, 2024 09:21
[2024-06-23 20:00] VITALS: PULSE 87; RESP 17; O2SAT 98
[2024-06-23 20:50] VITALS: BP 163/76; PULSE 87; RESP 17; TEMP 97.9; O2SAT 98
[2024-06-24] VITALS (7 sets, daily range): BP systolic 125–141; BP diastolic 64–74; PULSE 76–85; RESP 16–20; TEMP 98–98.2; O2SAT 95–99
[2024-06-24 06:30] LABS: Alanine Aminotransferase 23 U/L (7-40); Albumin 3.6 g/dL (3.2-4.8); Alkaline Phosphatase 83 U/L (46-116); Anion Gap 5 (5-15); Aspartate Aminotransferase 15 U/L (13-40); Carbon Dioxide 30 mmol/L (20-31); Chloride 105 mmol/L (98-107); Sodium 140 mmol/L (136-145)
[2024-06-24 06:31] LABS: Bilirubin, Total 0.7 mg/dL (0.2-1.0); Total Protein 5.9 g/dL (5.7-8.2)
[2024-06-24 06:33] LABS: Calcium 10.7 mg/dL (8.7-10.4); Glucose 135 mg/dL (74-106)
[2024-06-24 07:04] LABS: BUN/Creatinine Ratio 22.8 (10.0-20.0)
[2024-06-24 07:05] LABS: Blood Urea Nitrogen 23 mg/dL (9-23)
[2024-06-24 07:13] LABS: Basophils # (auto) 0 10 ^3/uL (0-0.2); Basophils % (auto) 0.1 % (0.0-2.0); Eosinophils # (auto) 0.1 10 ^3/uL (0-0.8); Eosinophils % (auto) 1.2 % (0.0-7.0); Hemoglobin 14.1 g/dL (13.5-17.5); Lymphocytes # (auto) 1.3 10 ^3/uL (0.4-5.4); Lymphocytes % (auto) 12.6 % (10.0-50.0); Mean Corpuscular Hemoglobin 31.2 pg (28.0-32.0); Mean Corpuscular Hgb Conc. 32.9 g/dL (32.0-36.0); Mean Corpuscular Volume 94.7 fL (80.0-100.0); Monocytes # (auto) 0.8 10 ^3/uL (0-1.3); Neutrophils # (auto) 8.1 10 ^3/uL (1.6-8.6); Neutrophils % (auto) 78.1 % (37.0-80.0); Nucleated Red Blood Cells % 0.1 %; Platelet Count (auto) 178 10^3/uL (140-450); Red Blood Cells 4.54 10^6/uL (4.5-5.90); White Blood Cell 10.4 10^3/uL (4.4-10.8)
--- NOTE | 2024-06-24 18:46 | DVHPNRES ---
Progress Note Date Seen: Jun 24, 2024 Resident Creating Document: IZZY TURCIOS SANJEEV Has the PT tested + for MRSA If YES, has PT been informed?: Yes Medical Necessity Reason Pt with a Central, PICC or Fol: No Subjective Review of Systems This is an 83-year-old male with a past medical history of hypertension, hyperlipidemia, COPD, CHF, CAD with s/p CABG, CKD, and gout, who presented to the ED with a chief complaint of chest pain and shortness of breath for 1 day prior to this admission. The patient stated that the chest pain was sharp, stabbing, 8/10 in intensity, continuous, non-radiating, and associated with shortness of breath. The patient was in hospice previously before coming to the hospital. The patient denies fever, flu-like symptoms, sick contacts, blurring of vision, dizziness, diaphoresis, abdominal pain, nausea, vomiting, or any change in bowel and bladder habits. PMHx: Hypertension, hyperlipidemia, COPD (on 2 L of oxygen at home), CHF, coronary artery disease, CKD, gout, PSHx: CABG, PTCA Family history: Noncontributory Social history: Patient is bed-bound, on home hospice care, denies smoking Allergic history: Noncontributory Today, patient seen and examined at the bedside. Patient is feeling better since admission, but still complaining of shortness of breaths and left elbow pain. Patient reports: No new complaints, Feels better Changes from previous H/P or p: Changes Objective vital signs Vital Sign Date Time Temp Pulse Resp B/P (MAP) Pulse Ox O2 Delivery O2 Flow Rate FiO2 06/24/24 17:53 79 18 129/69 06/24/24 17:00 98.0 96 98.0 06/24/24 08:00 Nasal Cannula* 2 28 Total Intake and Output 06/23/24 06/23/24 06/24/24 15:00 23:00 07:00 Intake Total 730 ml 150 ml Output Total 600 ml 675 ml Balance 130 ml -525 ml medications Current Medications Medications Dose Ordered Sig/Benjamín Route Start Time Stop Time Status Last Admin Dose Admin Atorvastatin Calcium 40 mg HS PO 06/18/24 22:00 06/23/24 21:51 40 MG Amlodipine Besylate 10 mg DAILY PO 06/18/24 10:00 06/24/24 10:42 10 MG Aspirin 81 mg DAILY PO 06/18/24 10:00 06/24/24 10:40 81 MG Clopidogrel Bisulfate 75 mg DAILY PO 06/18/24 10:00 06/24/24 10:40 75 MG Finasteride 5 mg DAILY PO 06/18/24 10:00 06/24/24 10:39 5 MG Pantoprazole Sodium 40 mg DAILY PO 06/18/24 10:00 06/24/24 10:40 40 MG Tamsulosin HCl 0.4 mg QPM PO 06/18/24 18:00 06/24/24 17:37 0.4 MG Diagnostic Test (Pha) 1 strip ACHS 06/18/24 07:00 06/24/24 17:28 1 STRIP Insulin Human Regular ACHS SC 06/18/24 07:00 06/24/24 17:40 3 UNITS Dextrose 50 ml UD PRN IV 06/18/24 06:15 Ergocalciferol 50,000 unit Q7D PO 06/18/24 08:00 06/18/24 09:41 50,000 UNIT Acetaminophen/ Hydrocodone Bitart 1 tab Q6HPRN PRN PO 06/18/24 10:00 06/18/24 11:12 1 TAB Morphine Sulfate 1 mg Q4HP PRN IV 06/18/24 10:00 06/24/24 17:53 1 MG Metoprolol Succinate 25 mg DAILY PO 06/19/24 10:00 06/24/24 10:42 25 MG Methylprednisolone Sodium Succinate 20 mg DAILY IV 06/20/24 10:00 06/24/24 10:39 20 MG Doxycycline Monohydrate 100 mg Q12HR PO 06/21/24 22:00 06/24/24 10:39 100 MG Enoxaparin Sodium 40 mg DAILY SC 06/22/24 10:00 06/24/24 10:39 40 MG Levothyroxine Sodium 100 mcg DAILY@0700 PO 06/25/24 07:00 Examination General Appearance: Alert, Oriented to place and person, disoriented to time, in moderate respiratory distress HEENT: Atraumatic, PERRLA, EOMI, Mucous membrane moist/pink Respiratory: Bilateral mild crackles Cardiovascular: Regular rate, Normal S1, Normal S2, No murmurs, no chest wall tenderness Abdominal: Normal bowel sounds, Soft, No tenderness, No hepatospenomegaly, No masses Extremities: Left elbow pain, with decreased range of motion Skin: No rashes, No breakdown, No significant lesion Neuro: Patient is bed-bound, could not perform complete neurological exam Psych/Mental Status: Mental status NL, Mood NL laboratory and microbiology Laboratory Tests 06/24/24 05:20 Test 06/24/24 05:20 Range/Units Serum Glucose 135 H 74-106 mg/dL Microbiology Date/Time Source Procedure Growth Status 06/18/24 20:46 Nose MRSA Screen - Final Complete 06/18/24 12:57 Blood Blood Culture - Final NO GROWTH AFTER 5 DAYS OF INCUBATION. Complete Labs and/or images reviewed: Labs reviewed by me, Image(s) reviewed by me Problem List/Assessment/Plan Problem List/Assessment/Plan Acute metabolic encephalopathy, likely due to respiratory failure/sepsis Acute on chronic hypoxic/hypercarbic respiratory failure likely due to COPD exacerbation/pneumonia Acute COPD exacerbation Pneumonia, likely due to Gram-positive Gram-negative viral Sepsis, likely due to pneumonia/UTI Chest x-ray shows bilateral hyperinflated lung, flattened diaphragm, with prominent bronchovascular marking Check influenza type a, type B, COVID-19, MRSA nares screening Urine/blood/sputum culture Empiric antibiotics, azithromycin and ceftriaxone Nebulization IV fluids Acute on chronic decompensated HFimEFChest pain, likely noncardiac Acute on chronic decompensated HFimEF, NYHA class III Ischemic cardiomyopathy Coronary artery disease status post triple-vessel CABG and multiple PTCAs x4 VIVI (on Brilinta and Aspirin) PAD status post angioplasty with peripheral stents (on Plavix and Aspirin) Myocardial infarction in 2019 Chest pain, likely noncardiac EKG shows RBBB, with occasional PVCs Serial trop I level is normal Echo shows, ejection fraction 55%, previous echo from 10/16/2022 shows EF 40% Cardiology on the board Aspirin 81 mg daily Clopidogrel 75 mg daily Atorvastatin 40 mg daily UTI Urinalysis shows, UTI picture IV antibiotic Hypothyroidism continue levothyroxine Anterior elbow dislocation Elbow x-ray shows, anterior dislocation of her left elbow Orthopedics on the board DEBBIE, CKD grade 2, likely hemodynamically mediated Hypercalcemia, likely due to dehydration Nephrology on the board Ultrasound shows mild atrophy kidney Obesity, patient was counseled for the lifestyle for more than 13 minutes Hyperlipidemia Continue atorvastatin Hypertension Continue amlodipine, and metoprolol Diabetes mellitus type 2 Insulin according to SS BPH Continue finasteride and tamsulosin DIET: Renal diet DVT PROPHYLAXIS: Lovenox GI PROPHYLAXIS:: Protonix BOWEL REGIMEN: Colace 100 mg p.r.n. CODE STATUS: Goal of care discussed for more than 25 minutes with the of the patient, full code DISPOSITION: Telemetry Patient's status discussed with the patient and the on the bedside. Patient has been discharged to the SNF for physical therapy, patient has been approved by the DOA in, waiting for the room and authorization. Case discussed with Dr. Hebert Plan discussed with: Patient, Other (RN) Dietary Evaluation Review Comments: Recommend CCHO-60g cardiac 2gNA LoFat Lo Cholesterol diet, condier Renal Specifi 65g protein restriction with 2gNa 3K, low phos, Expected Outcomes/Goals: controlled DM, controlled uremic symptoms Date of Service: Jun 24, 2024 Billing Provider: RENA HERNANDEZ MD Common Visit Codes: [id number] INP/OBS CARE(HIGH) IZZY TURCIOS RESDIENT Jun 24, 2024 18:46 RENA HERNANDEZ MD Jun 26, 2024 09:28
[2024-06-25] VITALS (7 sets, daily range): BP systolic 98–140; BP diastolic 54–72; PULSE 73–81; RESP 18–20; TEMP 97.6–97.7; O2SAT 97
[2024-06-25] MEDS: LEVOTHYROXINE SODIUM 100 MCG TAB PO SCH (05:30)
[2024-06-25 07:03] LABS: Hemoglobin 14.7 g/dL (13.5-17.5); Mean Corpuscular Hemoglobin 31.3 pg (28.0-32.0); Mean Corpuscular Hgb Conc. 33.4 g/dL (32.0-36.0); Mean Corpuscular Volume 93.8 fL (80.0-100.0); Platelet Count (auto) 177 10^3/uL (140-450); Red Blood Cells 4.69 10^6/uL (4.5-5.90); Red Cell Distribution Width 17.7 % (11.8-14.3); White Blood Cell 9.8 10^3/uL (4.4-10.8)
[2024-06-25 07:18] LABS: Alanine Aminotransferase 24 U/L (7-40); Alkaline Phosphatase 85 U/L (46-116); Anion Gap 6 (5-15); BUN/Creatinine Ratio 27.5 (10.0-20.0); Blood Urea Nitrogen 22 mg/dL (9-23); Carbon Dioxide 28 mmol/L (20-31); Chloride 104 mmol/L (98-107); Glucose 104 mg/dL (74-106); Sodium 138 mmol/L (136-145)
[2024-06-25 07:19] LABS: Albumin 3.6 g/dL (3.2-4.8); Aspartate Aminotransferase 15 U/L (13-40); Bilirubin, Total 0.8 mg/dL (0.2-1.0)
[2024-06-25 07:20] LABS: Total Protein 5.9 g/dL (5.7-8.2)
[2024-06-25 07:21] LABS: Calcium 10.7 mg/dL (8.7-10.4)
[2024-06-25 07:26] LABS: Band Neutrophils % (manual) 0; Basophils % (manual) 0 (0.0-2.0); Blast Cells 0; Metamyelocytes % 0; Myelocytes % 0; Promyelocytes % 0; Reactive Lymphocytes 0
[2024-06-25 09:05] LABS: Eosinophils % (manual) 2 (0-7); Lymphocytes % (manual) 22 (10.0-50.0); Monocytes % (manual) 2 (0-12); Platelet Estimate Adequate
[2024-06-25] MEDS: ERGOCALCIFEROL 50,000 UNIT(1.25MG) CAP PO SCH (10:42)
--- NOTE | 2024-06-25 18:03 | DVHPNRES ---
Progress Note Date Seen: Jun 25, 2024 Resident Creating Document: IZZY TURCIOS SANJEEV Has the PT tested + for MRSA If YES, has PT been informed?: Yes Medical Necessity Reason Pt with a Central, PICC or Fol: No Subjective Review of Systems This is an 83-year-old male with a past medical history of hypertension, hyperlipidemia, COPD, CHF, CAD status post CABG, CKD, and gout, who presented to the ED with a chief complaint of chest pain and shortness of breath for one day prior to this admission. The patient stated that the chest pain was sharp, stabbing, 8/10 in intensity, continuous, non-radiating, and associated with shortness of breath. The patient was previously in hospice before coming to the hospital. The patient denies fever, flu-like symptoms, sick contacts, blurring of vision, dizziness, diaphoresis, abdominal pain, nausea, vomiting, or any change in bowel and bladder habits. PMHx: Hypertension, hyperlipidemia, COPD (on 2 L of oxygen at home), CHF, coronary artery disease, CKD, gout, PSHx: CABG, PTCA Family history: Noncontributory Social history: Patient is bed-bound, on home hospice care, denies smoking Allergic history: Noncontributory Today, patient seen and examined at the bedside. No significant nighttime event. Patient is feeling better since admission, but still complaining of shortness of breaths and left elbow pain. Patient reports: No new complaints Changes from previous H/P or p: No Changes Objective vital signs Vital Sign Date Time Temp Pulse Resp B/P (MAP) Pulse Ox O2 Delivery O2 Flow Rate FiO2 06/25/24 16:36 97.6 73 18 98/54 (69) 97 97.6 06/25/24 08:00 Nasal Cannula* 2 28 Total Intake and Output 06/24/24 06/24/24 06/25/24 15:00 23:00 07:00 Intake Total 100 ml 50 ml Output Total 850 ml 700 ml Balance -750 ml -650 ml medications Current Medications Medications Dose Ordered Sig/Benjamín Route Start Time Stop Time Status Last Admin Dose Admin Atorvastatin Calcium 40 mg HS PO 06/18/24 22:00 06/24/24 22:02 40 MG Amlodipine Besylate 10 mg DAILY PO 06/18/24 10:00 06/25/24 10:18 10 MG Aspirin 81 mg DAILY PO 06/18/24 10:00 06/25/24 10:17 81 MG Clopidogrel Bisulfate 75 mg DAILY PO 06/18/24 10:00 06/25/24 10:18 75 MG Finasteride 5 mg DAILY PO 06/18/24 10:00 06/25/24 10:18 5 MG Pantoprazole Sodium 40 mg DAILY PO 06/18/24 10:00 06/25/24 10:18 40 MG Tamsulosin HCl 0.4 mg QPM PO 06/18/24 18:00 06/24/24 17:37 0.4 MG Diagnostic Test (Pha) 1 strip ACHS 06/18/24 07:00 06/25/24 17:31 1 STRIP Insulin Human Regular ACHS SC 06/18/24 07:00 06/25/24 12:07 4 UNITS Dextrose 50 ml UD PRN IV 06/18/24 06:15 Acetaminophen/ Hydrocodone Bitart 1 tab Q6HPRN PRN PO 06/18/24 10:00 06/18/24 11:12 1 TAB Morphine Sulfate 1 mg Q4HP PRN IV 06/18/24 10:00 06/24/24 17:53 1 MG Metoprolol Succinate 25 mg DAILY PO 06/19/24 10:00 06/25/24 10:19 25 MG Methylprednisolone Sodium Succinate 20 mg DAILY IV 06/20/24 10:00 06/25/24 10:17 20 MG Doxycycline Monohydrate 100 mg Q12HR PO 06/21/24 22:00 06/25/24 10:17 100 MG Enoxaparin Sodium 40 mg DAILY SC 06/22/24 10:00 06/25/24 10:17 40 MG Levothyroxine Sodium 100 mcg DAILY@0700 PO 06/25/24 07:00 06/25/24 05:30 100 MCG Ergocalciferol 50,000 unit Q7D PO 06/25/24 10:30 06/25/24 10:42 50,000 UNIT Examination General Appearance: Alert, Oriented to place and person, disoriented to time, in moderate respiratory distress HEENT: Atraumatic, PERRLA, EOMI, Mucous membrane moist/pink Respiratory: Bilateral mild crackles Cardiovascular: Regular rate, Normal S1, Normal S2, No murmurs, no chest wall tenderness Abdominal: Normal bowel sounds, Soft, No tenderness, No hepatospenomegaly, No masses Extremities: Left elbow pain, with decreased range of motion Skin: No rashes, No breakdown, No significant lesion Neuro: Patient is bed-bound, could not perform complete neurological exam Psych/Mental Status: Mental status NL, Mood NL laboratory and microbiology laboratory and microbiology Laboratory Tests 06/25/24 05:30 Test 06/25/24 05:30 Range/Units Serum Glucose 104 74-106 mg/dL Microbiology Date/Time Source Procedure Growth Status 06/18/24 20:46 Nose MRSA Screen - Final Complete 06/18/24 12:57 Blood Blood Culture - Final NO GROWTH AFTER 5 DAYS OF INCUBATION. Complete Labs and/or images reviewed: Labs reviewed by me, Image(s) reviewed by me Problem List/Assessment/Plan Problem List/Assessment/Plan This is an 83-year-old male presented to the ED with a chief complaint of chest pain and shortness of breath for one day prior to this admission. The patient stated that the chest pain was sharp, stabbing, 8/10 in intensity, continuous, non-radiating, and associated with shortness of breath. Admitted on 06/17/2024. Acute metabolic encephalopathy, likely due to respiratory failure/sepsis Acute on chronic hypoxic/hypercarbic respiratory failure likely due to COPD exacerbation/pneumonia Acute COPD exacerbation Pneumonia, likely due to Gram-positive Gram-negative viral Sepsis, likely due to pneumonia/UTI Chest x-ray shows bilateral hyperinflated lung, flattened diaphragm, with prominent bronchovascular marking Influenza type a, type B, COVID-19, and MRSA nares screening are negative Blood cultures are negative Continue Empiric antibiotic, doxycycline Discontinue Methylprednisolone, used for 6 days Continue Nebulization p.r.n. Acute on chronic decompensated HFimEFChest pain, likely noncardiac Acute on chronic decompensated HFimEF, NYHA class III Ischemic cardiomyopathy Coronary artery disease status post triple-vessel CABG and multiple PTCAs x4 VIVI (on Brilinta and Aspirin) PAD status post angioplasty with peripheral stents (on Plavix and Aspirin) Myocardial infarction in 2019 Chest pain, likely noncardiac EKG shows RBBB, with occasional PVCs Serial trop I level is normal Echo shows, ejection fraction 55%, previous echo from 10/16/2022 shows EF 40% Cardiology on the board, and recommended; Continue Aspirin 81 mg daily Continue Clopidogrel 75 mg daily Continue Atorvastatin 40 mg daily Continue metoprolol UTI Urinalysis shows, UTI picture IV antibiotic Hypothyroidism continue levothyroxine Anterior elbow dislocation Elbow x-ray shows, anterior dislocation of her left elbow, failed ED doctor attempt for replacement Orthopedics on the board, recommended outpatient follow up DEBBIE, CKD grade 2, likely hemodynamically mediated, improved Hypercalcemia, likely due to dehydration Vitamin-D deficiency, repleted Nephrology on the board Ultrasound shows mild atrophy kidney Obesity, patient was counseled for lifestyle modification including ALT food habit for more than 13 minutes Hyperlipidemia Continue atorvastatin Hypertension Continue amlodipine Diabetes mellitus type 2 Insulin according to my SS BPH Continue finasteride and tamsulosin DIET: Cardiac diet DVT PROPHYLAXIS: Lovenox GI PROPHYLAXIS:: Protonix BOWEL REGIMEN: Colace 100 mg p.r.n. CODE STATUS: Goal of care discussed for more than 25 minutes with the of the patient, full code DISPOSITION: Med/Surg Patient's status discussed with the patient and the on the bedside. Patient has been discharged to the SNF for physical therapy. Today, the insurance company denied SNF approval, and requested peer to peer discussion. Peer to peer discussion performed, and the patient was approved for the SNF replacement. Case discussed with Dr. Hebert Plan discussed with: Patient, Spouse, Other (RN) My Orders My Orders Orders - IZZY TURCIOS RESDIPRECIOUS Procedure Category Date Status Time Ergocalciferol PHA 06/25/24 In Process (Vitamin D 50,000 10:30 Dietary Evaluation Review Comments: Recommend CCHO-60g cardiac 2gNA LoFat Lo Cholesterol diet, condier Renal Specifi 65g protein restriction with 2gNa 3K, low phos, Expected Outcomes/Goals: controlled DM, controlled uremic symptoms Date of Service: Jun 25, 2024 Billing Provider: RENA HERNANDEZ MD Common Visit Codes: [id number] INP/OBS CARE(HIGH) IZZY TURCIOS RESDIENT Jun 25, 2024 18:03 RENA HERNANDEZ MD Jun 26, 2024 09:32
[2024-06-26] VITALS (7 sets, daily range): BP systolic 105–149; BP diastolic 45–74; PULSE 64–88; RESP 17–20; TEMP 36.4; O2SAT 95–98
[2024-06-26 06:04] LABS: Hematocrit 41.5 % (41.0-53.0); Hemoglobin 13.7 g/dL (13.5-17.5); Mean Corpuscular Hemoglobin 31.3 pg (28.0-32.0); Mean Corpuscular Hgb Conc. 32.9 g/dL (32.0-36.0); Platelet Count (auto) 162 10^3/uL (140-450); Red Blood Cells 4.37 10^6/uL (4.5-5.90); Red Cell Distribution Width 18.2 % (11.8-14.3); White Blood Cell 11.3 10^3/uL (4.4-10.8)
[2024-06-26 06:23] LABS: Alanine Aminotransferase 22 U/L (7-40); Alkaline Phosphatase 80 U/L (46-116); Carbon Dioxide 30 mmol/L (20-31); Chloride 103 mmol/L (98-107)
[2024-06-26 06:24] LABS: Albumin 3.5 g/dL (3.2-4.8); Anion Gap 5 (5-15); Aspartate Aminotransferase 16 U/L (13-40); BUN/Creatinine Ratio 25.4 (10.0-20.0); Band Neutrophils % (manual) 0; Basophils % (manual) 0 (0.0-2.0); Bilirubin, Total 0.7 mg/dL (0.2-1.0); Blast Cells 0; Metamyelocytes % 0; Myelocytes % 0; Potassium 4.2 mmol/L (3.5-5.1); Promyelocytes % 0; Reactive Lymphocytes 0; Sodium 138 mmol/L (136-145); Total Protein 5.9 g/dL (5.7-8.2)
[2024-06-26 06:29] LABS: Blood Urea Nitrogen 29 mg/dL (9-23); Calcium 10.5 mg/dL (8.7-10.4); Glucose 112 mg/dL (74-106)
[2024-06-26 08:55] LABS: Eosinophils % (manual) 1 (0-7); Lymphocytes % (manual) 14 (10.0-50.0); Monocytes % (manual) 4 (0-12); Platelet Estimate Adequate
--- NOTE | 2024-06-26 16:11 | DVHPNRES ---
Progress Note Date Seen: Jun 26, 2024 Resident Creating Document: IZZY TURCIOS SANJEEV Has the PT tested + for MRSA If YES, has PT been informed?: Yes Medical Necessity Reason Pt with a Central, PICC or Fol: No Subjective Review of Systems This is an 83-year-old male with a past medical history of hypertension, hyperlipidemia, COPD, CHF, CAD status post CABG, CKD, and gout, who presented to the ED with a chief complaint of chest pain and shortness of breath for one day prior to this admission. The patient stated that the chest pain was sharp, stabbing, 8/10 in intensity, continuous, non-radiating, and associated with shortness of breath. The patient was previously in hospice before coming to the hospital. The patient denies fever, flu-like symptoms, sick contacts, blurring of vision, dizziness, diaphoresis, abdominal pain, nausea, vomiting, or any change in bowel and bladder habits. PMHx: Hypertension, hyperlipidemia, COPD (on 2 L of oxygen at home), CHF, coronary artery disease, CKD, gout, PSHx: CABG, PTCA Family history: Noncontributory Social history: Patient is bed-bound, on home hospice care, denies smoking Allergic history: Noncontributory Today, patient seen and examined at the bedside. No significant nighttime event. Patient is feeling better since admission, but still complaining of shortness of breaths and left elbow pain. Patient reports: No new complaints Changes from previous H/P or p: No Changes Objective vital signs Vital Sign Date Time Temp Pulse Resp B/P (MAP) Pulse Ox O2 Delivery O2 Flow Rate FiO2 06/26/24 13:00 97.7 78 17 117/47 (70) 97 97.7 06/26/24 08:05 Nasal Cannula* 2 28 Total Intake and Output 06/25/24 06/25/24 06/26/24 15:00 23:00 07:00 Intake Total 420 ml 340 ml Output Total 500 ml 375 ml Balance -80 ml -35 ml medications Current Medications Medications Dose Ordered Sig/Benjamín Route Start Time Stop Time Status Last Admin Dose Admin Atorvastatin Calcium 40 mg HS PO 06/18/24 22:00 06/25/24 22:27 40 MG Amlodipine Besylate 10 mg DAILY PO 06/18/24 10:00 06/26/24 10:06 10 MG Aspirin 81 mg DAILY PO 06/18/24 10:00 06/26/24 10:00 81 MG Clopidogrel Bisulfate 75 mg DAILY PO 06/18/24 10:00 06/26/24 10:00 75 MG Finasteride 5 mg DAILY PO 06/18/24 10:00 06/26/24 10:00 5 MG Pantoprazole Sodium 40 mg DAILY PO 06/18/24 10:00 06/26/24 10:00 40 MG Tamsulosin HCl 0.4 mg QPM PO 06/18/24 18:00 06/25/24 17:40 0.4 MG Diagnostic Test (Pha) 1 strip ACHS 06/18/24 07:00 06/26/24 11:58 1 STRIP Insulin Human Regular ACHS SC 06/18/24 07:00 06/26/24 11:59 4 UNITS Dextrose 50 ml UD PRN IV 06/18/24 06:15 Acetaminophen/ Hydrocodone Bitart 1 tab Q6HPRN PRN PO 06/18/24 10:00 06/26/24 15:33 1 TAB Morphine Sulfate 1 mg Q4HP PRN IV 06/18/24 10:00 06/24/24 17:53 1 MG Metoprolol Succinate 25 mg DAILY PO 06/19/24 10:00 06/26/24 10:06 25 MG Methylprednisolone Sodium Succinate 20 mg DAILY IV 06/20/24 10:00 06/26/24 10:00 20 MG Doxycycline Monohydrate 100 mg Q12HR PO 06/21/24 22:00 06/26/24 10:01 100 MG Enoxaparin Sodium 40 mg DAILY SC 06/22/24 10:00 06/26/24 10:01 40 MG Levothyroxine Sodium 100 mcg DAILY@0700 PO 06/25/24 07:00 06/26/24 06:05 100 MCG Ergocalciferol 50,000 unit Q7D PO 06/25/24 10:30 06/25/24 10:42 50,000 UNIT Examination General Appearance: Alert, Oriented to place and person, disoriented to time, in moderate respiratory distress HEENT: Atraumatic, PERRLA, EOMI, Mucous membrane moist/pink Respiratory: Bilateral mild crackles Cardiovascular: Regular rate, Normal S1, Normal S2, No murmurs, no chest wall tenderness Abdominal: Normal bowel sounds, Soft, No tenderness, No hepatospenomegaly, No masses Extremities: Left elbow pain, with decreased range of motion Skin: No rashes, No breakdown, No significant lesion Neuro: Patient is bed-bound, could not perform complete neurological exam Psych/Mental Status: Mental status NL, Mood NL laboratory and microbiology Laboratory Tests 06/26/24 05:13 Test 06/26/24 05:13 Range/Units Serum Glucose 112 H 74-106 mg/dL Microbiology Date/Time Source Procedure Growth Status 06/18/24 20:46 Nose MRSA Screen - Final Complete 06/18/24 12:57 Blood Blood Culture - Final NO GROWTH AFTER 5 DAYS OF INCUBATION. Complete Labs and/or images reviewed: Labs reviewed by me, Image(s) reviewed by me Problem List/Assessment/Plan Problem List/Assessment/Plan This is an 83-year-old male presented to the ED with a chief complaint of chest pain and shortness of breath for one day prior to this admission. The patient stated that the chest pain was sharp, stabbing, 8/10 in intensity, continuous, non-radiating, and associated with shortness of breath. Admitted on 06/17/2024. Acute metabolic encephalopathy, likely due to respiratory failure/sepsis Acute on chronic hypoxic/hypercarbic respiratory failure likely due to COPD exacerbation/pneumonia Acute COPD exacerbation Pneumonia, likely due to Gram-positive Gram-negative viral Sepsis, likely due to pneumonia/UTI Chest x-ray shows bilateral hyperinflated lung, flattened diaphragm, with prominent bronchovascular marking Influenza type a, type B, COVID-19, and MRSA nares screening are negative Blood cultures are negative Continue Empiric antibiotic, doxycycline Discontinue Methylprednisolone, used for 6 days Continue Nebulization p.r.n. Acute on chronic decompensated HFimEFChest pain, likely noncardiac Acute on chronic decompensated HFimEF, NYHA class III Ischemic cardiomyopathy Coronary artery disease status post triple-vessel CABG and multiple PTCAs x4 VIVI (on Brilinta and Aspirin) PAD status post angioplasty with peripheral stents (on Plavix and Aspirin) Myocardial infarction in 2019 Chest pain, likely noncardiac EKG shows RBBB, with occasional PVCs Serial trop I level is normal Echo shows, ejection fraction 55%, previous echo from 10/16/2022 shows EF 40% Cardiology on the board, and recommended; Continue Aspirin 81 mg daily Continue Clopidogrel 75 mg daily Continue Atorvastatin 40 mg daily Continue metoprolol UTI Urinalysis shows, UTI picture IV antibiotic Hypothyroidism continue levothyroxine Anterior elbow dislocation Elbow x-ray shows, anterior dislocation of her left elbow, failed ED doctor attempt for replacement Orthopedics on the board, recommended outpatient follow up DEBBIE, CKD grade 2, likely hemodynamically mediated, improved Hypercalcemia, likely due to dehydration Vitamin-D deficiency, repleted Nephrology on the board Ultrasound shows mild atrophy kidney Obesity, patient was counseled for lifestyle modification including ALT food habit for more than 13 minutes Hyperlipidemia Continue atorvastatin Hypertension Continue amlodipine Diabetes mellitus type 2 Insulin according to my SS BPH Continue finasteride and tamsulosin DIET: Cardiac diet DVT PROPHYLAXIS: Lovenox GI PROPHYLAXIS:: Protonix BOWEL REGIMEN: Colace 100 mg p.r.n. CODE STATUS: Goal of care discussed for more than 25 minutes with the of the patient, full code DISPOSITION: Med/Surg Patient's status discussed with the patient and the on the bedside. Per Cornelio with [facility], the patient will be transferred to the SNF 7:00 p.m. today. Case discussed with Dr. Hebert Plan discussed with: Patient, Other (RN) Dietary Evaluation Review Comments: Recommend CCHO-60g cardiac 2gNA LoFat Lo Cholesterol diet, condier Renal Specifi 65g protein restriction with 2gNa 3K, low phos, Expected Outcomes/Goals: controlled DM, controlled uremic symptoms Date of Service: Jun 26, 2024 Billing Provider: RENA HERNANDEZ MD Common Visit Codes: [id number] INP/OBS CARE(MOD) IZZY TURCIOS RESDIENT Jun 26, 2024 16:11 RENA HERNANDEZ MD Jun 27, 2024 09:17
== END 2024-06-26 19:00 | DRG 871 ==
LOC: EDBD 16:53 → ER 16:53 → OVERFLOW 23:56 → EAST 06-18 20:52
PROVIDERS: ADMIT Student in an Organized Health Care Education/Training Program; ATTEND Emergency Medicine
DX: A41.50 Gram-negative sepsis, unspecified (principal); G93.41 Metabolic encephalopathy; I50.23 Acute on chronic systolic (congestive) heart failure; J15.69 Pneumonia due to other Gram-negative bacteria; J96.22 Acute and chronic respiratory failure with hypercapnia; J96.21 Acute and chronic respiratory failure with hypoxia; J15.9 Unspecified bacterial pneumonia; N17.0 Acute kidney failure with tubular necrosis; N30.00 Acute cystitis without hematuria; J44.1 Chronic obstructive pulmonary disease with (acute) exacerbation; I13.0 Hypertensive heart and chronic kidney disease with heart failure and stage 1 through stage 4 chronic kidney disease, or unspecified chronic kidney disease; J44.0 Chronic obstructive pulmonary disease with (acute) lower respiratory infection; I25.10 Atherosclerotic heart disease of native coronary artery without angina pectoris; Z20.822 Contact with and (suspected) exposure to COVID-19; E66.01 Morbid (severe) obesity due to excess calories; I25.5 Ischemic cardiomyopathy; E11.22 Type 2 diabetes mellitus with diabetic chronic kidney disease; S53.115A Anterior dislocation of left ulnohumeral joint, initial encounter; X58.XXXA Exposure to other specified factors, initial encounter; E03.9 Hypothyroidism, unspecified; N40.0 Benign prostatic hyperplasia without lower urinary tract symptoms; E83.52 Hypercalcemia; I45.10 Unspecified right bundle-branch block; N18.2 Chronic kidney disease, stage 2 (mild); E78.5 Hyperlipidemia, unspecified; E11.51 Type 2 diabetes mellitus with diabetic peripheral angiopathy without gangrene; E86.0 Dehydration; Z95.1 Presence of aortocoronary bypass graft; Z88.0 Allergy status to penicillin; Y93.89 Activity, other specified; Y92.89 Other specified places as the place of occurrence of the external cause; Y99.8 Other external cause status; Z79.899 Other long term (current) drug therapy; Z83.3 Family history of diabetes mellitus; Z87.891 Personal history of nicotine dependence; I25.2 Old myocardial infarction; Z98.62 Peripheral vascular angioplasty status; Z87.440 Personal history of urinary (tract) infections; Z51.5 Encounter for palliative care; Z79.82 Long term (current) use of aspirin; Z79.02 Long term (current) use of antithrombotics/antiplatelets; Z99.81 Dependence on supplemental oxygen; Z68.26 Body mass index [BMI] 26.0-26.9, adult
CPT/HCPCS: 36415; 71045; 73070; 73090; 76775; 80048; 80053; 80307; 81001; 82040; 82247; 82306; 82570; 82607; 82962; 83036; 83735; 83880; 83970; 84075; 84100; 84155; 84156; 84300; 84443; 84450; 84460; 84484; 85007; 85025; 85027; 85610; 86803; 87040; 87081; 87340; 87426; 87804; 93005; 93306; 97110; 97116; 97163; 97530; 99291; G0378; J1815; J2405; J2704